=== PATIENT | female | born 1965 | race Caucasian/White ===

== ENCOUNTER 2025-05-06 11:42 | Outpatient (CLI) | payer MEDICARE, MEDICAID, SELFPAY ==
--- NOTE | ~2025-05-06 | XR_ITS ---
EXAM/PROCEDURE: XR lg joint inject/asp w image HISTORY: Unilateral primary osteoarthritis of left hip COMPARISON: None available. TECHNIQUE: Standard technique for right hip steroid injection. Informed consent obtained in the usual manner. Fluoroscopy time: 0.2 minutes DAP: 0.641 Gycm2 Number of images: 2 Contrast: 1 cc Omnipaque 240 1 mL of steroid injected. Steroid injection: Depo-Medrol 40 mg mixed with 4 cc of 1% lidocaine without epinephrine. Procedure: After informed consent was obtained the left hip was prepped and draped in sterile fashion. Lidocaine was infiltrated and 3.5 22-gauge needle was advanced to the lateral aspect of the left femoral neck. Interarticular location confirmed. Steroid injection performed. No immediate complication. IMPRESSION: Patient status post left hip steroid injection. Reviewed, dictated and finalized at location A. [facility] PSYCHOLOGIST
--- OUTSIDE RECORDS SUMMARY | 2025-05-06 12:24 | XMS_ITS | Encounter Summary ---
Author Organization [facility] Address [address] [place] [address] Phone Care Team Providers Care Newborn Hearing Screener Name Role Phone Wes Quintero MD Unavailable [phone] Tala Hill Primary Care Provider + Encounter Details Date Type Department Care Team (Late st Contact Info) Description 04/10/2025 Social Work [facility] Medicine Oncology [address], [address] [place] [address] Nesha Olmedo LCSW Social History Tobacco Use Types Packs/Day Years Used Date Smoking Tobacco: Former Cigarettes 2007 Passive Smoke Exposure: Past OASIS D0700: Social Isolation Answer Da te Recorded Frequency of experiencing loneliness or isolatio n Never 08/10/2024 OASIS A1250: Transportation Answer Date Recorded Lack of Transportation (Medical) No 08/10/2024 Lack of Transportation (Non-Medical) No 08/10/2024 Patient Unable or Declines to Respond No 08/10/2024 OASIS B1300: Health Literacy Answer Anslemo e Recorded Frequency of needing help to read materials from doctor or pharmacy Never 08/10/2024 AUDIT-C Answer Date Recorded Q1: How often do you have a drink containing alcohol? Never 09/28/2024 Q2: How many drinks containi ng alcohol do you have on a typical day when you are drinking? Patient does not drink Q3: How often do you have si x or more drinks on one occasion? Never 09/28/2024 PHQ-2 Answer Date Recorded PHQ-2 Total Score (If total score is 3 or more points, staff should administer the PHQ-9) 0 07/10/2024 Personal Safety Answer Date Recorded Have you ever been in or are you currently in a harmful physical or emotional relationship or is someone making you feel afraid or unsafe? Denies 09/28/2024 Comments No Sex and Gender Information Value Date Recorded Sex Assigned at Not on file Legal Sex Female 4:08 PM CDT Gender Identity Not on file Sexual Orientation Not on file documented as of this encounter Functional Status documented as of this encounter Progress Notes * Nesha Olmedo LCSW - 04/10/2025 12:07 PM CDT Name: Alayna Hawk Age: 59 y.o. Sex: female Race:White,Ethnicity:Non- (home) [address]: [address] [place] [id number] PCP: Tala Hill Upper Doubler Assessment Referral received from: [facility] [place] Lua Information obtained from: Alayna Hawk Patient alert & oriented x 4 Assessment date: 04/10/2025 Best Phone # to Contact: (cell) OK To Leave a Message: yes e-mail: [email or web address] Primary Language: Persian Communication Barriers: none identified Advance Directives: AD/DPOA: yes Concerns Regarding Abuse/Neglect: No.- Patient denied Concerns Regarding Domestic Violence: No.- Patient denied. Living Arrangements: Alayna lives with her family members. Patient reports, due to financial hardships she relocated to her sister's residence in March 2025, accompanied by her two dogs. Lives in: her house. Patient Identified Barriers To Treatment: Transportation concerns: Yes. Patient report that her 74-year-old sister provides transportation to medical appointments. However, due to difficulty seeing driving at night, transportation becomes a barrier when appointments run late, as her sister is unwilling to drive during those hours. Employment/Financial: Alayna is on disability: SSDI. Patient receives 1025.00 benefits monthly. Food Insecurity: Difficulty obtaining/affording food/preparing food: No. Patient linked to SNAP assistance for food access receives ( $119.00 monthly) Social Work $1025.00 Section 8 Housing Sister take care of her 4 hours per day [place] Medicaid Transportation Insurance Information: Name of primary insurance: Payor: [facility] MEDICARE / Plan: [facility] MEDICARE ADVANTAGE / Product Type: [facility] MEDICARE / Who carries insurance: Alayna Hawk Prescription coverage: : [facility] MEDICARE / Plan: [facility] MEDICARE ADVANTAGE / Product Type: [facility] MEDICARE / Any concerns related to insurance - either immediate or in the future? No. Patient denied having any outstanding balance due at [facility] or [facility]. Patient reports having a medical bills from [place], [place] for $1200.00 and seeking financial assistance. VA Benefits: No. Legal Concerns: No. Social Support System: Patient reports having a good support system consisting of three adult children, family and friendslocal and out of state. Coping: Alayna has mental health concerns: No . Patient denies any current mental health concerns. She expressed a strong determination to live for at least five more years. Patient identifies her roman catholic and volunteer activities as sources of community support she connected to. Physical Health Any concerns regarding ADLs? No Services in the home: None Social Work Plan: Social Work and Social Work Student Elisabeth Krishnan met with the patient in the treatment room to assess social drivers of health. Patient identified a potential future need for transportation assistance, as her 74-year-old sister currently provides transportation to medical appointments. Due to difficulty driving at night, transportation becomes a barrier when appointments extend into evening hours as sister will not drive. Advance Directives Patient reported having an established Durable Power of Call Taker for Health Care and verbally identified her sister as the designated agent. Patient verbally nominate as health care agent: Primary Emergency Contact: Myah Robles Address: [address] [place] [phone] [place] Relation: Sister Transportation Assistance Social Work discussed transportation support options available through the patient's insurance provider ([place] Medicaid) and offered assistance with arranging transportation as needed. Patient wasadvised to contact Social Work or the medical team for support when transportation needs arise. Financial Concerns/Distress Social Work provided information/education on: Facility Based financial assistance program through [facility] and provided application to apply. Patient denied having any questions at this time. Patient's Medical Team provided update. Follow-up: Social Work will remain available to provide support as deemed appropriate. Nesha Olmedo LCSW documented in this encounter Plan of Treatment Not on file documented as of this encounter Visit Diagnoses Not on filedocumented in this encounter Care Teams Newborn Hearing Screener Relationship Specialty Start Date End Date Tala Hill PA [address] [facility] [address] [place] [address] PCP - General Family Medicine 07/10/24 Wes Quintero MD Medical Oncologist/Still Operator [facility] Medical Oncology 04/24/24 documented as of this encounter
--- OUTSIDE RECORDS SUMMARY | 2025-05-06 12:24 | XMS_ITS | Encounter Summary ---
Author Organization [facility] Address [address] [place] [address] Phone Care Team Providers Care Workplace Rehabilitation Officer Name Role Phone No, Physician Primary Care Provider [phone] Wes Quintero MD Unavailable [phone] Wes Quintero MD Primary Care Provider [phone] Tala Hill Primary Care Provider + Encounter Details Date Type Department Care Team (Latest Contact Info) Description 05/21/2024 Orders Only [facility] Scanning, Provider Social History Tobacco Use Types Packs/Day Years Used Date Smoking Tobacco: Former Cigarettes Passive Smoke Exposure: Past OASIS D0700: Social Isolation Answer Da te Recorded Frequency of experiencing loneliness or isolatio n Never 05/08/2024 OASIS A1250: Transportation Answer Date Recorded Lack of Transportation (Medical) Yes 05/08/2024 Lack of Transportation (Non-Medical) Yes 05/08/2024 Patient Unable or Declines to Respond No 05/08/2024 OASIS B1300: Health Literacy Answer Anselmo e Recorded Frequency of needing help to read materials from doctor or pharmacy Never 05/08/2024 Personal Safety Answer Date Recorded Have you ever been in or are you currently in a harmful physical or emotional relationship or is someone making you feel afraid or unsafe? Denies 05/16/2024 Comments Unknown Sex and Gender Information Value Date Recorded Sex Assigned at Not on file Legal Sex Female 4:08 PM CDT Gender Identity Not on file Sexual Orientation Not on file documented as of this encounter Plan of Treatment Not on file documented as of this encounter Procedures Procedure Name Priority Date/Time Associated Diagnosis Comments SCAN - LABS 05/21/2024 documented in this encounter Results * SCAN - LABS (05/21/2024) us Provider Scanning Final Result documented in this encounter Visit Diagnoses Not on filedocumented in this encounter Care Teams Workplace Rehabilitation Officer Relationship Specialty Start Date End Date No, Physician PCP - General 04/24/24 06/03/24 Wes Quintero MD PCP - General Medical Oncology 06/04/24 07/09/24 Tala Hill PA [address] [address] PCP - General Family Medicine 07/10/24 Wes Quintero MD Medical Oncologist/Medical Reviewer Medical Oncology 04/24/24 documented as of this encounter
--- OUTSIDE RECORDS SUMMARY | 2025-05-06 12:24 | XMS_ITS | Clinical Summary ---
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 Role Phone Wes Quintero MD Unavailable [place] Primary Care Provider + Allergies Active Allergy Reactions Criticality Noted Date Comments Venom-Honey Bee Sweating Low 03/13/2025 Unclassified Drug Itching Low 09/03/2024 [id number] [id number] Medications prochlorperazine (COMPAZINE) 10 mg tabletIndications :Cancer Chemotherapy-Mariela bernard Nausea and Vomiting,Nausea and Vomiting Take 1 tablet (10 mg total) by mouth every 6 (six) hours as needed for nausea or vomiting Active albuterol HFA (PROVENTIL HFA,VENTOLIN HFA,PROAIR HFA) 90 mcg/actuation inhalerIndication s:Chronic Obstructive Pulmonary Disease Inhale 2 puffs every 6 (six) hours as needed for wheezing Active loperamide (IMODIUM A-D) 2 mg tabletIndications :Chemotherapy-Ind uced Diarrhea Take 2 tablets (4 mg total) by mouth as needed for diarrhea 30 tablet 11 025 Active Additional Information Patient not taking.Reported on 05/02/[address] (NexIUM) 40 mg capsuleIndication s:Primary adenocarcinoma of right lung (HCC),Primary cancer of right lower lobe of lung (HCC),Primary small cell malignant neoplasm of lung, stage 4 (HCC) Take 1 capsule (40 mg total) by mouth daily before breakfast 30 capsule 11 025 Active HYDROcodone-aceta minophen (NORCO) 5-325 mg per tablet Take 1 tablet by mouth every 6 (six) hours Active lidocaine-priloca ine creamIndications: Administration of Local Anesthesia Apply topically as needed for other (prior to each port access) 30 g 1 Active famotidine (PEPCID) 20 mg tablet Active ondansetron (ZOFRAN) 4 mg tabletIndications :Cancer Chemotherapy-Mariela bernard Nausea and Vomiting Take 1 tablet (4 mg total) by mouth every 8 (eight) hours as needed for nausea or vomiting 20 tablet Active al & mag hydroxide with simethicone-diphe nhydramine-lidoca ine (MAGIC MOUTHWASH) suspension 3-1-0Etwtkrqocsd: Adenocarcinoma of right lung (HCC),Primary adenocarcinoma of right lung (HCC),Primary cancer of right lower lobe of lung (HCC),Primary small cell malignant neoplasm of lung, stage 4 (HCC),Primary malignant neoplasm of right lower lobe of lung (HCC),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) Swish and swallow 15 mL every 4 (four) hours as needed (mouth sores) 500 mL 1 Active Antacid-Antigas 400-400-40 mg/5 mL suspension Active diazePAM (VALIUM) 5 mg tabletIndications :Primary adenocarcinoma of right lung (HCC),Primary cancer of right lower lobe of lung (HCC),Primary small cell malignant neoplasm of lung, stage 4 (HCC),Adenocarcin melecio of right lung (HCC),Primary malignant neoplasm of right lower lobe of lung (HCC) Take 1 tablet (5 mg total) by mouth once for 1 dose 1 hour prior to MRI 1 tablet Active budesonide-glycop yr-formoterol (BREZTRI) 160-9-4.8 mcg/actuation inhalerIndication s:Chronic obstructive pulmonary disease, unspecified COPD type (HCC),Shortness of breath,Primary adenocarcinoma of right lung (HCC) Inhale 2 puffs 2 (two) times a day 1 each Active albuterol HFA (ProAir HFA) 90 mcg/actuation inhalerIndication s:Chronic obstructive pulmonary disease, unspecified COPD type (HCC),Shortness of breath,Primary adenocarcinoma of right lung (HCC) Inhale 2 puffs every 4 (four) hours as needed for wheezing or shortness of breath 8.5 g 5 025 2025 Active ipratropium-albut Gertrude (DUO-NEB) 0.5-2.5 mg/3 mL nebulizer solutionIndicatio ns:Chronic obstructive pulmonary disease, unspecified COPD type (HCC),Shortness of breath,Primary adenocarcinoma of right lung (HCC) Take 3 mL by nebulization every 8 (eight) hours as needed for wheezing or shortness of breath 270 mL 3 Active Additional Information Patient not taking.Reported on 05/02/2025 inhalational spacing device ([email or web address] [facility]) spacerIndications :Chronic obstructive pulmonary disease, unspecified COPD type (HCC),Shortness of breath,Primary adenocarcinoma of right lung (HCC) Use with inhaler as directed 1 each Active oxyCODONE (ROXICODONE) 5 mg immediate release tabletIndications :Pain Take 1-2 tablets (5-10 mg total) by mouth every 4 (four) hours as needed for pain 120 tablet Active gabapentin (NEURONTIN) 100 mg capsuleIndication s:Fibromyalgia,Ne uropathy TAKE 1 CAPSULE BY MOUTH 3 TIMES A DAY 90 capsule Active folic acid (FOLVITE) 400 mcg tabletIndications :Folate Deficiency Take 1 tablet (400 mcg total) by mouth daily 2024 Discontinued(P atient Reported) gabapentin (NEURONTIN) 100 mg capsuleIndication s:Fibromyalgia,Ne uropathy Take 1 capsule (100 mg total) by mouth 3 (three) times a day 90 capsule 025 2024 Discontinued oxyCODONE (ROXICODONE) 5 mg immediate release tabletIndications :Pain Take 1-2 tablets (5-10 mg total) by mouth every 4 (four) hours as needed for pain 120 tablet 025 2024 Discontinued(R eorder) Active Problems Problem Noted Date Diagnosed Date Mixed hyperlipidemia 07/10/2024 Port-A-Cath in place 05/10/2024 Primary cancer of right lower lobe of lung 05/02 Bone pain 03/09/2024 Chronic obstructive pulmonary disease 03/09/2024 Assessment & Plan (07/10/2024 12:58 PM MATTRESS FILLER): Chronic, stable. Continue inhalers as prescribed Referral to pulmonology Diverticulosis of colon 03/09/2024 Insomnia 03/09/2024 Primary small cell malignant neoplasm of lung, s tage 4 03/09/2024 Hyperglycemia 12/27/2023 Bilateral chronic knee pain 06/22/2022 Chronic pain of multiple joints 06/22/2022 Fibromyalgia 06/22/2022 Assessment & Plan (07/10/2024 12:58 PM MATTRESS FILLER): Chronic pain, stable. Discussed adding gabapentin 100 mg, mainly for nightly use. 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 Assessment & Plan (07/10/2024 12:58 PM MATTRESS FILLER): Chronic/stable Family history of alpha 1 antitrypsin in mother COPD currently managed with Anoro inhaler Has albuterol inhaler but has not used in some time Referral to pulmonology Encounters Date Type Department Care Team Description 05/02/2025 9:00 AM MATTRESS FILLER Infusion [facility] [address] [facility] [address] 6 [place] [address] Primary small cell malignant neoplasm of lung, stage 4 (HCC) (Primary Dx); Primary adenocarcinoma of right lung (HCC); Primary cancer of right lower lobe of lung (HCC) 05/02/2025 8:00 AM MATTRESS FILLER Office Visit [facility] [address] [place] [address] Floor 6 [place] [address] Virgen Huggins DNP Primary cancer of right lower lobe of lung (HCC) (Primary Dx); Primary adenocarcinoma of right lung (HCC); Primary small cell malignant neoplasm of lung, stage 4 (HCC) 05/02/2025 7:15 AM MATTRESS FILLER Clinical Support [facility] - Lab Collection [facility] [address] 6 [place] [address] Primary adenocarcinoma of right lung (HCC); Primary cancer of right lower lobe of lung (HCC); Primary small cell malignant neoplasm of lung, stage 4 (HCC) 04/24/2025 10:30 AM CDT Infusion [facility] - Infusion [address] [place] [address] Floor 5 [place] [address] Primary small cell malignant neoplasm of lung, stage 4 (HCC) (Primary Dx); Primary adenocarcinoma of right lung (HCC); Primary cancer of right lower lobe of lung (HCC) 04/24/2025 9:20 AM CDT Office Visit [facility] On[facility] [address] [place] [address] Floor 6 [place] [address] Virgen Huggins DNP Primary cancer of right lower lobe of lung (HCC) (Primary Dx); Primary small cell malignant neoplasm of lung, stage 4 (HCC); Primary adenocarcinoma of right lung (HCC) 04/24/2025 8:15 AM CDT Clinical Support [facility] - Lab Collection [address] [place] [address] Floor 5 [place] [address] Primary adenocarcinoma of right lung (HCC); Primary cancer of right lower lobe of lung (HCC); Primary small cell malignant neoplasm of lung, stage 4 (HCC) 04/24/2025 Social Work [facility] [address] [place] [address] [address] 1, [address] [place] [address] Nesha Olmedo LCSW 04/17/2025 10:30 AM CDT Infusion [facility] - Infusion [address] [place] [address] Floor 5 [place] [address] Primary small cell malignant neoplasm of lung, stage 4 (HCC) (Primary Dx); Primary adenocarcinoma of right lung (HCC); Primary cancer of right lower lobe of lung (HCC) 04/17/2025 9:30 AM CDT Office Visit [facility] On[facility] [address] [place] [address] [address] 6 [place] [address] Linda Taylor, [employer] C[employer] DIRECTOR Primary adenocarcinoma of right lung (HCC); Primary cancer of right lower lobe of lung (HCC); Primary small cell malignant neoplasm of lung, stage 4 (HCC) 04/10/2025 10:30 AM CDT Infusion [facility] - Infusion [address] [facility] Floor 5 [place] [address] Primary small cell malignant neoplasm of lung, stage 4 (HCC) (Primary Dx); Primary adenocarcinoma of right lung (HCC); Primary cancer of right lower lobe of lung (HCC) 04/10/2025 9:30 AM CDT Office Visit [facility] Oncology [address] [place] [address] [address] 6 [place] [address] Linda Taylor, [employer] C[employer] DIRECTOR Primary cancer of right lower lobe of lung (HCC) (Primary Dx); Primary adenocarcinoma of right lung (HCC); Primary small cell malignant neoplasm of lung, stage 4 (HCC) 04/10/2025 8:30 AM CDT Clinical Support [facility] - Lab Collection [address] [place] [address] Floor 6 [place] [address] Primary adenocarcinoma of right lung (HCC); Primary cancer of right lower lobe of lung (HCC); Primary small cell malignant neoplasm of lung, stage 4 (HCC) 04/10/2025 Social Work [facility] Oncology [address] [place] [address] [address] 1, [address] [place] [address] Nesha Olmedo LCSW 04/03/2025 10:30 AM CDT Infusion [facility] - Infusion [address] [place] [address] Floor 6 [place] [address] Primary small cell malignant neoplasm of lung, stage 4 (HCC) (Primary Dx); Primary adenocarcinoma of right lung (HCC); Primary cancer of right lower lobe of lung (HCC) 04/03/2025 9:30 AM CDT Office Visit [facility] Oncology [address] [phone] Linda Taylor NP Primary cancer of right lower lobe of lung (HCC) (Primary Dx); Primary adenocarcinoma of right lung (HCC); Primary small cell malignant neoplasm of lung, stage 4 (HCC); Fibromyalgia; Neuropathy 04/03/2025 8:30 AM CDT Clinical Support [facility] - Lab Collection [address] [place] [address] Primary adenocarcinoma of right lung (HCC); Primary cancer of right lower lobe of lung (HCC); Primary small cell malignant neoplasm of lung, stage 4 (HCC) 03/29/2025 12:54 PM CDT - 03/29/2025 11:59 PM CDT Hospital Encounter [facility] [address] [place] [address] Primary adenocarcinoma of right lung (HCC); Primary cancer of right lower lobe of lung (HCC); Primary small cell malignant neoplasm of lung, stage 4 (HCC) Discharge Disposition: Discharge to home or self care 03/29/2025 12:54 PM CDT - 03/29/2025 11:59 PM CDT Hospital Encounter [facility] ([facility]) [address] [place] [phone] Primary adenocarcinoma of right lung (HCC); Primary cancer of right lower lobe of lung (HCC); Primary small cell malignant neoplasm of lung, stage 4 (HCC) Discharge Disposition: Discharge to home or self care 03/27/2025 10:30 AM CDT Infusion [facility] - Infusion [address] [place] [address] Primary small cell malignant neoplasm of lung, stage 4 (HCC) (Primary Dx); Primary adenocarcinoma of right lung (HCC); Primary cancer of right lower lobe of lung (HCC) 03/27/2025 9:30 AM CDT Office Visit [facility] [address] [place] [phone] Linda Taylor, [employer] C[employer] DIRECTOR Primary cancer of right lower lobe of lung (HCC) (Primary Dx); Primary adenocarcinoma of right lung (HCC); Primary small cell malignant neoplasm of lung, stage 4 (HCC) 03/27/2025 Orders Only [facility] [address] [place] [address] 5 [place] [address] Matty Camarillo MD PhD 03/25/2025 Orders Only [facility] [address] [place] [address] [address] 5 [place] [address] Brook Nagy [facility] 03/20/2025 10:30 AM CDT Infusion [facility] - Infusion [address] [facility] [address] 5 [place] [address] Primary small cell malignant neoplasm of lung, stage 4 (HCC) (Primary Dx); Primary adenocarcinoma of right lung (HCC); Primary cancer of right lower lobe of lung (HCC) 03/20/2025 9:45 AM CDT Clinical Support [facility] [address] [place] [address] 5 [place] [address] Primary adenocarcinoma of right lung (HCC) 03/20/2025 9:30 AM CDT Office Visit [facility] [address] [place] [address] 6 [place] [address] Linda Taylor, HOME Primary cancer of right lower lobe of lung (HCC) (Primary Dx); Primary adenocarcinoma of right lung (HCC); Primary small cell malignant neoplasm of lung, stage 4 (HCC) 03/20/2025 8:30 AM CDT Clinical Support [facility] - Lab Collection [address] [place] [address] 6 [place] [address] Primary adenocarcinoma of right lung (HCC); Primary cancer of right lower lobe of lung (HCC); Primary small cell malignant neoplasm of lung, stage 4 (HCC) 03/20/2025 Orders Only [facility] [address] [place] [address] 5 [place] [address] Brook Nagy [facility] 03/20/2025 Orders Only [facility] [address] [place] [address] 5 [place] [address] Emma Varner Primary adenocarcinoma of right lung (HCC) (Primary Dx) 03/15/2025 Telephone [facility] Pulmonary [address] [place] [phone] Blayne Shi MD Med Management 03/13/2025 11:00 AM CDT Office Visit [facility] Pulmonary [place] [address] [facility] [address] [place] [address] Blayne Shi MD Chronic obstructive pulmonary disease, unspecified COPD type (HCC) (Primary Dx); Primary adenocarcinoma of right lung (HCC); Shortness of breath 03/13/2025 Orders Only [facility] Pulmonary [place] [address] [facility] [address] [place] [address] Blayne Shi MD Chronic obstructive pulmonary disease, unspecified COPD type (HCC) (Primary Dx) 03/12/2025 11:00 AM CDT Infusion [facility] - Infusion [address] [facility] [address] 6 [place] [address] Primary small cell malignant neoplasm of lung, stage 4 (HCC) (Primary Dx); Primary adenocarcinoma of right lung (HCC); Primary cancer of right lower lobe of lung (HCC) 03/12/2025 10:00 AM CDT Office Visit [facility] [address] [place] [address] Floor 6 [place] [address] Linda Taylor NP Primary adenocarcinoma of right lung (HCC) (Primary Dx); Primary cancer of right lower lobe of lung (HCC); Primary small cell malignant neoplasm of lung, stage 4 (HCC) 03/12/2025 9:00 AM CDT Clinical Support [facility] - Lab Collection [facility] [address] 6 [place] [address] Primary adenocarcinoma of right lung (HCC); Primary cancer of right lower lobe of lung (HCC); Primary small cell malignant neoplasm of lung, stage 4 (HCC) 03/04/2025 10:30 AM CDT Infusion [facility] - Infusion [address] [facility] [address] 6 [place] [address] Primary small cell malignant neoplasm of lung, stage 4 (HCC) (Primary Dx); Primary adenocarcinoma of right lung (HCC); Primary cancer of right lower lobe of lung (HCC) 03/04/2025 9:30 AM CDT Office Visit [facility] Floor 6 [place] [address] Linda Taylor NP Primary small cell malignant neoplasm of lung, stage 4 (HCC) (Primary Dx); Primary adenocarcinoma of right lung (HCC); Primary cancer of right lower lobe of lung (HCC) 03/04/2025 6:59 AM CDT - 03/04/2025 11:59 PM CDT Hospital Encounter [facility] [address] [facility] Floor 1, [address] [place] [address] Primary adenocarcinoma of right lung (HCC) Discharge Disposition: Discharge to home or self care 02/26/2025 10:30 AM CDT Infusion [facility]fusion [address] [facility] [address] 6 [place] [address] Primary small cell malignant neoplasm of lung, stage 4 (HCC) (Primary Dx); Primary adenocarcinoma of right lung (HCC); Primary cancer of right lower lobe of lung (HCC) 02/26/2025 9:20 AM CDT Office Visit [facility] [address] [place] [address] 6 [place] [address] Virgen Huggins DNP Primary adenocarcinoma of right lung (HCC); Primary cancer of right lower lobe of lung (HCC); Primary small cell malignant neoplasm of lung, stage 4 (HCC) 02/26/2025 8:30 AM CDT Clinical Support [facility] - Lab Collection [address] [facility] [address] 6 [place] [address] Primary adenocarcinoma of right lung (HCC); Primary cancer of right lower lobe of lung (HCC); Primary small cell malignant neoplasm of lung, stage 4 (HCC) 02/21/2025 12:38 PM CDT - 02/21/2025 11:59 PM CDT Hospital Encounter [facility] ([facility] [address] [place] [address] Primary adenocarcinoma of right lung (HCC); Primary cancer of right lower lobe of lung (HCC); Primary small cell malignant neoplasm of lung, stage 4 (HCC) Discharge Disposition: Discharge to home or self care 02/21/2025 12:38 PM CDT - 02/21/2025 11:59 PM CDT Hospital Encounter [facility] ([facility]) [address] [place] [address] Primary adenocarcinoma of right lung (HCC); Primary cancer of right lower lobe of lung (HCC); Primary small cell malignant neoplasm of lung, stage 4 (HCC) Discharge Disposition: Discharge to home or self care 02/18/2025 9:30 AM CDT Infusion [facility] - Infusion [address] [facility] [address] 6 [place] [address] Primary small cell malignant neoplasm of lung, stage 4 (HCC) (Primary Dx); Primary adenocarcinoma of right lung (HCC); Primary cancer of right lower lobe of lung (HCC) 02/18/2025 8:30 AM CDT Office Visit [facility] [address] [place] [phone] Linda Taylor, [employer] Primary adenocarcinoma of right lung (HCC); Primary cancer of right lower lobe of lung (HCC); Primary small cell malignant neoplasm of lung, stage 4 (HCC) 02/18/2025 7:30 AM CDT Clinical Support [facility] [address] [place] [phone] Primary adenocarcinoma of right lung (HCC); Primary cancer of right lower lobe of lung (HCC); Primary small cell malignant neoplasm of lung, stage 4 (HCC) 02/18/2025 7:15 AM CDT Clinical Support [facility] - Lab Collection [address] [place] [address] 6 [place] [address] Primary adenocarcinoma of right lung (HCC); Primary cancer of right lower lobe of lung (HCC); Primary small cell malignant neoplasm of lung, stage 4 (HCC) 02/11/2025 9:30 AM CDT Infusion [facility] - Infusion [address] [facility] [address] [place] [address] Primary small cell malignant neoplasm of lung, stage 4 (HCC) (Primary Dx); Primary adenocarcinoma of right lung (HCC); Primary cancer of right lower lobe of lung (HCC) 02/11/2025 8:30 AM CDT Office Visit [facility] [address] [place] [phone] Linda Taylor NP Primary small cell malignant neoplasm of lung, stage 4 (HCC) (Primary Dx); Primary adenocarcinoma of right lung (HCC); Primary cancer of right lower lobe of lung (HCC) 02/11/2025 8:00 AM CDT Clinical Support [facility] [address] [place] [address] 02/04/2025 9:30 AM CDT Infusion [facility] - Infusion [address] [place] [address] 6 [place] [address] Primary small cell malignant neoplasm of lung, stage 4 (HCC) (Primary Dx); Primary adenocarcinoma of right lung (HCC); Primary cancer of right lower lobe of lung (HCC) 02/04/2025 8:30 AM CDT Office Visit [facility] [address] [place] [phone] Linda Taylor NP Primary adenocarcinoma of right lung (HCC); Primary cancer of right lower lobe of lung (HCC); Primary small cell malignant neoplasm of lung, stage 4 (HCC) 02/04/2025 7:30 AM CDT Clinical Support [facility] [address] [place] [phone] Primary adenocarcinoma of right lung (HCC); Primary cancer of right lower lobe of lung (HCC); Primary small cell malignant neoplasm of lung, stage 4 (HCC) 02/04/2025 7:15 AM CDT Clinical Support [facility] Lab [facility] [address] [place] [address] Primary adenocarcinoma of right lung (HCC); Primary cancer of right lower lobe of lung (HCC); Primary small cell malignant neoplasm of lung, stage 4 (HCC) from Last 3 Months Immunizations Immunization Administration Dates Next Due Hep A / Hep B 07/23/2014 Influenza, Quadrivalent, Spl it, Preservative Free, Intramuscular 03/24/2020,04/11/2019,06/07/2018 Influenza, Unspecified 04/13/2024(Deferr ed: Patient decision),03/27/2024,04/13/2023(Deferr ed: Patient decision) Pneumococcal Conjugate Pcv20 03/09/2022 Pneumococcal Polysaccharide PPV23 06/28/2019, Td, adsorbed 10/31/2006 Tdap 05/29/2021 Surgical History Surgery Date Site/Laterality Comments TUNNELED LINE PLACEMENT > 5 YEARS 12/28/2023 N/A PORT PLACEMENT CHEST >5 YEARS 06/22/2018 N/A GALLBLADDER SURGERY SECTION Medical History Medical History Date Comments COPD (chronic obstructive pulmonary disease) Stage 4 lung cancer, unspecified laterality (HCC ) PAD (peripheral artery disease) Family History Medical History Relation Name Comments Stomach cancer Brother 1 Liver disease Brother 2 Liver disease Brother 3 Lung cancer Brother 4 COPD Father Liver disease Mother Heart disease Paternal Grandmother Alzheimer's disease Sister 1 Kidney disease Sister 2 Liver disease Sister 3 Relation Name Status Comments Brother 1 Brother 2 Brother 3 Brother 4 Father Mother Mother's Sister Alive Paternal Grandmother Sister 1 Alive Sister 2 Alive Sister 3 Social History Tobacco Use Types Packs/Day Years Used Date Smoking Tobacco: Former Cigarettes 2007 Passive Smoke Exposure: Past Tobacco Cessation:Counseling Given: Not Answered OASIS D0700: Social Isolation Answer Da te Recorded Frequency of experiencing loneliness or isolatio n Never 08/10/2024 OASIS A1250: Transportation Answer Date Recorded Lack of Transportation (Medical) No 08/10/2024 Lack of Transportation (Non-Medical) No 08/10/2024 Patient Unable or Declines to Respond No 08/10/2024 OASIS B1300: Health Literacy Answer Anselmo e [...] on file Sexual Orientation Not on file Last Filed Vital Signs Vital Sign Reading Time Taken Comments Blood Pressure 144/77 05/02/2025 8:46 AM MATTRESS [employer]ER Pulse 78 05/02/2025 8:46 AM MATTRESS F[employer]ER Temperature 36.4 C (97.5 F) 05/02/2025 8:46 AM MATTRESS FILLER Respiratory Rate 18 05/02/2025 8:46 AM MATTRESS FILLER Oxygen Saturation 95% 05/02/2025 8:4 6 AM MATTRESS F[employer]ER Inhaled Oxygen Concentration - - Weight 72.1 kg (159 lb) 05/02/2025 7:40 AM MATTRESS FILLER pt will not take off shoes Height 167.6 cm (5' 6) 04/24/2025 8:29 AM CDT Body Mass Index 25.66 04/24/2025 8:29 AM CDT Plan of Treatment Health Maintenance Due Date Last Done Comments Breast Cancer Screening-Mammogram 1965 Cervical Cancer Screening 1965 Regular Well Visit/Exam 18-64 1981 Zoster Vaccine (1 of 2) 2013 Covid-19 Vaccine (3 - Pfizer risk series) 10/29/2020 10/01/2020, 09/10/2020 Influenza Vaccine (#1) 2025 4, 03/24/2020, 04/11/2019, Additional history exists Depression Screening 07/10/2025 07/10/2024 Colon Cancer Screening-Colonoscopy 04/25/20302019 DTaP/Tdap/Td Vaccine (2 - Td or Tdap) 05/29/2031 05/29/2021, 10/31/2006 Pneumococcal vaccine <65 Completed 022, 06/28/2019, 08/23/2014 Hepatitis C Screening Completed 08/28/2024 Medical Devices Implanted Type Area Associate Professor Of Mathematics Device Identifier Shelf Expiration Date Model / Serial / Lot Port-06/22/2018 Implanted:2017 (Quantity not on file) Chest Procedures Procedure Name Priority Date/Time Associated Diagnosis Comments URINALYSIS, MICROSCOPIC ONLY STAT 05/02/2025 7:47 AM MATTRESS FILLER Primary adenocarcinoma of right lung (HCC) Primary cancer of right lower lobe of lung (HCC) Primary small cell malignant neoplasm of lung, stage 4 (HCC) URINALYSIS AND REFLEX TO MICROSCOPIC AND CULTURE STAT 05/02/2025 7:47 AM MATTRESS F[employer]ER Primary adenocarcinoma of right lung (HCC) Primary cancer of right lower lobe of lung (HCC) Primary small cell malignant neoplasm of lung, stage 4 (HCC) EGFR STAT 05/02/2025 7:21 AM MATTRESS FILLER Primary adenocarcinoma of right lung (HCC) Primary cancer of right lower lobe of lung (HCC) Primary small cell malignant neoplasm of lung, stage 4 (HCC) DIFFERENTIAL AUTO STAT 05/02/2025 7:2 1 AM M[employer]ESS F[employer]ER Primary adenocarcinoma of right lung (HCC) Primary cancer of right lower lobe of lung (HCC) Primary small cell malignant neoplasm of lung, stage 4 (HCC) CBC WITH AUTO DIFFERENTIAL STAT 05/02/2025 7:21 AM MATTRESS F[employer]ER Primary adenocarcinoma of right lung (HCC) Primary cancer of right lower lobe of lung (HCC) Primary small cell malignant neoplasm of lung, stage 4 (HCC) COMPREHENSIVE METABOLIC PANEL STAT 05/02/2025 7:21 AM MATTRESS F[employer]ER Primary adenocarcinoma of right lung (HCC) Primary cancer of right lower lobe of lung (HCC) Primary small cell malignant neoplasm of lung, stage 4 (HCC) PHOSPHORUS STAT 05/02/2025 7:21 AM MATTRESS F[employer]ER Primary adenocarcinoma of right lung (HCC) Primary cancer of right lower lobe of lung (HCC) Primary small cell malignant neoplasm of lung, stage 4 (HCC) MAGNESIUM STAT 05/02/2025 7:21 AM MATTRESS F[employer]ER Primary adenocarcinoma of right lung (HCC) Primary cancer of right lower lobe of lung (HCC) Primary small cell malignant neoplasm of lung, stage 4 (HCC) CREATINE KINASE (CK), TOTAL STAT 05/02/2025 7:21 AM MATTRESS FILLER Primary adenocarcinoma of right lung (HCC) Primary cancer of right lower lobe of lung (HCC) Primary small cell malignant neoplasm of lung, stage 4 (HCC) BILIRUBIN, DIRECT Routine 05/02/2025 7:2 1 AM M[employer]ESS FILLER Primary adenocarcinoma of right lung (HCC) Primary cancer of right lower lobe of lung (HCC) Primary small cell malignant neoplasm of lung, stage 4 (HCC) LACTATE DEHYDROGENASE Routine 05/02/2025 7:21 AM MATTRESS FILLER Primary adenocarcinoma of right lung (HCC) Primary cancer of right lower lobe of lung (HCC) Primary small cell malignant neoplasm of lung, stage 4 (HCC) TSH Routine 05/02/2025 7:21 AM MATTRESS F[employer]ER Primary adenocarcinoma of right lung (HCC) Primary cancer of right lower lobe of lung (HCC) Primary small cell malignant neoplasm of lung, stage 4 (HCC) T3, FREE Routine 05/02/2025 7:21 AM MATTRESS FILLER Primary adenocarcinoma of right lung (HCC) Primary cancer of right lower lobe of lung (HCC) Primary small cell malignant neoplasm of lung, stage 4 (HCC) T4, FREE Routine 05/02/2025 7:21 AM MATTRESS FILLER Primary adenocarcinoma of right lung (HCC) Primary cancer of right lower lobe of lung (HCC) Primary small cell malignant neoplasm of lung, stage 4 (HCC) PTH Routine 05/02/2025 7:21 AM MATTRESS FILLER Primary adenocarcinoma of right lung (HCC) Primary cancer of right lower lobe of lung (HCC) Primary small cell malignant neoplasm of lung, stage 4 (HCC) URINALYSIS, MICROSCOPIC ONLY STAT 04/24/2025 8:41 AM CDT Primary adenocarcinoma of right lung (HCC) Primary cancer of right lower lobe of lung (HCC) Primary small cell malignant neoplasm of lung, stage 4 (HCC) URINALYSIS AND REFLEX TO MICROSCOPIC AND CULTURE STAT 04/24/2025 8:41 AM CDT Primary adenocarcinoma of right lung (HCC) Primary cancer of right lower lobe of lung (HCC) Primary small cell malignant neoplasm of lung, stage 4 (HCC) EGFR STAT 04/24/2025 8:18 AM CDT Primary adenocarcinoma of right lung (HCC) Primary cancer of right lower lobe of lung (HCC) Primary small cell malignant neoplasm of lung, stage 4 (HCC) DIFFERENTIAL AUTO STAT 04/24/2025 8:1 8 AM CDT Primary adenocarcinoma of right lung (HCC) Primary cancer of right lower lobe of lung (HCC) Primary small cell malignant neoplasm of lung, stage 4 (HCC) CBC WITH AUTO DIFFERENTIAL STAT 04/24/2025 8:18 AM CDT Primary adenocarcinoma of right lung (HCC) Primary cancer of right lower lobe of lung (HCC) Primary small cell malignant neoplasm of lung, stage 4 (HCC) COMPREHENSIVE METABOLIC PANEL STAT 04/24/2025 8:18 AM CDT Primary adenocarcinoma of right lung (HCC) Primary cancer of right lower lobe of lung (HCC) Primary small cell malignant neoplasm of lung, stage 4 (HCC) PHOSPHORUS STAT 04/24/2025 8:18 AM CDT Primary adenocarcinoma of right lung (HCC) Primary cancer of right lower lobe of lung (HCC) Primary small cell malignant neoplasm of lung, stage 4 (HCC) MAGNESIUM STAT 04/24/2025 8:18 AM CDT Primary adenocarcinoma of right lung (HCC) Primary cancer of right lower lobe of lung (HCC) Primary small cell malignant neoplasm of lung, stage 4 (HCC) CREATINE KINASE (CK), TOTAL STAT 04/24/2025 8:18 AM CDT Primary adenocarcinoma of right lung (HCC) Primary cancer of right lower lobe of lung (HCC) Primary small cell malignant neoplasm of lung, stage 4 (HCC) BILIRUBIN, DIRECT Routine 04/24/2025 8:1 8 AM CDT Primary adenocarcinoma of right lung (HCC) Primary cancer of right lower lobe of lung (HCC) Primary small cell malignant neoplasm of lung, stage 4 (HCC) LACTATE DEHYDROGENASE Routine 04/24/2025 8:18 AM CDT Primary adenocarcinoma of right lung (HCC) Primary cancer of right lower lobe of lung (HCC) Primary small cell malignant neoplasm of lung, stage 4 (HCC) TSH Routine 04/24/2025 8:18 AM CDT Primary adenocarcinoma of right lung (HCC) Primary cancer of right lower lobe of lung (HCC) Primary small cell malignant neoplasm of lung, stage 4 (HCC) T3, FREE Routine 04/24/2025 8:18 AM CDT Primary adenocarcinoma of right lung (HCC) Primary cancer of right lower lobe of lung (HCC) Primary small cell malignant neoplasm of lung, stage 4 (HCC) T4, FREE Routine 04/24/2025 8:18 AM CDT Primary adenocarcinoma of right lung (HCC) Primary cancer of right lower lobe of lung (HCC) Primary small cell malignant neoplasm of lung, stage 4 (HCC) PTH Routine 04/24/2025 8:18 AM CDT Primary adenocarcinoma of right lung (HCC) Primary cancer of right lower lobe of lung (HCC) Primary small cell malignant neoplasm of lung, stage 4 (HCC) URINALYSIS, MICROSCOPIC ONLY STAT 04/10/2025 9:40 AM CDT Primary adenocarcinoma of right lung (HCC) Primary cancer of right lower lobe of lung (HCC) Primary small cell malignant neoplasm of lung, stage 4 (HCC) URINALYSIS AND REFLEX TO MICROSCOPIC AND CULTURE STAT 04/10/2025 9:40 AM CDT Primary adenocarcinoma of right lung (HCC) Primary cancer of right lower lobe of lung (HCC) Primary small cell malignant neoplasm of lung, stage 4 (HCC) EGFR STAT 04/10/2025 8:48 AM CDT Primary adenocarcinoma of right lung (HCC) Primary cancer of right lower lobe of lung (HCC) Primary small cell malignant neoplasm of lung, stage 4 (HCC) COMPREHENSIVE METABOLIC PANEL STAT 04/10/2025 8:48 AM CDT Primary adenocarcinoma of right lung (HCC) Primary cancer of right lower lobe of lung (HCC) Primary small cell malignant neoplasm of lung, stage 4 (HCC) PHOSPHORUS STAT 04/10/2025 8:48 AM CDT Primary adenocarcinoma of right lung (HCC) Primary cancer of right lower lobe of lung (HCC) Primary small cell malignant neoplasm of lung, stage 4 (HCC) MAGNESIUM STAT 04/10/2025 8:48 AM CDT Primary adenocarcinoma of right lung (HCC) Primary cancer of right lower lobe of lung (HCC) Primary small cell malignant neoplasm of lung, stage 4 (HCC) CREATINE KINASE (CK), TOTAL STAT 04/10/2025 8:48 AM CDT Primary adenocarcinoma of right lung (HCC) Primary cancer of right lower lobe of lung (HCC) Primary small cell malignant neoplasm of lung, stage 4 (HCC) BILIRUBIN, DIRECT Routine 04/10/2025 8:4 8 AM CDT Primary adenocarcinoma of right lung (HCC) Primary cancer of right lower lobe of lung (HCC) Primary small cell malignant neoplasm of lung, stage 4 (HCC) LACTATE DEHYDROGENASE Routine 04/10/2025 8:48 AM CDT Primary adenocarcinoma of right lung (HCC) Primary cancer of right lower lobe of lung (HCC) Primary small cell malignant neoplasm of lung, stage 4 (HCC) TSH Routine 04/10/2025 8:48 AM CDT Primary adenocarcinoma of right lung (HCC) Primary cancer of right lower lobe of lung (HCC) Primary small cell malignant neoplasm of lung, stage 4 (HCC) T3, FREE Routine 04/10/2025 8:48 AM CDT Primary adenocarcinoma of right lung (HCC) Primary cancer of right lower lobe of lung (HCC) Primary small cell malignant neoplasm of lung, stage 4 (HCC) T4, FREE Routine 04/10/2025 8:48 AM CDT Primary adenocarcinoma of right lung (HCC) Primary cancer of right lower lobe of lung (HCC) Primary small cell malignant neoplasm of lung, stage 4 (HCC) PTH Routine 04/10/2025 8:48 AM CDT Primary adenocarcinoma of right lung (HCC) Primary cancer of right lower lobe of lung (HCC) Primary small cell malignant neoplasm of lung, stage 4 (HCC) DIFFERENTIAL AUTO STAT 04/10/2025 8:4 5 AM CDT Primary adenocarcinoma of right lung (HCC) Primary cancer of right lower lobe of lung (HCC) Primary small cell malignant neoplasm of lung, stage 4 (HCC) CBC WITH AUTO DIFFERENTIAL STAT 04/10/2025 8:45 AM CDT Primary adenocarcinoma of right lung (HCC) Primary cancer of right lower lobe of lung (HCC) Primary small cell malignant neoplasm of lung, stage 4 (HCC) URINALYSIS, MICROSCOPIC ONLY STAT 04/03/2025 10:15 AM CDT Primary adenocarcinoma of right lung (HCC) Primary cancer of right lower lobe of lung (HCC) Primary small cell malignant neoplasm of lung, stage 4 (HCC) URINALYSIS AND REFLEX TO MICROSCOPIC AND CULTURE STAT 04/03/2025 10:15 AM CDT Primary adenocarcinoma of right lung (HCC) Primary cancer of right lower lobe of lung (HCC) Primary small cell malignant neoplasm of lung, stage 4 (HCC) EGFR STAT 04/03/2025 8:42 AM CDT Primary adenocarcinoma of right lung (HCC) Primary cancer of right lower lobe of lung (HCC) Primary small cell malignant neoplasm of lung, stage 4 (HCC) DIFFERENTIAL AUTO STAT 04/03/2025 8:4 2 AM CDT Primary adenocarcinoma of right lung (HCC) Primary cancer of right lower lobe of lung (HCC) Primary small cell malignant neoplasm of lung, stage 4 (HCC) CBC WITH AUTO DIFFERENTIAL STAT 04/03/2025 8:42 AM CDT Primary adenocarcinoma of right lung (HCC) Primary cancer of right lower lobe of lung (HCC) Primary small cell malignant neoplasm of lung, stage 4 (HCC) COMPREHENSIVE METABOLIC PANEL STAT 04/03/2025 8:42 AM CDT Primary adenocarcinoma of right lung (HCC) Primary cancer of right lower lobe of lung (HCC) Primary small cell malignant neoplasm of lung, stage 4 (HCC) PHOSPHORUS STAT 04/03/2025 8:42 AM CDT Primary adenocarcinoma of right lung (HCC) Primary cancer of right lower lobe of lung (HCC) Primary small cell malignant neoplasm of lung, stage 4 (HCC) MAGNESIUM STAT 04/03/2025 8:42 AM CDT Primary adenocarcinoma of right lung (HCC) Primary cancer of right lower lobe of lung (HCC) Primary small cell malignant neoplasm of lung, stage 4 (HCC) CREATINE KINASE (CK), TOTAL STAT 04/03/2025 8:42 AM CDT Primary adenocarcinoma of right lung (HCC) Primary cancer of right lower lobe of lung (HCC) Primary small cell malignant neoplasm of lung, stage 4 (HCC) BILIRUBIN, DIRECT Routine 04/03/2025 8:4 2 AM CDT Primary adenocarcinoma of right lung (HCC) Primary cancer of right lower lobe of lung (HCC) Primary small cell malignant neoplasm of lung, stage 4 (HCC) LACTATE DEHYDROGENASE Routine 04/03/2025 8:42 AM CDT Primary adenocarcinoma of right lung (HCC) Primary cancer of right lower lobe of lung (HCC) Primary small cell malignant neoplasm of lung, stage 4 (HCC) TSH Routine 04/03/2025 8:42 AM CDT Primary adenocarcinoma of right lung (HCC) Primary cancer of right lower lobe of lung (HCC) Primary small cell malignant neoplasm of lung, stage 4 (HCC) T3, FREE Routine 04/03/2025 8:42 AM CDT Primary adenocarcinoma of right lung (HCC) Primary cancer of right lower lobe of lung (HCC) Primary small cell malignant neoplasm of lung, stage 4 (HCC) T4, FREE Routine 04/03/2025 8:42 AM CDT Primary adenocarcinoma of right lung (HCC) Primary cancer of right lower lobe of lung (HCC) Primary small cell malignant neoplasm of lung, stage 4 (HCC) PTH Routine 04/03/2025 8:42 AM CDT Primary adenocarcinoma of right lung (HCC) Primary cancer of right lower lobe of lung (HCC) Primary small cell malignant neoplasm of lung, stage 4 (HCC) MRI BRAIN W WO CONTRAST Schedule Routine, Read Routine (OP Routine) 03/29/2025 2:38 PM CDT Primary adenocarcinoma of right lung (HCC) Primary cancer of right lower lobe of lung (HCC) Primary small cell malignant neoplasm of lung, stage 4 (HCC) CT CHEST ABDOMEN PELVIS W CONTRAST Schedule Routine, Read Routine (OP Routine) 03/29/2025 1:45 PM CDT Primary adenocarcinoma of right lung (HCC) Primary cancer of right lower lobe of lung (HCC) Primary small cell malignant neoplasm of lung, stage 4 (HCC) URINALYSIS, MICROSCOPIC ONLY STAT 03/20/2025 8:56 AM CDT Primary adenocarcinoma of right lung (HCC) Primary cancer of right lower lobe of lung (HCC) Primary small cell malignant neoplasm of lung, stage 4 (HCC) URINALYSIS AND REFLEX TO MICROSCOPIC AND CULTURE STAT 03/20/2025 8:56 AM CDT Primary adenocarcinoma of right lung (HCC) Primary cancer of right lower lobe of lung (HCC) Primary small cell malignant neoplasm of lung, stage 4 (HCC) EGFR STAT 03/20/2025 8:37 AM CDT Primary adenocarcinoma of right lung (HCC) Primary cancer of right lower lobe of lung (HCC) Primary small cell malignant neoplasm of lung, stage 4 (HCC) DIFFERENTIAL AUTO STAT 03/20/2025 8:3 7 AM CDT Primary adenocarcinoma of right lung (HCC) Primary cancer of right lower lobe of lung (HCC) Primary small cell malignant neoplasm of lung, stage 4 (HCC) CBC WITH AUTO DIFFERENTIAL STAT 03/20/2025 8:37 AM CDT Primary adenocarcinoma of right lung (HCC) Primary cancer of right lower lobe of lung (HCC) Primary small cell malignant neoplasm of lung, stage 4 (HCC) COMPREHENSIVE METABOLIC PANEL STAT 03/20/2025 8:37 AM CDT Primary adenocarcinoma of right lung (HCC) Primary cancer of right lower lobe of lung (HCC) Primary small cell malignant neoplasm of lung, stage 4 (HCC) PHOSPHORUS STAT 03/20/2025 8:37 AM CDT Primary adenocarcinoma of right lung (HCC) Primary cancer of right lower lobe of lung (HCC) Primary small cell malignant neoplasm of lung, stage 4 (HCC) MAGNESIUM STAT 03/20/2025 8:37 AM CDT Primary adenocarcinoma of right lung (HCC) Primary cancer of right lower lobe of lung (HCC) Primary small cell malignant neoplasm of lung, stage 4 (HCC) CREATINE KINASE (CK), TOTAL STAT 03/20/2025 8:37 AM CDT Primary adenocarcinoma of right lung (HCC) Primary cancer of right lower lobe of lung (HCC) Primary small cell malignant neoplasm of lung, stage 4 (HCC) BILIRUBIN, DIRECT Routine 03/20/2025 8:3 7 AM CDT Primary adenocarcinoma of right lung (HCC) Primary cancer of right lower lobe of lung (HCC) Primary small cell malignant neoplasm of lung, stage 4 (HCC) LACTATE DEHYDROGENASE Routine 03/20/2025 8:37 AM CDT Primary adenocarcinoma of right lung (HCC) Primary cancer of right lower lobe of lung (HCC) Primary small cell malignant neoplasm of lung, stage 4 (HCC) TSH Routine 03/20/2025 8:37 AM CDT Primary adenocarcinoma of right lung (HCC) Primary cancer of right lower lobe of lung (HCC) Primary small cell malignant neoplasm of lung, stage 4 (HCC) T3, FREE Routine 03/20/2025 8:37 AM CDT Primary adenocarcinoma of right lung (HCC) Primary cancer of right lower lobe of lung (HCC) Primary small cell malignant neoplasm of lung, stage 4 (HCC) T4, FREE Routine 03/20/2025 8:37 AM CDT Primary adenocarcinoma of right lung (HCC) Primary cancer of right lower lobe of lung (HCC) Primary small cell malignant neoplasm of lung, stage 4 (HCC) PTH Routine 03/20/2025 8:37 AM CDT Primary adenocarcinoma of right lung (HCC) Primary cancer of right lower lobe of lung (HCC) Primary small cell malignant neoplasm of lung, stage 4 (HCC) URINALYSIS, MICROSCOPIC ONLY STAT 03/12/2025 9:13 AM CDT Primary adenocarcinoma of right lung (HCC) Primary cancer of right lower lobe of lung (HCC) Primary small cell malignant neoplasm of lung, stage 4 (HCC) URINALYSIS AND REFLEX TO MICROSCOPIC AND CULTURE STAT 03/12/2025 9:13 AM CDT Primary adenocarcinoma of right lung (HCC) Primary cancer of right lower lobe of lung (HCC) Primary small cell malignant neoplasm of lung, stage 4 (HCC) EGFR STAT 03/12/2025 9:02 AM CDT Primary adenocarcinoma of right lung (HCC) Primary cancer of right lower lobe of lung (HCC) Primary small cell malignant neoplasm of lung, stage 4 (HCC) DIFFERENTIAL AUTO STAT 03/12/2025 9:0 2 AM CDT Primary adenocarcinoma of right lung (HCC) Primary cancer of right lower lobe of lung (HCC) Primary small cell malignant neoplasm of lung, stage 4 (HCC) CBC WITH AUTO DIFFERENTIAL STAT 03/12/2025 9:02 AM CDT Primary adenocarcinoma of right lung (HCC) Primary cancer of right lower lobe of lung (HCC) Primary small cell malignant neoplasm of lung, stage 4 (HCC) COMPREHENSIVE METABOLIC PANEL STAT 03/12/2025 9:02 AM CDT Primary adenocarcinoma of right lung (HCC) Primary cancer of right lower lobe of lung (HCC) Primary small cell malignant neoplasm of lung, stage 4 (HCC) PHOSPHORUS STAT 03/12/2025 9:02 AM CDT Primary adenocarcinoma of right lung (HCC) Primary cancer of right lower lobe of lung (HCC) Primary small cell malignant neoplasm of lung, stage 4 (HCC) MAGNESIUM STAT 03/12/2025 9:02 AM CDT Primary adenocarcinoma of right lung (HCC) Primary cancer of right lower lobe of lung (HCC) Primary small cell malignant neoplasm of lung, stage 4 (HCC) CREATINE KINASE (CK), TOTAL STAT 03/12/2025 9:02 AM CDT Primary adenocarcinoma of right lung (HCC) Primary cancer of right lower lobe of lung (HCC) Primary small cell malignant neoplasm of lung, stage 4 (HCC) BILIRUBIN, DIRECT Routine 03/12/2025 9:0 2 AM CDT Primary adenocarcinoma of right lung (HCC) Primary cancer of right lower lobe of lung (HCC) Primary small cell malignant neoplasm of lung, stage 4 (HCC) LACTATE DEHYDROGENASE Routine 03/12/2025 9:02 AM CDT Primary adenocarcinoma of right lung (HCC) Primary cancer of right lower lobe of lung (HCC) Primary small cell malignant neoplasm of lung, stage 4 (HCC) TSH Routine 03/12/2025 9:02 AM CDT Primary adenocarcinoma of right lung (HCC) Primary cancer of right lower lobe of lung (HCC) Primary small cell malignant neoplasm of lung, stage 4 (HCC) T3, FREE Routine 03/12/2025 9:02 AM CDT Primary adenocarcinoma of right lung (HCC) Primary cancer of right lower lobe of lung (HCC) Primary small cell malignant neoplasm of lung, stage 4 (HCC) T4, FREE Routine 03/12/2025 9:02 AM CDT Primary adenocarcinoma of right lung (HCC) Primary cancer of right lower lobe of lung (HCC) Primary small cell malignant neoplasm of lung, stage 4 (HCC) PTH Routine 03/12/2025 9:02 AM CDT Primary adenocarcinoma of right lung (HCC) Primary cancer of right lower lobe of lung (HCC) Primary small cell malignant neoplasm of lung, stage 4 (HCC) PULMONARY FUNCTION TEST (PFT) Routine 03/04/2025 8:00 AM CDT Primary adenocarcinoma of right lung (HCC) URINALYSIS AND REFLEX TO MICROSCOPIC AND CULTURE STAT 02/26/2025 8:57 AM CDT Primary adenocarcinoma of right lung (HCC) Primary cancer of right lower lobe of lung (HCC) Primary small cell malignant neoplasm of lung, stage 4 (HCC) DIFFERENTIAL AUTO STAT 02/26/2025 8:1 0 AM CDT Primary adenocarcinoma of right lung (HCC) Primary cancer of right lower lobe of lung (HCC) Primary small cell malignant neoplasm of lung, stage 4 (HCC) CBC WITH AUTO DIFFERENTIAL STAT 02/26/2025 8:10 AM CDT Primary adenocarcinoma of right lung (HCC) Primary cancer of right lower lobe of lung (HCC) Primary small cell malignant neoplasm of lung, stage 4 (HCC) EGFR STAT 02/26/2025 8:10 AM CDT Primary adenocarcinoma of right lung (HCC) Primary cancer of right lower lobe of lung (HCC) Primary small cell malignant neoplasm of lung, stage 4 (HCC) COMPREHENSIVE METABOLIC PANEL STAT 02/26/2025 8:10 AM CDT Primary adenocarcinoma of right lung (HCC) Primary cancer of right lower lobe of lung (HCC) Primary small cell malignant neoplasm of lung, stage 4 (HCC) PHOSPHORUS STAT 02/26/2025 8:10 AM CDT Primary adenocarcinoma of right lung (HCC) Primary cancer of right lower lobe of lung (HCC) Primary small cell malignant neoplasm of lung, stage 4 (HCC) MAGNESIUM STAT 02/26/2025 8:10 AM CDT Primary adenocarcinoma of right lung (HCC) Primary cancer of right lower lobe of lung (HCC) Primary small cell malignant neoplasm of lung, stage 4 (HCC) CREATINE KINASE (CK), TOTAL STAT 02/26/2025 8:10 AM CDT Primary adenocarcinoma of right lung (HCC) Primary cancer of right lower lobe of lung (HCC) Primary small cell malignant neoplasm of lung, stage 4 (HCC) BILIRUBIN, DIRECT Routine 02/26/2025 8:1 0 AM CDT Primary adenocarcinoma of right lung (HCC) Primary cancer of right lower lobe of lung (HCC) Primary small cell malignant neoplasm of lung, stage 4 (HCC) LACTATE DEHYDROGENASE Routine 02/26/2025 8:10 AM CDT Primary adenocarcinoma of right lung (HCC) Primary cancer of right lower lobe of lung (HCC) Primary small cell malignant neoplasm of lung, stage 4 (HCC) TSH Routine 02/26/2025 8:10 AM CDT Primary adenocarcinoma of right lung (HCC) Primary cancer of right lower lobe of lung (HCC) Primary small cell malignant neoplasm of lung, stage 4 (HCC) T3, FREE Routine 02/26/2025 8:10 AM CDT Primary adenocarcinoma of right lung (HCC) Primary cancer of right lower lobe of lung (HCC) Primary small cell malignant neoplasm of lung, stage 4 (HCC) T4, FREE Routine 02/26/2025 8:10 AM CDT Primary adenocarcinoma of right lung (HCC) Primary cancer of right lower lobe of lung (HCC) Primary small cell malignant neoplasm of lung, stage 4 (HCC) PTH Routine 02/26/2025 8:10 AM CDT Primary adenocarcinoma of right lung (HCC) Primary cancer of right lower lobe of lung (HCC) Primary small cell malignant neoplasm of lung, stage 4 (HCC) MRI BRAIN W WO CONTRAST Schedule Routine, Read Routine (OP Routine) 02/21/2025 2:30 PM CDT Primary adenocarcinoma of right lung (HCC) Primary cancer of right lower lobe of lung (HCC) Primary small cell malignant neoplasm of lung, stage 4 (HCC) CT CHEST ABDOMEN PELVIS W CONTRAST Schedule Routine, Read Routine (OP Routine) 02/21/2025 1:32 PM CDT Primary adenocarcinoma of right lung (HCC) Primary cancer of right lower lobe of lung (HCC) Primary small cell malignant neoplasm of lung, stage 4 (HCC) EGFR STAT 02/18/2025 7:24 AM CDT Primary adenocarcinoma of right lung (HCC) Primary cancer of right lower lobe of lung (HCC) Primary small cell malignant neoplasm of lung, stage 4 (HCC) DIFFERENTIAL AUTO STAT 02/18/2025 7:2 4 AM CDT Primary adenocarcinoma of right lung (HCC) Primary cancer of right lower lobe of lung (HCC) Primary small cell malignant neoplasm of lung, stage 4 (HCC) CBC WITH AUTO DIFFERENTIAL STAT 02/18/2025 7:24 AM CDT Primary adenocarcinoma of right lung (HCC) Primary cancer of right lower lobe of lung (HCC) Primary small cell malignant neoplasm of lung, stage 4 (HCC) COMPREHENSIVE METABOLIC PANEL STAT 02/18/2025 7:24 AM CDT Primary adenocarcinoma of right lung (HCC) Primary cancer of right lower lobe of lung (HCC) Primary small cell malignant neoplasm of lung, stage 4 (HCC) PHOSPHORUS STAT 02/18/2025 7:24 AM CDT Primary adenocarcinoma of right lung (HCC) Primary cancer of right lower lobe of lung (HCC) Primary small cell malignant neoplasm of lung, stage 4 (HCC) MAGNESIUM STAT 02/18/2025 7:24 AM CDT Primary adenocarcinoma of right lung (HCC) Primary cancer of right lower lobe of lung (HCC) Primary small cell malignant neoplasm of lung, stage 4 (HCC) CREATINE KINASE (CK), TOTAL STAT 02/18/2025 7:24 AM CDT Primary adenocarcinoma of right lung (HCC) Primary cancer of right lower lobe of lung (HCC) Primary small cell malignant neoplasm of lung, stage 4 (HCC) BILIRUBIN, DIRECT Routine 02/18/2025 7:2 4 AM CDT Primary adenocarcinoma of right lung (HCC) Primary cancer of right lower lobe of lung (HCC) Primary small cell malignant neoplasm of lung, stage 4 (HCC) LACTATE DEHYDROGENASE Routine 02/18/2025 7:24 AM CDT Primary adenocarcinoma of right lung (HCC) Primary cancer of right lower lobe of lung (HCC) Primary small cell malignant neoplasm of lung, stage 4 (HCC) TSH Routine 02/18/2025 7:24 AM CDT Primary adenocarcinoma of right lung (HCC) Primary cancer of right lower lobe of lung (HCC) Primary small cell malignant neoplasm of lung, stage 4 (HCC) T3, FREE Routine 02/18/2025 7:24 AM CDT Primary adenocarcinoma of right lung (HCC) Primary cancer of right lower lobe of lung (HCC) Primary small cell malignant neoplasm of lung, stage 4 (HCC) T4, FREE Routine 02/18/2025 7:24 AM CDT Primary adenocarcinoma of right lung (HCC) Primary cancer of right lower lobe of lung (HCC) Primary small cell malignant neoplasm of lung, stage 4 (HCC) PTH Routine 02/18/2025 7:24 AM CDT Primary adenocarcinoma of right lung (HCC) Primary cancer of right lower lobe of lung (HCC) Primary small cell malignant neoplasm of lung, stage 4 (HCC) URINALYSIS, MICROSCOPIC ONLY STAT 02/18/2025 7:21 AM CDT Primary adenocarcinoma of right lung (HCC) Primary cancer of right lower lobe of lung (HCC) Primary small cell malignant neoplasm of lung, stage 4 (HCC) URINALYSIS AND REFLEX TO MICROSCOPIC AND CULTURE STAT 02/18/2025 7:21 AM CDT Primary adenocarcinoma of right lung (HCC) Primary cancer of right lower lobe of lung (HCC) Primary small cell malignant neoplasm of lung, stage 4 (HCC) EGFR STAT 02/04/2025 7:13 AM CDT Primary adenocarcinoma of right lung (HCC) Primary cancer of right lower lobe of lung (HCC) Primary small cell malignant neoplasm of lung, stage 4 (HCC) DIFFERENTIAL AUTO STAT 02/04/2025 7:1 3 AM CDT Primary adenocarcinoma of right lung (HCC) Primary cancer of right lower lobe of lung (HCC) Primary small cell malignant neoplasm of lung, stage 4 (HCC) CBC WITH AUTO DIFFERENTIAL STAT 02/04/2025 7:13 AM CDT Primary adenocarcinoma of right lung (HCC) Primary cancer of right lower lobe of lung (HCC) Primary small cell malignant neoplasm of lung, stage 4 (HCC) COMPREHENSIVE METABOLIC PANEL STAT 02/04/2025 7:13 AM CDT Primary adenocarcinoma of right lung (HCC) Primary cancer of right lower lobe of lung (HCC) Primary small cell malignant neoplasm of lung, stage 4 (HCC) PHOSPHORUS STAT 02/04/2025 7:13 AM CDT Primary adenocarcinoma of right lung (HCC) Primary cancer of right lower lobe of lung (HCC) Primary small cell malignant neoplasm of lung, stage 4 (HCC) MAGNESIUM STAT 02/04/2025 7:13 AM CDT Primary adenocarcinoma of right lung (HCC) Primary cancer of right lower lobe of lung (HCC) Primary small cell malignant neoplasm of lung, stage 4 (HCC) CREATINE KINASE (CK), TOTAL STAT 02/04/2025 7:13 AM CDT Primary adenocarcinoma of right lung (HCC) Primary cancer of right lower lobe of lung (HCC) Primary small cell malignant neoplasm of lung, stage 4 (HCC) BILIRUBIN, DIRECT Routine 02/04/2025 7:1 3 AM CDT Primary adenocarcinoma of right lung (HCC) Primary cancer of right lower lobe of lung (HCC) Primary small cell malignant neoplasm of lung, stage 4 (HCC) LACTATE DEHYDROGENASE Routine 02/04/2025 7:13 AM CDT Primary adenocarcinoma of right lung (HCC) Primary cancer of right lower lobe of lung (HCC) Primary small cell malignant neoplasm of lung, stage 4 (HCC) TSH Routine 02/04/2025 7:13 AM CDT Primary adenocarcinoma of right lung (HCC) Primary cancer of right lower lobe of lung (HCC) Primary small cell malignant neoplasm of lung, stage 4 (HCC) T3, FREE Routine 02/04/2025 7:13 AM CDT Primary adenocarcinoma of right lung (HCC) Primary cancer of right lower lobe of lung (HCC) Primary small cell malignant neoplasm of lung, stage 4 (HCC) T4, FREE Routine 02/04/2025 7:13 AM CDT Primary adenocarcinoma of right lung (HCC) Primary cancer of right lower lobe of lung (HCC) Primary small cell malignant neoplasm of lung, stage 4 (HCC) PTH Routine 02/04/2025 7:13 AM CDT Primary adenocarcinoma of right lung (HCC) Primary cancer of right lower lobe of lung (HCC) Primary small cell malignant neoplasm of lung, stage 4 (HCC) URINALYSIS, MICROSCOPIC ONLY STAT 02/04/2025 7:04 AM CDT Primary adenocarcinoma of right lung (HCC) Primary cancer of right lower lobe of lung (HCC) Primary small cell malignant neoplasm of lung, stage 4 (HCC) URINALYSIS AND REFLEX TO MICROSCOPIC AND CULTURE STAT 02/04/2025 7:04 AM CDT Primary adenocarcinoma of right lung (HCC) Primary cancer of right lower lobe of lung (HCC) Primary small cell malignant neoplasm of lung, stage 4 (HCC) HEPATITIS C ANTIBODY Routine 08/28/2024 11:20 AM MATTRESS FILLER Primary malignant neoplasm of right lower lobe of lung (HCC) HM COLONOSCOPY Routine 04/25/2020 from Last 3 Months or Most Recently Relevant to Health Maintenance Results * (ABNORMAL) Urinalysis reflex to microscopic and culture Urine (05/02/2025 7:47 AM MATTRESS FILLER) Color, ur Straw Yellow Clarity, ur Clear Clear [facility]ERNER [facility] Specific gravity, ur 1.011 1.003 - 1.030 [facility] pH, urine 6.5 [facility] Comment: Interpretive Data U rine pH is affected by diet, medications, systemic acid-base disturbances, and renal tubular function. pH may affect urinary stone formation. For example, urine pH below 6.0 may help reduce the tendency for calcium phosphate stones and pH greater than 6.0 may reduce the tendency for uric acid stone formation. Source: [facility] Current Interpretive Data was last revised on 2017 Protein, ur ql Negative Negative [facility] Glucose, ur ql Negative Negative [facility] Ketones, ur Negative Negative [facility] Bilirubin, ur Negative Negative [facility] Blood, ur 1+(A) Negative [facility] Urobilinogen, ur <2.0 <2.0 mg/dL [facility] Nitrite, ur Negative Negative [facility] Leukocyte esterase, ur Negative [facility] UA reflex comment Reflex to microscopic UA will be performed. [facility] Urine 05/02/2025 7:47 AM MATTRESS FILLER 05/02/2025 7:47 AM MATTRESS FILLER Virgen Huggins [facility] LAB MICROBIOLOGY - GENERAL ORDERABLES Final Result [facility] Department [place] [address] * Urinalysis, microscopic only (05/02/2025 7:47 AM MATTRESS FILLER) WBC, ur 0-5 0 - 5 /HPF RBC, ur 0-2 0 - 2 /HPF [facility] Epithelial cells, squamous, ur 1-5 0 - 5 /HPF [facility] Culture Reflex Comment Reflex conditions for urine culture (WBC >10) not met. [facility] Urine 05/02/2025 7:47 AM MATTRESS FILLER 05/02/2025 7:47 AM MATTRESS FILLER Virgen Huggins [facility] LAB URINE ORDERABLE S [facility] [place] [address] * eGFR (05/02/2025 7:21 AM MATTRESS FILLER) eGFR 89 >=60 mL/min/1. 73 m2 Comment: Interpretive Data Reference Interval Normal >/= 90 mL/min/1.73m2 Mildly decreased* 60 - 89 mL/min/1.73m2 Mildly to moderately decreased 45 - 59 mL/min/1.73m2 Moderately to severely decreased 30 - 44 mL/min/1.73m2 Severely decreased 15 - 29 mL/min/1.73m2 Kidney Failure < 15 mL/min/1.73m2 *Relative to young adult level Estimated glomerular filtration rate is determined by the 2020 CKD-EPI equation recommended by the National Kidney Foundation (A Unifying Approach to GFR Estimation: Recommendations of the NKF-ASK Task Force on Reassessing the Inclusion of Race in Diagnosing Kidney Disease, JASN 2020). The CKD-EPI equation should not be used for patients with unstable renal function and has not been validated in children and those over 70. Current interpretive data was last reviewed 2021. Blood 05/02/2025 7:21 AM MATTRESS FILLER 05/02/2025 7:24 AM MATTRESS FILLER us Virgen Huggins [facility] LAB BLOOD ORDERABLE S Final [facility] [place] [address] * Differential, auto (05/02/2025 7:21 AM MATTRESS FILLER) Pathologist [facility] Neutrophil abs 1.84 1.50 - 6.50 K/cumm Comment:Testing performed by : [facility], [address] [place] [phone] Lymphocyte abs 1.16 0.80 - 3.30 K/cumm CLAIR [facility] Comment:Testing performed by : [facility], [address] [place] [phone] Monocyte abs 0.40 0.20 - 0.80 K/cumm [facility] Comment:Testing performed by : [facility], [address] [place] [phone] Eosinophil abs 0.17 0.00 - 0.50 K/cumm [facility] Comment:Testing performed by : [facility], [address] [place] [phone] Basophil abs 0.02 0.00 - 0.10 K/cumm [facility] Comment:Testing performed by : [facility], [address] [place] [phone] Neutrophil pct 51.2 % [facility] Comment: Interpretive Data Percent cell count reference ranges are not reported, since discordance with absolute values may lead to misinterpretation of CBC data. Current Interpretive Data was last revised on 2017. Testing performed by: [facility], [address] [place] [phone] Lymphocyte pct 32.2 % [facility] Comment: Interpretive Data Percent cell count reference ranges are not reported, since discordance with absolute values may lead to misinterpretation of CBC data. Current Interpretive Data was last revised on 2017. Testing performed by: [facility], [address] [place] [phone] Monocyte pct 11.2 % [facility] Comment: Interpretive Data Percent cell count reference ranges are not reported, since discordance with absolute values may lead to misinterpretation of CBC data. Current Interpretive Data was last revised on 2017. Testing performed by: [facility], [address] [place] [phone] Eosinophil pct 4.8 % [facility] Comment: Interpretive Data Percent cell count reference ranges are not reported, since discordance with absolute values may lead to misinterpretation of CBC data. Current Interpretive Data was last revised on 2017. Testing performed by: [facility], [address] [place] [phone] Basophil pct 0.6 % [facility] Comment: Interpretive Data Percent cell count reference ranges are not reported, since discordance with absolute values may lead to misinterpretation of CBC data. Current Interpretive Data was last revised on 2017. Testing performed by: [facility], [address] [place] [address] Blood 05/02/2025 7:21 AM MATTRESS FILLER 05/02/2025 7:23 AM MATTRESS FILLER us Virgen Gunter Joseluis DNP LAB BLOOD ORDERABLE S Final Result [facility] Department [place] [address] * (ABNORMAL) CBC with auto differential (05/02/2025 7:21 AM MATTRESS FILLER) WBC 3.59(L) 3.80 - 9.90 K/cumm Comment:Testing performed by : [facility], [address] [place] [address] Hgb 12.5 11.9 - 15.5 g/dL [facility] Comment:Testing performed by : [facility], [address] [place] [address] Hct 38.1 35.6 - 45.5 % [facility] Comment:Testing performed by : [facility], [address] [place] [address] Plt 223 150 - 400 K/cumm C[facility]ASH [facility] Comment:Testing performed by : [facility], [address] [place] [address] MPV 6.7(L) 6.8 - 10.4 fL [facility] Comment:Testing performed by : [facility], [address] [place] [address] RBC 4.43 3.90 - 5.20 M/cumm [facility] Comment:Testing performed by : [facility], [address] [place] [address] MCV 86.0 81.3 - 96.4 fL [facility] Comment:Testing performed by : [facility], [address] [place] [address] MCH 28.2 27.1 - 33.[address] [facility] Comment:Testing performed by : [facility], [address] [place] [phone] MCHC 32.8 32.3 - 35.7 g/dL [facility] Comment:Testing performed by : [facility], [address] [place] [phone] RDW CV 14.9 11.1 - 14.9 % CLAIR [facility] Comment:Testing performed by : [facility], [address] [place] [phone] NRBC abs 0.00 0.00 - 0.01 K/cumm [facility] Comment:Testing performed by : [facility], [address] [place] [phone] Blood 05/02/2025 7:21 AM MATTRESS FILLER 05/02/2025 7:23 AM MATTRESS FILLER Virgen Huggins [facility] LAB BLOOD ORDERABLE S Final Result [facility] [place] [address] * T3, free (05/02/2025 7:21 AM MATTRESS FILLER) Free T3 2.3 2.0 - 4.4 pg/mL Blood 05/02/2025 7:21 AM MATTRESS FILLER 05/02/2025 7:24 AM MATTRESS FILLER Virgen Huggins [facility] LAB BLOOD ORDERABLE S Final Result [facility] [place] [address] * TSH (05/02/2025 7:21 AM MATTRESS FILLER) Thyroid Stimulating Hormone 1.91 0.30 - 4.20 mcIUnit/mL Blood 05/02/2025 7:21 AM MATTRESS FILLER 05/02/2025 7:24 AM MATTRESS FILLER Virgen Huggins DNP LAB BLOOD ORDERABLE S Final Result Performing Organization Address City/[facility] Co de Phone Number [facility] [place] [address] * T4, free (05/02/2025 7:21 AM MATTRESS FILLER) Free T4 1.14 0.90 - 1.70 ng/dL Blood 05/02/2025 7:21 AM MATTRESS FILLER 05/02/2025 7:24 AM MATTRESS FILLER us Virgen Huggins DNP LAB BLOOD ORDERABLE S Final Result Performing Organization Address [facility] Co de Phone Number [facility] [place] [address] * Phosphorus (05/02/2025 7:21 AM MATTRESS FILLER) Phosphorus, pl 3.4 2.3 - 4.5 mg/dL Blood 05/02/2025 7:21 AM MATTRESS FILLER 05/02/2025 7:24 AM MATTRESS FILLER Virgen Huggins DNP LAB BLOOD ORDERABLE S Final Result Performing Organization Address [facility] Co de Phone Number [facility] Department [place] [address] * (ABNORMAL) PTH (05/02/2025 7:21 AM MATTRESS FILLER) PTH 75(H) 18 - 59 pg/mL Blood 05/02/2025 7:21 AM MATTRESS FILLER 05/02/2025 8:24 AM MATTRESS FILLER Virgen Huggins DNP LAB BLOOD ORDERABLE S Final Result Performing Organization Address City/[facility] Co de Phone Number [facility] [place] [address] * Magnesium (05/02/2025 7:21 AM MATTRESS FILLER) Pathologist [facility] Magnesium 1.8 1.4 - 2.5 mg/dL Blood 05/02/2025 7:21 AM MATTRESS FILLER 05/02/2025 7:24 AM MATTRESS FILLER Virgen Huggins [facility] LAB BLOOD ORDERABLE S Final Result Performing Organization Address City/[facility] [place] [address] * Lactate dehydrogenase (LD) (05/02/2025 7:21 AM MATTRESS FILLER) Pathologist [facility] Lactate dehydrogenase (LDH) 206 100 - 250 Units/L Blood 05/02/2025 7:21 AM MATTRESS FILLER 05/02/2025 7:24 AM MATTRESS FILLER Virgen Huggins [facility] LAB BLOOD ORDERABLE S Final Result Performing Organization Address City/[facility] [place] [address] * Creatine kinase (CK), total (05/02/2025 7:21 AM MATTRESS FILLER) Pathologist [facility] CK 87 30 - 200 Units/L Blood 05/02/2025 7:21 AM MATTRESS FILLER 05/02/2025 7:24 AM MATTRESS FILLER Virgen Huggins [facility] LAB BLOOD ORDERABLE S Final Result Performing Organization Address City/[facility] [place] [address] * Bilirubin, direct (05/02/2025 7:21 AM MATTRESS FILLER) Pathologist [facility] Bilirubin, direct 0.2 0.1 - 0.3 mg/dL Blood 05/02/2025 7:21 AM MATTRESS FILLER 05/02/2025 7:24 AM MATTRESS FILLER us Virgen Gunter Francisvikram [facility] LAB BLOOD ORDERABLE S Final Result [facility] Department [place] [address] * (ABNORMAL) Comprehensive metabolic panel (05/02/2025 7:21 AM MATTRESS FILLER) Sodium 140 135 - 145 mmol/L Potassium, pl 3.8 3.3 - 4.9 mmol/L [facility] Chloride 108 97 - 110 mmol/L [facility] CO2 24 22 - 32 mmol/L [facility] Anion gap 8 2 - 15 mmol/L [facility] BUN 10 6 - 25 mg/dL [facility] Creatinine 0.76 0.60 - 1.10 mg/dL [facility] Glucose 94 70 - 199 mg/dL [facility] Comment: Interpretive Data Fasting glucose >/= 126 mg/dl is diagnostic for diabetes. Fasting is defined as no caloric intake for at least 8 hours. Fasting glucose between 100 mg/dl to 125 mg/dl is diagnostic of prediabetes. In a patient with classic symptoms of hyperglycemia or hyperglycemic crisis, a random glucose >/= 200 mg/dl is diagnostic for diabetes. In the absence of unequivocal hyperglycemia, results should be confirmed by repeat testing. The classification and Diagnosis of Diabetes Diabetes Care 202; 46: S19-S40. Current interpretive data was last revised 2022. Calcium 8.5 8.5 - 10.3 mg/dL [facility] Bilirubin, total 0.5 0.1 - 1.2 mg/dL [facility] Protein, pl 6.5 6.5 - 8.5 g/dL [facility] Albumin 3.6 3.5 - 5.0 g/dL [facility] Alk phos 152(H) 40 - 130 Units/L [facility] ALT 18 7 - 45 Units/L [facility] AST 25 10 - 45 Units/L [facility] Blood 05/02/2025 7:21 AM MATTRESS FILLER 05/02/2025 7:24 AM MATTRESS FILLER us Virgen Huggins DNP LAB BLOOD ORDERABLE S Final Result Performing Organization Address City/[facility]/ZIP Co de Phone Number [facility] Department [place] [address] * (ABNORMAL) Urinalysis reflex to microscopic and culture Urine (04/24/2025 8:41 AM CDT) Color, ur Straw Yellow Clarity, ur Clear Clear [facility] Specific gravity, ur 1.012 1.003 - 1.030 [facility] pH, urine 6.5 [facility] Comment: Interpretive Data U rine pH is affected by diet, medications, systemic acid-base disturbances, and renal tubular function. pH may affect urinary stone formation. For example, urine pH below 6.0 may help reduce the tendency for calcium phosphate stones and pH greater than 6.0 may reduce the tendency for uric acid stone formation. Source: [facility] Current Interpretive Data was last revised on 2017 Protein, ur ql Trace Negative [facility] Glucose, ur ql Negative Negative [facility] Ketones, ur Negative Negative [facility] Bilirubin, ur Negative Negative [facility] Blood, ur 1+(A) Negative [facility] Urobilinogen, ur <2.0 <2.0 mg/dL [facility] Nitrite, ur Negative Negative [facility] Leukocyte esterase, ur Negative [facility] UA reflex comment Reflex to microscopic UA will be performed. [facility] Urine 04/24/2025 8:41 AM CDT 04/24/2025 8:41 AM CDT us Linda Taylor [facility]EARCH CENTER DIRECTOR LAB MICROBIOLOGY - GENERA L ORDERABLES Final Result [facility] [place] [address] * (ABNORMAL) Urinalysis, microscopic only (04/24/2025 8:41 AM CDT) WBC, ur 0-5 0 - 5 /HPF RBC, ur 3-5(A) 0 - 2 /HPF [facility] Epithelial cells, squamous, ur 1-5 0 - 5 /HPF [facility] Calcium oxalate crystals, ur Trace(A) [facility] Culture Reflex Comment Reflex conditions for urine culture (WBC >10) not met. [facility] Urine 04/24/2025 8:41 AM CDT 04/24/2025 8:41 AM CDT Linda Taylor RESE[facility] CENTER DIRECTOR LAB URINE ORDERABLES Rosa Maria l Result [facility] Department [place] [address] * eGFR (04/24/2025 8:18 AM CDT) eGFR 86 >=60 mL/min/1. 73 m2 Comment: Interpretive Data Reference Interval Normal >/= 90 mL/min/1.73m2 Mildly decreased* 60 - 89 mL/min/1.73m2 Mildly to moderately decreased 45 - 59 mL/min/1.73m2 Moderately to severely decreased 30 - 44 mL/min/1.73m2 Severely decreased 15 - 29 mL/min/1.73m2 Kidney Failure < 15 mL/min/1.73m2 *Relative to young adult level Estimated glomerular filtration rate is determined by the 2020 CKD-EPI equation recommended by the National Kidney Foundation (A Unifying Approach to GFR Estimation: Recommendations of the NKF-ASK Task Force on Reassessing the Inclusion of Race in Diagnosing Kidney Disease, JASN 2020). The CKD-EPI equation should not be used for patients with unstable renal function and has not been validated in children and those over 70. Current interpretive data was last reviewed 2021. Blood 04/24/2025 8:18 AM CDT 04/24/2025 8:25 AM CDT Linda Taylor RESE[facility] CENTER DIRECTOR LAB BLOOD ORDERABLES Rosa Maria l Result [facility] [place] [address] * Differential, auto (04/24/2025 8:18 AM CDT) Neutrophil abs 2.95 1.50 - 6.50 K/cumm Comment:Testing performed by : [facility], [address] [place] [phone] Lymphocyte abs 1.48 0.80 - 3.30 K/cumm [facility] Comment:Testing performed by : [facility], [address] [place] [phone] Monocyte abs 0.43 0.20 - 0.80 K/cumm [facility]ERNER [facility] Comment:Testing performed by : [facility], [address] [place], [place] [phone] Eosinophil abs 0.17 0.00 - 0.50 K/cumm [facility]ER [facility] Comment:Testing performed by : [facility], [address] [place] [phone] Basophil abs 0.03 0.00 - 0.10 K/cumm [facility] Comment:Testing performed by : [facility], [address] [place] [phone] Neutrophil pct 58.4 % CERNER [facility] Comment: Interpretive Data Percent cell count reference ranges are not reported, since discordance with absolute values may lead to misinterpretation of CBC data. Current Interpretive Data was last revised on 2017. Testing performed by: [facility], [address] [place] [phone] Lymphocyte pct 29.2 % CERNER BJ Comment: Interpretive Data Percent cell count reference ranges are not reported, since discordance with absolute values may lead to misinterpretation of CBC data. Current Interpretive Data was last revised on 2017. Testing performed by: [facility], [address] [place] [phone] Monocyte pct 8.5 % CERNER BJ Comment: Interpretive Data Percent cell count reference ranges are not reported, since discordance with absolute values may lead to misinterpretation of CBC data. Current Interpretive Data was last revised on 2017. Testing performed by: [facility], [address] [place] [phone] Eosinophil pct 3.4 % CLAIR LAYNE Comment: Interpretive Data Percent cell count reference ranges are not reported, since discordance with absolute values may lead to misinterpretation of CBC data. Current Interpretive Data was last revised on 2017. Testing performed by: [facility], [address] [place] [address] Basophil pct 0.6 % CLAIR LAYNE Comment: Interpretive Data Percent cell count reference ranges are not reported, since discordance with absolute values may lead to misinterpretation of CBC data. Current Interpretive Data was last revised on 2017. Testing performed by: [facility], [address] [place] [address] Blood 04/24/2025 8:18 AM CDT 04/24/2025 8:26 AM CDT us Linda Taylor RESEARCH CENTER DIRECTOR LAB BLOOD ORDERABLES Rosa Maria dwyer Result CLAIR LAYNE [facility] Department [place] [address] * (ABNORMAL) CBC with auto differential (04/24/2025 8:18 AM CDT) WBC 5.06 3.80 - 9.90 K/cumm Comment:Testing performed by : [facility], [address] [place] [address] Hgb 12.7 11.9 - 15.5 g/dL CLAIR LAYNE Comment:Testing performed by : [facility], [address] [place] [address] Hct 38.7 35.6 - 45.5 % CLAIR LAYNE Comment:Testing performed by : [facility], [address] [place] [address] Plt 254 150 - 400 K/cumm CLAIR LAYNE Comment:Testing performed by : [facility], [address] [place], [place] [phone] MPV 6.9 6.8 - 10.4 fL CERKAILASH LAYNE Comment:Testing performed by : [facility], [address] [place], [place] [phone] RBC 4.50 3.90 - 5.20 M/cumm CERKAILASH BJ Comment:Testing performed by : [facility], [address] [place], [place] [phone] MCV 85.9 81.3 - 96.4 fL CLAIR BJ Comment:Testing performed by : [facility], [address] [place], [place] [phone] MCH 28.2 27.1 - 33.[address] [facility] Comment:Testing performed by : [facility], [address] [place], [place] [phone] MCHC 32.8 32.3 - 35.7 g/dL CLAIR [facility] Comment:Testing performed by : [facility], [address] [place], [place] [phone] RDW CV 15.0(H) 11.1 - 14.9 % CLAIR [facility] Comment:Testing performed by : [facility], [address] [place], [place] [phone] NRBC abs 0.00 0.00 - 0.01 K/cumm CLAIR [facility] Comment:Testing performed by : [facility], [address] [place], [place] [phone] Blood 04/24/2025 8:18 AM CDT 04/24/2025 8:26 AM CDT us Linda Taylor RESEARCH CENTER DIRECTOR LAB BLOOD ORDERABLES Rosa Maria dwyer Result CLAIR [facility] Department [place] [address] * T3, free (04/24/2025 8:18 AM CDT) Free T3 2.6 2.0 - 4.4 pg/mL Blood 04/24/2025 8:18 AM CDT 04/24/2025 8:25 AM CDT Linda Taylor RESEARCH CENTER DIRECTOR LAB BLOOD ORDERABLES Rosa Maria l Result Performing Organization Address [facility] Co de Phone Number [facility] [place] [employer] [place] [address] * TSH (04/24/2025 8:18 AM CDT) Thyroid Stimulating Hormone 2.51 0.30 - 4.20 mcIUnit/mL Blood 04/24/2025 8:18 AM CDT 04/24/2025 8:25 AM CDT Linda Taylor RESEARCH CENTER DIRECTOR LAB BLOOD ORDERABLES Rosa Maria l Result Performing Organization Address [facility] de Phone Number [facility] [place] [address] * T4, free (04/24/2025 8:18 AM CDT) Pathologist [facility] Free T4 1.12 0.90 - 1.70 ng/dL Blood 04/24/2025 8:18 AM CDT 04/24/2025 8:25 AM CDT Linda Taylor RESEARCH CENTER DIRECTOR LAB BLOOD ORDERABLES Rosa Maria l Result Performing Organization Address City/[facility] de Phone Number [facility] [place] [address] * Phosphorus (04/24/2025 8:18 AM CDT) Phosphorus, pl 3.4 2.3 - 4.5 mg/dL Blood 04/24/2025 8:18 AM CDT 04/24/2025 8:25 AM CDT Linda Taylor RESEARCH CENTER DIRECTOR LAB BLOOD ORDERABLES Rosa Maria l Result Performing Organization Address City/[facility] Co de Phone Number [facility] Department [place] [address] * (ABNORMAL) PTH (04/24/2025 8:18 AM CDT) PTH 102(H) 18 - 59 pg/mL Blood 04/24/2025 8:1 8 AM CDT 04/24/2025 9:43 AM CDT Linda Taylor RESEARCH CENTER DIRECTOR LAB BLOOD ORDERABLES Rosa Maria l Result Performing Organization Address [facility] de Phone Number [facility] [place] [address] * Magnesium (04/24/2025 8:18 AM CDT) Magnesium 1.8 1.4 - 2.5 mg/dL Blood 04/24/2025 8:18 AM CDT 04/24/2025 8:25 AM CDT Linda Taylor RESEARCH CENTER DIRECTOR LAB BLOOD ORDERABLES Rosa Maria l Result Performing Organization Address [facility] Co de Phone Number [facility] Department [place] [address] * Lactate dehydrogenase (LD) (04/24/2025 8:18 AM CDT) Lactate dehydrogenase (LDH) 206 100 - 250 Units/L Blood 04/24/2025 8:18 AM CDT 04/24/2025 8:25 AM CDT Linda Taylor RESEARCH CENTER DIRECTOR LAB BLOOD ORDERABLES Rosa Maria l Result Performing Organization Address City/[facility] Co de Phone Number [facility] [place] [address] * Creatine kinase (CK), total (04/24/2025 8:18 AM CDT) [facility] CK 92 30 - 200 Units/L Blood 04/24/2025 8:18 AM CDT 04/24/2025 8:25 AM CDT Linda Taylor RESEARCH CENTER DIRECTOR LAB BLOOD ORDERABLES Rosa Maria l Result [facility] [place] [address] * Bilirubin, direct (04/24/2025 8:18 AM CDT) [facility] Bilirubin, direct 0.2 0.1 - 0.3 mg/dL Blood 04/24/2025 8:18 AM CDT 04/24/2025 8:25 AM CDT Linda Taylor RESEARCH CENTER DIRECTOR LAB BLOOD ORDERABLES Rosa Maria l Result Performing Organization Address City/[facility] de Phone Number [facility] Department [place] [address] * (ABNORMAL) Comprehensive metabolic panel (04/24/2025 8:18 AM CDT) [facility] Sodium 139 135 - 145 mmol/L Potassium, pl 3.8 3.3 - 4.9 mmol/L [facility] Chloride 104 97 - 110 mmol/L [facility] CO2 25 22 - 32 mmol/L [facility] Anion gap 10 2 - 15 mmol/L [facility] BUN 12 6 - 25 mg/dL [facility] Creatinine 0.78 0.60 - 1.10 mg/dL [facility] Glucose 114 70 - 199 mg/dL [facility] Comment: Interpretive Data Fasting glucose >/= 126 mg/dl is diagnostic for diabetes. Fasting is defined as no caloric intake for at least 8 hours. Fasting glucose between 100 mg/dl to 125 mg/dl is diagnostic of prediabetes. In a patient with classic symptoms of hyperglycemia or hyperglycemic crisis, a random glucose >/= 200 mg/dl is diagnostic for diabetes. In the absence of unequivocal hyperglycemia, results should be confirmed by repeat testing. The classification and Diagnosis of Diabetes Diabetes Care 2021; 46: S19-S40. Current interpretive data was last revised 2022. Calcium 8.5 8.5 - 10.3 mg/dL CERNER [facility] Bilirubin, total 0.7 0.1 - 1.2 mg/dL CERNER [facility] Protein, pl 6.6 6.5 - 8.5 g/dL CERNER BJ Albumin 3.7 3.5 - 5.0 g/dL CERNER [facility] Alk phos 164(H) 40 - 130 Units/L CERNER BJ ALT 19 7 - 45 Units/L CERNER BJ AST 24 10 - 45 Units/L [facility] Blood 04/24/2025 8:18 AM CDT 04/24/2025 8:25 AM CDT us Linda Taylor RESEARCH CENTER DIRECTOR LAB BLOOD ORDERABLES Rosa Maria dwyer Result [facility] Department [place] [address] * (ABNORMAL) Urinalysis reflex to microscopic and culture Urine (04/10/2025 9:40 AM CDT) Color, ur Straw Yellow Clarity, ur Clear Clear CERNER [facility] Specific gravity, ur 1.006 1.003 - 1.030 [facility] pH, urine 6.5 [facility] Comment: Interpretive Data U rine pH is affected by diet, medications, systemic acid-base disturbances, and renal tubular function. pH may affect urinary stone formation. For example, urine pH below 6.0 may help reduce the tendency for calcium phosphate stones and pH greater than 6.0 may reduce the tendency for uric acid stone formation. Source: [facility] [place] [employer] Current Interpretive Data was last revised on 2017 Protein, ur ql Negative Negative CERNER [facility] Glucose, ur ql Negative Negative CERNER BJ Ketones, ur Negative Negative [facility]ER [facility] Bilirubin, ur Negative Negative [facility] Blood, ur Trace(A) Negative [facility] Urobilinogen, ur <2.0 <2.0 mg/dL [facility] Nitrite, ur Negative Negative [facility] Leukocyte esterase, ur Negative [facility] UA reflex comment Reflex to microscopic UA will be performed. [facility] Urine 04/10/2025 9:40 AM CDT 04/10/2025 9:46 AM CDT us Linda Taylor RESEARCH CENTER DIRECTOR LAB MICROBIOLOGY - GENERA L ORDERABLES Final Result Performing Organization Address City/[facility]/ZIP Co de Phone Number [facility] Department [place] [address] * Urinalysis, microscopic only (04/10/2025 9:40 AM CDT) WBC, ur 0-5 0 - 5 /HPF RBC, ur 0-2 0 - 2 /HPF [facility] Culture Reflex Comment Reflex conditions for urine culture (WBC >10) not met. [facility] Urine 04/10/2025 9:40 AM CDT 04/10/2025 9:46 AM CDT us Linda Taylor RESEARCH CENTER DIRECTOR LAB URINE ORDERABLES Rosa Maria l Result [facility] Department [place] [address] * eGFR (04/10/2025 8:48 AM CDT) eGFR 75 >=60 mL/min/1. 73 m2 Comment: Interpretive Data Reference Interval Normal >/= 90 mL/min/1.73m2 Mildly decreased* 60 - 89 mL/min/1.73m2 Mildly to moderately decreased 45 - 59 mL/min/1.73m2 Moderately to severely decreased 30 - 44 mL/min/1.73m2 Severely decreased 15 - 29 mL/min/1.73m2 Kidney Failure < 15 mL/min/1.73m2 *Relative to young adult level Estimated glomerular filtration rate is determined by the 2020 CKD-EPI equation recommended by the National [employer] (A Unifying Approach to GFR Estimation: Recommendations of the NKF-ASK Task Force on Reassessing the Inclusion of Race in Diagnosing Kidney Disease, JASN 2020). The CKD-EPI equation should not be used for patients with unstable renal function and has not been validated in children and those over 70. Current interpretive data was last reviewed 2021. Blood 04/10/2025 8:48 AM CDT 04/10/2025 8:57 AM CDT Linda Taylor RESEARCH CENTER DIRECTOR LAB BLOOD ORDERABLES Rosa Maria l Result Performing Organization Address City/[facility] Co de Phone Number [facility] Department [place] [address] * T3, free (04/10/2025 8:48 AM CDT) Free T3 2.6 2.0 - 4.4 pg/mL Blood 04/10/2025 8:48 AM CDT 04/10/2025 8:57 AM CDT Linda Taylor RESEARCH CENTER DIRECTOR LAB BLOOD ORDERABLES Rosa Maria l Result Performing Organization Address [facility] Co de Phone Number [facility] Department [place] [address] * TSH (04/10/2025 8:48 AM CDT) Thyroid Stimulating Hormone 3.10 0.30 - 4.20 mcIUnit/mL Blood 04/10/2025 8:48 AM CDT 04/10/2025 8:57 AM CDT Linda Taylor RESEARCH CENTER DIRECTOR LAB BLOOD ORDERABLES Rosa Maria l Result Performing Organization Address City/[facility] Co de Phone Number CERNER [facility] [place] [address] * T4, free (04/10/2025 8:48 AM CDT) [facility] Free T4 1.07 0.90 - 1.70 ng/dL Blood 04/10/2025 8:48 AM CDT 04/10/2025 8:57 AM CDT Linda Taylor RESEARCH CENTER DIRECTOR LAB BLOOD ORDERABLES [place] [address] * Phosphorus (04/10/2025 8:48 AM CDT) [facility] Phosphorus, pl 3.8 2.3 - 4.5 mg/dL Blood 04/10/2025 8:48 AM CDT 04/10/2025 8:57 AM CDT Linda Taylor RESEARCH CENTER DIRECTOR LAB BLOOD ORDERABLES Rosa Maria l Result Performing Organization Address City/[facility] [place] [address] * (ABNORMAL) PTH (04/10/2025 8:48 AM CDT) [facility] PTH 98(H) 18 - 59 pg/mL Blood 04/10/2025 8:48 AM CDT 04/10/2025 9:23 AM CDT Linda Taylor RESEARCH CENTER DIRECTOR LAB BLOOD ORDERABLES Rosa Maria l Result [facility] [place] [address] * Magnesium (04/10/2025 8:48 AM CDT) Magnesium 1.9 1.4 - 2.5 mg/dL Blood 04/10/2025 8:48 AM CDT 04/10/2025 8:57 AM CDT Linda Taylor RESEARCH CENTER DIRECTOR LAB BLOOD ORDERABLES Rosa Maria l Result Performing Organization Address [facility] Co de Phone Number [facility] [place] [address] * Lactate dehydrogenase (LD) (04/10/2025 8:48 AM CDT) Pathologist [facility] Lactate dehydrogenase (LDH) 187 100 - 250 Units/L Blood 04/10/2025 8:48 AM CDT 04/10/2025 8:57 AM CDT Linda Taylor RESEARCH CENTER DIRECTOR LAB BLOOD ORDERABLES Rosa Maria l Result Performing Organization Address [facility] Co de Phone Number [facility] Department of [place] [address] * Creatine kinase (CK), total (04/10/2025 8:48 AM CDT) Pathologist [facility] CK 95 30 - 200 Units/L Blood 04/10/2025 8:48 AM CDT 04/10/2025 8:57 AM CDT Linda Taylor RESEARCH CENTER DIRECTOR LAB BLOOD ORDERABLES Rosa Maria l Result Performing Organization Address City/[facility] Co de Phone Number [facility] [place] [address] * Bilirubin, direct (04/10/2025 8:48 AM CDT) Pathologist [facility] Bilirubin, direct 0.2 0.1 - 0.3 mg/dL Blood 04/10/2025 8:48 AM CDT 04/10/2025 8:57 AM CDT Linda Taylor RESEARCH CENTER DIRECTOR LAB BLOOD ORDERABLES Rosa Maria dwyer Result [facility] Department [place] [address] * (ABNORMAL) Comprehensive metabolic panel (04/10/2025 8:48 AM CDT) Sodium 139 135 - 145 mmol/L Potassium, pl 3.7 3.3 - 4.9 mmol/L [facility] Chloride 106 97 - 110 mmol/L CERNER [facility] CO2 26 22 - 32 mmol/L CERNER [facility] Anion gap 7 2 - 15 mmol/L [facility] BUN 18 6 - 25 mg/dL [facility] Creatinine 0.88 0.60 - 1.10 mg/dL [facility] Glucose 90 70 - 199 mg/dL [facility] Comment: Interpretive Data Fasting glucose >/= 126 mg/dl is diagnostic for diabetes. Fasting is defined as no caloric intake for at least 8 hours. Fasting glucose between 100 mg/dl to 125 mg/dl is diagnostic of prediabetes. In a patient with classic symptoms of hyperglycemia or hyperglycemic crisis, a random glucose >/= 200 mg/dl is diagnostic for diabetes. In the absence of unequivocal hyperglycemia, results should be confirmed by repeat testing. The classification and Diagnosis of Diabetes Diabetes Care 202; 46: S19-S40. Current interpretive data was last revised 2022. Calcium 8.6 8.5 - 10.3 mg/dL CERNER [facility] Bilirubin, total 0.6 0.1 - 1.2 mg/dL [facility] Protein, pl 6.5 6.5 - 8.5 g/dL [facility] Albumin 3.6 3.5 - 5.0 g/dL [facility] Alk phos 156(H) 40 - 130 Units/L CERNER BJ ALT 21 7 - 45 Units/L CERNER [facility]J AST 23 10 - 45 Units/L [facility] Blood 04/10/2025 8:48 AM CDT 04/10/2025 8:57 AM CDT Linda Taylor RESEARCH CENTER DIRECTOR LAB BLOOD ORDERABLES Rosa Maria dwyer Result CLAIR [facility] Department [place] [address] * Differential, auto (04/10/2025 8:45 AM CDT) Neutrophil abs 3.22 1.50 - 6.50 K/cumm Comment:Testing performed by : [facility], [address] [place] [phone] Lymphocyte abs 1.36 0.80 - 3.30 K/cumm CERKAILASH LAYNE Comment:Testing performed by : [facility], [address] [place], [place] [phone] Monocyte abs 0.41 0.20 - 0.80 K/cumm CERKAILASH LAYNE Comment:Testing performed by : [facility], [address] [place] [phone] Eosinophil abs 0.16 0.00 - 0.50 K/cumm CERKAILASH LAYNE Comment:Testing performed by : [facility], [address] [place] [phone] Basophil abs 0.02 0.00 - 0.10 K/cumm CERNER BJ Comment:Testing performed by : [facility], [address] [place] [phone] Neutrophil pct 62.4 % CERNER BJ Comment: Interpretive Data Percent cell count reference ranges are not reported, since discordance with absolute values may lead to misinterpretation of CBC data. Current Interpretive Data was last revised on 2017. Testing performed by: [facility], [address] [place] [phone] Lymphocyte pct 26.3 % CERNER BJ Comment: Interpretive Data Percent cell count reference ranges are not reported, since discordance with absolute values may lead to misinterpretation of CBC data. Current Interpretive Data was last revised on 2017. Testing performed by: [facility], [address] [place] [phone] Monocyte pct 7.9 % CERNER BJ Comment: Interpretive Data Percent cell count reference ranges are not reported, since discordance with absolute values may lead to misinterpretation of CBC data. Current Interpretive Data was last revised on 2017. Testing performed by: [facility], [address] [place] [phone] Eosinophil pct 3.0 % CLAIR BUSTOS Comment: Interpretive Data Percent cell count reference ranges are not reported, since discordance with absolute values may lead to misinterpretation of CBC data. Current Interpretive Data was last revised on 2017. Testing performed by: [facility], [address] [place] [address] Basophil pct 0.4 % CLAIR LAYNE Comment: Interpretive Data Percent cell count reference ranges are not reported, since discordance with absolute values may lead to misinterpretation of CBC data. Current Interpretive Data was last revised on 2017. Testing performed by: [facility], [address] [place] [address] Blood 04/10/2025 8:45 AM CDT 04/10/2025 8:56 AM CDT us Linda Taylor RESEARCH CENTER DIRECTOR LAB BLOOD ORDERABLES Rosa Maria dwyer Result CLAIR BUSTOS [facility] Department [place] [address] * (ABNORMAL) CBC with auto differential (04/10/2025 8:45 AM CDT) WBC 5.17 3.80 - 9.90 K/cumm Comment:Testing performed by : [facility], [address] [place] [address] Hgb 12.5 11.9 - 15.5 g/dL CLAIR BUSTOS Comment:Testing performed by : [facility], [address] [place] [address] Hct 37.0 35.6 - 45.5 % CLAIR BUSTOS Comment:Testing performed by : [facility], [address] [place] [address] Plt 229 150 - 400 K/cumm CERNER BJ Comment:Testing performed by : [facility], [address] [place] [address] MPV 6.9 6.8 - 10.4 fL CERNER BJ Comment:Testing performed by : [facility], [address] [place] [address] RBC 4.40 3.90 - 5.20 M/cumm CERKAILASH BJ Comment:Testing performed by : [facility], [address] [place] [address] MCV 84.1 81.3 - 96.4 fL CERKAILASH BJ Comment:Testing performed by : [facility], [address] [place] [address] MCH 28.5 27.1 - 33.3 pg [address] [facility] Comment:Testing performed by : [facility], [address] [place] [address] MCHC 33.9 32.3 - 35.7 g/dL CERKAILASH [facility] Comment:Testing performed by : [facility], [address] [place] [address] RDW CV 15.1(H) 11.1 - 14.9 % [facility] Comment:Testing performed by : [facility] [facility], [address] [place] [address] NRBC abs 0.00 0.00 - 0.01 K/cumm CERKAILASH [facility] Comment:Testing performed by : [facility], [address] [place] [address] Blood 04/10/2025 8:45 AM CDT 04/10/2025 8:56 AM CDT us Linda Taylor RESEARCH CENTER DIRECTOR LAB BLOOD ORDERABLES Rosa Maria dwyer Result [facility] Department [place] [address] * (ABNORMAL) Urinalysis reflex to microscopic and culture Urine (04/03/2025 10:15 AM CDT) Color, ur Straw Yellow Clarity, ur Clear Clear [facility] Specific gravity, ur 1.006 1.003 - 1.030 [facility] pH, urine 6.5 [facility] Comment: Interpretive Data U rine pH is affected by diet, medications, systemic acid-base disturbances, and renal tubular function. pH may affect urinary stone formation. For example, urine pH below 6.0 may help reduce the tendency for calcium phosphate stones and pH greater than 6.0 may reduce the tendency for uric acid stone formation. Source: [facility] Current Interpretive Data was last revised on 2017 Protein, ur ql Negative Negative [facility] Glucose, ur ql Negative Negative [facility] Ketones, ur Negative Negative [facility] Bilirubin, ur Negative Negative [facility] Blood, ur Trace(A) Negative [facility] Urobilinogen, ur <2.0 <2.0 mg/dL [facility] Nitrite, ur Negative Negative [facility] Leukocyte esterase, ur Negative [facility] UA reflex comment Reflex to microscopic UA will be performed. [facility] Urine 04/03/2025 10:1 5 AM CDT 04/03/2025 10:25 AM CDT us Linda Taylor NP LAB MICROBIOLOGY - GENERA L ORDERABLES Final Result [facility] Department [place] [address] * Urinalysis, microscopic only (04/03/2025 10:15 AM CDT) WBC, ur 0-5 0 - 5 /HPF RBC, ur 0-2 0 - 2 /HPF [facility] Culture Reflex Comment Reflex conditions for urine culture (WBC >10) not met. [facility] Urine 04/03/2025 10:1 5 AM CDT 04/03/2025 10:25 AM CDT us Linda Taylor RESEARCH CENTER DIRECTOR LAB URINE ORDERABLES Rosa Maria l Result Performing Organization Address City/[facility] Co de Phone Number [facility] Department [place] [address] * eGFR (04/03/2025 8:42 AM CDT) eGFR 88 >=60 mL/min/1. 73 m2 Comment: Interpretive Data Reference Interval Normal >/= 90 mL/min/1.73m2 Mildly decreased* 60 - 89 mL/min/1.73m2 Mildly to moderately decreased 45 - 59 mL/min/1.73m2 Moderately to severely decreased 30 - 44 mL/min/1.73m2 Severely decreased 15 - 29 mL/min/1.73m2 Kidney Failure < 15 mL/min/1.73m2 *Relative to young adult level Estimated glomerular filtration rate is determined by the 2020 CKD-EPI equation recommended by the National Kidney [employer] (A Unifying Approach to GFR Estimation: Recommendations of the NKF-ASK Task Force on Reassessing the Inclusion of Race in Diagnosing Kidney Disease, JASN 2020). The CKD-EPI equation should not be used for patients with unstable renal function and has not been validated in children and those over 70. Current interpretive data was last reviewed 2021. Blood 04/03/2025 8:42 AM CDT 04/03/2025 8:46 AM CDT Linda Taylor RESEARCH CENTER DIRECTOR LAB BLOOD ORDERABLES Rosa Maria l Result Performing Organization Address City/[facility] Co de Phone Number [facility] Department [place] [address] * Differential, auto (04/03/2025 8:42 AM CDT) Neutrophil abs 2.96 1.50 - 6.50 K/cumm Comment:Testing performed by : [facility]e [facility], [address] [place] [phone] Lymphocyte abs 1.54 0.80 - 3.30 K/cumm [facility] Comment:Testing performed by : [facility]e [facility], [address] [place] [phone] Monocyte abs 0.43 0.20 - 0.80 K/cumm [facility] Comment:Testing performed by : [facility], [address] [place] [phone] Eosinophil abs 0.15 0.00 - 0.50 K/cumm [facility] Comment:Testing performed by : [facility], [address] [place] [phone] Basophil abs 0.02 0.00 - 0.10 K/cumm [facility] Comment:Testing performed by : [facility], [address] [place] [phone] Neutrophil pct 58.1 % [facility] Comment: Interpretive Data Percent cell count reference ranges are not reported, since discordance with absolute values may lead to misinterpretation of CBC data. Current Interpretive Data was last revised on 2017. Testing performed by: [facility], [address] [place] [phone] Lymphocyte pct 30.2 % [facility] Comment: Interpretive Data Percent cell count reference ranges are not reported, since discordance with absolute values may lead to misinterpretation of CBC data. Current Interpretive Data was last revised on 2017. Testing performed by: [facility], [address] [place] [phone] Monocyte pct 8.4 % [facility] Comment: Interpretive Data Percent cell count reference ranges are not reported, since discordance with absolute values may lead to misinterpretation of CBC data. Current Interpretive Data was last revised on 2017. Testing performed by: [facility], [address] [place] [phone] Eosinophil pct 2.9 % [facility] Comment: Interpretive Data Percent cell count reference ranges are not reported, since discordance with absolute values may lead to misinterpretation of CBC data. Current Interpretive Data was last revised on 2017. Testing performed by: [facility], [address] [place] [phone] Basophil pct 0.4 % [facility] Comment: Interpretive Data Percent cell count reference ranges are not reported, since discordance with absolute values may lead to misinterpretation of CBC data. Current Interpretive Data was last revised on 2017. Testing performed by: [facility], [address] [place] [address] Blood 04/03/2025 8:42 AM CDT 04/03/2025 8:45 AM CDT Linda Taylor RESEARCH CENTER DIRECTOR LAB BLOOD ORDERABLES Rosa Maria dwyer Result [facility] Department [place] [address] * CBC with auto differential (04/03/2025 8:42 AM CDT) WBC 5.09 3.80 - 9.90 K/cumm Comment:Testing performed by : [facility], [address] [place] [address] Hgb 12.8 11.9 - 15.5 g/dL [facility] Comment:Testing performed by : [facility], [address] [place] [address] Hct 38.5 35.6 - 45.5 % C[facility]ASH [facility] Comment:Testing performed by : [facility], [address] [place] [address] Plt 240 150 - 400 K/cumm [facility]ASH [facility] Comment:Testing performed by : [facility], [address] [place] [address] MPV 6.8 6.8 - 10.4 fL C[facility]AILASH [facility] Comment:Testing performed by : [facility], [address] [place] [address] RBC 4.55 3.90 - 5.20 M/cumm [facility]ASH [facility] Comment:Testing performed by : [facility], [address] [place] [address] MCV 84.6 81.3 - 96.4 fL CERKAILASH [facility] Comment:Testing performed by : [facility], [address] [place], [place] [phone] MCH 28.2 27.1 - 33.[address] [facility] Comment:Testing performed by : [facility], [address] [place], [place] [phone] MCHC 33.3 32.3 - 35.7 g/dL [facility] Comment:Testing performed by : [facility], [address] [place], [place] [phone] RDW CV 14.7 11.1 - 14.9 % [facility] Comment:Testing performed by : [facility], [address] [place], [place] [phone] NRBC abs 0.00 0.00 - 0.01 K/cumm [facility] Comment:Testing performed by : [facility], [address] [place], [place] [phone] Blood 04/03/2025 8:42 AM CDT 04/03/2025 8:45 AM CDT Linda Taylor RESEARCH CENTER DIRECTOR LAB BLOOD ORDERABLES Rosa Maria l Result Performing Organization Address City/[facility] Co de Phone Number [facility] Department of [place] [employer] [place] [address] * T3, free (04/03/2025 8:42 AM CDT) Free T3 2.5 2.0 - 4.4 pg/mL Blood 04/03/2025 8:42 AM CDT 04/03/2025 8:46 AM CDT Linda Taylor RESEARCH CENTER DIRECTOR LAB BLOOD ORDERABLES Rosa Maria l Result [facility] [place] [address] * TSH (04/03/2025 8:42 AM CDT) Thyroid Stimulating Hormone 2.79 0.30 - 4.20 mcIUnit/mL Blood 04/03/2025 8:42 AM CDT 04/03/2025 8:46 AM CDT Linda Taylor RESEARCH CENTER DIRECTOR LAB BLOOD ORDERABLES Rosa Maria l Result Performing Organization Address [facility] Co de Phone Number [facility] [place] [address] * T4, free (04/03/2025 8:42 AM CDT) Free T4 1.05 0.90 - 1.70 ng/dL Blood 04/03/2025 8:42 AM CDT 04/03/2025 8:46 AM CDT Linda Taylor RESEARCH CENTER DIRECTOR LAB BLOOD ORDERABLES Rosa Maria l Result Performing Organization Address [facility] de Phone Number [facility] [place] [address] * Phosphorus (04/03/2025 8:42 AM CDT) Phosphorus, pl 3.6 2.3 - 4.5 mg/dL Blood 04/03/2025 8:42 AM CDT 04/03/2025 8:46 AM CDT Linda Taylor RESEARCH CENTER DIRECTOR LAB BLOOD ORDERABLES Rosa Maria l Result Performing Organization Address City/[facility] Co de Phone Number [facility] [place] [address] * (ABNORMAL) PTH (04/03/2025 8:42 AM CDT) PTH 119(H) 18 - 59 pg/mL Blood 04/03/2025 8:42 AM CDT 04/03/2025 9:22 AM CDT Linda Taylor RESEARCH CENTER DIRECTOR LAB BLOOD ORDERABLES Rosa Maria l Result Performing Organization Address City/[facility] Co de Phone Number [facility] [place] [address] * Magnesium (04/03/2025 8:42 AM CDT) Magnesium 1.7 1.4 - 2.5 mg/dL Blood 04/03/2025 8:42 AM CDT 04/03/2025 8:46 AM CDT Linda Taylor RESEARCH CENTER DIRECTOR LAB BLOOD ORDERABLES Rosa Maria l Result Performing Organization Address [facility] de Phone Number [facility] [place] [address] * Lactate dehydrogenase (LD) (04/03/2025 8:42 AM CDT) Lactate dehydrogenase (LDH) 199 100 - 250 Units/L Blood 04/03/2025 8:42 AM CDT 04/03/2025 8:46 AM CDT Linda Taylor RESEARCH CENTER DIRECTOR LAB BLOOD ORDERABLES Rosa Maria l Result Performing Organization Address [facility] de Phone Number [facility] [place] [address] * Creatine kinase (CK), total (04/03/2025 8:42 AM CDT) CK 87 30 - 200 Units/L Blood 04/03/2025 8:42 AM CDT 04/03/2025 8:46 AM CDT Linda Taylor RESEARCH CENTER DIRECTOR LAB BLOOD ORDERABLES Rosa Maria l Result Performing Organization Address City/[facility] Co de Phone Number [facility] Department [place] [address] * Bilirubin, direct (04/03/2025 8:42 AM CDT) Bilirubin, direct 0.2 0.1 - 0.3 mg/dL Blood 04/03/2025 8:42 AM CDT 04/03/2025 8:46 AM CDT us Linda Taylor RESEARCH CENTER DIRECTOR LAB BLOOD ORDERABLES Rosa Maria reymundo Result [facility] Department [place] [address] * (ABNORMAL) Comprehensive metabolic panel (04/03/2025 8:42 AM CDT) Sodium 139 135 - 145 mmol/L Potassium, pl 3.8 3.3 - 4.9 mmol/L [facility] Chloride 107 97 - 110 mmol/L [facility] CO2 24 22 - 32 mmol/L [facility] Anion gap 8 2 - 15 mmol/L [facility] BUN 12 6 - 25 mg/dL [facility] Creatinine 0.77 0.60 - 1.10 mg/dL [facility] Glucose 87 70 - 199 mg/dL [facility] Comment: Interpretive Data Fasting glucose >/= 126 mg/dl is diagnostic for diabetes. Fasting is defined as no caloric intake for at least 8 hours. Fasting glucose between 100 mg/dl to 125 mg/dl is diagnostic of prediabetes. In a patient with classic symptoms of hyperglycemia or hyperglycemic crisis, a random glucose >/= 200 mg/dl is diagnostic for diabetes. In the absence of unequivocal hyperglycemia, results should be confirmed by repeat testing. The classification and Diagnosis of Diabetes Diabetes Care 202; 46: S19-S40. Current interpretive data was last revised 2022. Calcium 8.5 8.5 - 10.3 mg/dL [facility] Bilirubin, total 0.6 0.1 - 1.2 mg/dL [facility] Protein, pl 6.7 6.5 - 8.5 g/dL [facility] Albumin 3.7 3.5 - 5.0 g/dL [facility] Alk phos 159(H) 40 - 130 Units/L [facility] ALT 14 7 - 45 Units/L [facility] AST 24 10 - 45 Units/L [facility] Blood 04/03/2025 8:42 AM CDT 04/03/2025 8:46 AM CDT us Linda Taylor RESEARCH CENTER DIRECTOR LAB BLOOD ORDERABLES Rosa Maria reymundo Result [facility] Department [place] [address] * MRI Brain W WO Contrast (03/29/2025 2:38 PM CDT) Anatomical Region Laterality Modality Head and Neck N/A Magnetic Resonan ce 03/29/2025 2:57 PM CDT Impressions 03/29/2025 3:35 PM CDT No evidence of intracranial metastatic disease. Dictated by: Guillaume Starr MD The radiology attending physician has personally reviewed this study, and had reviewed and/or edited this written report and agrees with it. Electronically signed by: Erica Covington M.D. Narrative 03/29/2025 3:35 PM CDT EXAMINATION: Magnetic resonance imaging (MRI) of the brain and brainstem without and with contrast HISTORY: Metastatic lung adenocarcinoma, on clinical trial TECHNIQUE: Multiplanar multi-weighted MRI of the brain and brainstem was performed without and with intravenous contrast using the general brain protocol. Contrast information: 14 mL Gadoterate Meglumine IV COMPARISON: Brain MRI 02/21/2025 FINDINGS: The scalp and calvarium are normal. The superior sagittal sinus demonstrates normal venous flow. The corpus callosum is normal in shape and signal intensity. The posterior fossa is unremarkable. The pituitary and sella are normal. The brainstem and craniocervical junction are unremarkable. Diffusion weighted images reveal no hyperintensities to suggest acute cerebral infarction. The susceptibility weighted sequences reveal no evidence of acute or chronic hemorrhage. The ventricles are normal in size and position without evidence of hydrocephalus. Mild foci of T2/FLAIR hyperintensity in the periventricular and deep white matter are nonspecific but may be seen in the setting of chronic microvascular ischemia. The paranasal sinuses are normal. The visualized portions of the mastoids are unremarkable. The orbits appear normal. Normal flow voids are demonstrated in the carotid arteries and basilar artery. There is no abnormal contrast enhancement. Procedure Note Erica Covington MD - 03/29/2025 EXAMINATION: Magnetic resonance imaging (MRI) of the brain and brainstem without and with contrast HISTORY: Metastatic lung adenocarcinoma, on clinical trial TECHNIQUE: Multiplanar multi-weighted MRI of the brain and brainstem was performed without and with intravenous contrast using the general brain protocol. Contrast information: 14 mL Gadoterate Meglumine IV COMPARISON: Brain MRI 02/21/2025 FINDINGS: The scalp and calvarium are normal. The superior sagittal sinus demonstrates normal venous flow. The corpus callosum is normal in shape and signal intensity. The posterior fossa is unremarkable. The pituitary and sella are normal. The brainstem and craniocervical junction are unremarkable. Diffusion weighted images reveal no hyperintensities to suggest acute cerebral infarction. The susceptibility weighted sequences reveal no evidence of acute or chronic hemorrhage. The ventricles are normal in size and position without evidence of hydrocephalus. Mild foci of T2/FLAIR hyperintensity in the periventricular and deep white matter are nonspecific but may be seen in the setting of chronic microvascular ischemia. The paranasal sinuses are normal. The visualized portions of the mastoids are unremarkable. The orbits appear normal. Normal flow voids are demonstrated in the carotid arteries and basilar artery. There is no abnormal contrast enhancement. IMPRESSION: No evidence of intracranial metastatic disease. Dictated by: Guillaume Starr MD The radiology attending physician has personally reviewed this study, and had reviewed and/or edited this written report and agrees with it. Electronically signed by: Erica Covington M.D. Linda Taylor NP IMG MRI PROCEDURES Final Result * CT chest abdomen pelvis with contrast (03/29/2025 1:45 PM CDT) Anatomical Region Laterality Modality Body N/A Computed Tomogra phy 03/29/2025 4:04 PM CDT Impressions 03/29/2025 5:39 PM CDT 1. Evolving posttreatment changes in the right lung, with unchanged bilateral tiny indeterminate pulmonary nodules. No evidence of progressive disease. 2. No metastatic disease in the abdomen or pelvis. Dictated by: Preston Galicia M.D. The radiology attending physician has personally reviewed this study, and had reviewed and/or edited this written report and agrees with it. 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 Patient status post thoracotomy, chemotherapy, and radiation. Now enrolled in research study. TECHNIQUE: Transaxial computed tomographic images of the chest, abdomen and pelvis were obtained with intravenous contrast according to the standard protocol after the administration of 69 mL Opti-Ray 350 intravenous contrast. COMPARISON: CT chest abdomen pelvis 02/21/2025 FINDINGS: Chest: Right chest port central venous catheter terminating in the superior cavoatrial junction. There is no supraclavicular, axillary, or hilar lymphadenopathy. Mildly enlarged right paratracheal lymph node, unchanged. Small mediastinal nodes subcentimeter are unchanged. Heart size is normal. No pericardial effusion. Posttreatment change in the superior segment of the right lower lobe extending along the minor fissure extending into right middle lobe and inferior right upper lobe that is stable. Background of emphysema with scattered tiny pulmonary nodules that are indeterminate and unchanged. Small right pleural fluid with round atelectasis at the right lung base unchanged. No new or enlarging suspicious pulmonary nodules or masses. Abdomen/Pelvis: No focal hepatic lesion. No intra or extrahepatic ductal dilation. Cholecystectomy. Normal spleen, normal adrenal glands, and normal pancreas. Kidneys enhance symmetrically without hydronephrosis or nephrolithiasis. Normal stomach and duodenal sweep. Normal caliber colon. Diverticulosis without evidence of diverticulitis. There is no free air or free fluid. Normal bladder. No suspicious adnexal masses. Mildly calcified nonaneurysmal abdominal aorta with patent celiac branch, superior mesenteric artery, and inferior mesenteric artery. Patent main portal vein, splenic vein, and superior mesenteric vein. There is no mesenteric, retroperitoneal, or pelvic lymphadenopathy. Left femoral fixation hardware. Unchanged chronic fragmentation/remodeling of right 5th 6th ribs which may be sequelae of radiation. Procedure Note Sulma Bledsoe MD - 03/29/2025 EXAMINATION: Computed tomography of the chest, abdomen and pelvis with intravenous contrast HISTORY: 59-year-old female with stage IV adenocarcinoma of the right lung diagnosed in 2018. Patient status post thoracotomy, chemotherapy, and radiation. Now enrolled in research study. TECHNIQUE: Transaxial computed tomographic images of the chest, abdomen and pelvis were obtained with intravenous contrast according to the standard protocol after the administration of 69 mL Opti-Ray 350 intravenous contrast. COMPARISON: CT chest abdomen pelvis 02/21/2025 FINDINGS: Chest: Right chest port central venous catheter terminating in the superior cavoatrial junction. There is no supraclavicular, axillary, or hilar lymphadenopathy. Mildly enlarged right paratracheal lymph node, unchanged. Small mediastinal nodes subcentimeter are unchanged. Heart size is normal. No pericardial effusion. Posttreatment change in the superior segment of the right lower lobe extending along the minor fissure extending into right middle lobe and inferior right upper lobe that is stable. Background of emphysema with scattered tiny pulmonary nodules that are indeterminate and unchanged. Small right pleural fluid with round atelectasis at the right lung base unchanged. No new or enlarging suspicious pulmonary nodules or masses. Abdomen/Pelvis: No focal hepatic lesion. No intra or extrahepatic ductal dilation. Cholecystectomy. Normal spleen, normal adrenal glands, and normal pancreas. Kidneys enhance symmetrically without hydronephrosis or nephrolithiasis. Normal stomach and duodenal sweep. Normal caliber colon. Diverticulosis without evidence of diverticulitis. There is no free air or free fluid. Normal bladder. No suspicious adnexal masses. Mildly calcified nonaneurysmal abdominal aorta with patent celiac branch, superior mesenteric artery, and inferior mesenteric artery. Patent main portal vein, splenic vein, and superior mesenteric vein. There is no mesenteric, retroperitoneal, or pelvic lymphadenopathy. Left femoral fixation hardware. Unchanged chronic fragmentation/remodeling of right 5th 6th ribs which may be sequelae of radiation. IMPRESSION: 1. Evolving posttreatment changes in the right lung, with unchanged bilateral tiny indeterminate pulmonary nodules. No evidence of progressive disease. 2. No metastatic disease in the abdomen or pelvis. Dictated by: Preston Galicia M.D. The radiology attending physician has personally reviewed this study, and had reviewed and/or edited this written report and agrees with it. Electronically signed by: Sulma Bledsoe MD Linda Taylor RESEARCH CENTER DIRECTOR IMG CT PROCEDURES Final R esult * (ABNORMAL) Urinalysis reflex to microscopic and culture Urine (03/20/2025 8:56 AM CDT) Color, ur Straw Yellow Clarity, ur Clear Clear [facility] Specific gravity, ur 1.007 1.003 - 1.030 [facility] pH, urine 6.5 [facility] Comment: Interpretive Data U rine pH is affected by diet, medications, systemic acid-base disturbances, and renal tubular function. pH may affect urinary stone formation. For example, urine pH below 6.0 may help reduce the tendency for calcium phosphate stones and pH greater than 6.0 may reduce the tendency for uric acid stone formation. Source: [facility] [employer] Current Interpretive Data was last revised on 2017 Protein, ur ql Negative Negative [facility] Glucose, ur ql Negative Negative [facility] Ketones, ur Negative Negative [facility] Bilirubin, ur Negative Negative [facility] Blood, ur Trace(A) Negative [facility] Urobilinogen, ur <2.0 <2.0 mg/dL [facility] Nitrite, ur Negative Negative [facility] Leukocyte esterase, ur Negative [facility] UA reflex comment Reflex to microscopic UA will be performed. [facility] Urine 03/20/2025 8:56 AM CDT 03/20/2025 8:56 AM CDT Linda Taylor NP LAB MICROBIOLOGY - GENERA L ORDERABLES Final Result [facility] Department of Laboratories [place], [place] [id number] * Urinalysis, microscopic only (03/20/2025 8:56 AM CDT) WBC, ur 0-5 0 - 5 /HPF RBC, ur 0-2 0 - 2 /HPF [facility] Culture Reflex Comment Reflex conditions for urine culture (WBC >10) not met. [facility] Urine 03/20/2025 8:56 AM CDT 03/20/2025 8:56 AM CDT Linda Taylor RESEARCH CENTER DIRECTOR LAB URINE ORDERABLES Rosa Maria l Result [facility] Department [place] [address] * eGFR (03/20/2025 8:37 AM CDT) eGFR >90 >=60 mL/min/1. 73 m2 Comment: Interpretive Data Reference Interval Normal >/= 90 mL/min/1.73m2 Mildly decreased* 60 - 89 mL/min/1.73m2 Mildly to moderately decreased 45 - 59 mL/min/1.73m2 Moderately to severely decreased 30 - 44 mL/min/1.73m2 Severely decreased 15 - 29 mL/min/1.73m2 Kidney Failure < 15 mL/min/1.73m2 *Relative to young adult level Estimated glomerular filtration rate is determined by the 2020 CKD-EPI equation recommended by the National Kidney Foundation (A Unifying Approach to GFR Estimation: Recommendations of the NKF-ASK Task Force on Reassessing the Inclusion of Race in Diagnosing Kidney Disease, JASN 2020). The CKD-EPI equation should not be used for patients with unstable renal function and has not been validated in children and those over 70. Current interpretive data was last reviewed 2021. Blood 03/20/2025 8:37 AM CDT 03/20/2025 8:42 AM CDT Linda Taylor RESEARCH CENTER DIRECTOR LAB BLOOD ORDERABLES Rosa Maria l Result [facility] Department [place] [address] * Differential, auto (03/20/2025 8:37 AM CDT) Neutrophil abs 2.36 1.50 - 6.50 K/cumm Comment:Testing performed by : [facility], [address] [place] [phone] Lymphocyte abs 1.36 0.80 - 3.30 K/cumm [facility] Comment:Testing performed by : [facility], [address] [place] [phone] Monocyte abs 0.48 0.20 - 0.80 K/cumm [facility] Comment:Testing performed by : [facility], [address] [place] [address] Eosinophil abs 0.16 0.00 - 0.50 K/cumm [facility] Comment:Testing performed by : [facility], [address] [place], [place] [phone] Basophil abs 0.02 0.00 - 0.10 K/cumm [facility] Comment:Testing performed by : [facility], [address] [place], [place] [phone] Neutrophil pct 53.9 % [facility] Comment: Interpretive Data Percent cell count reference ranges are not reported, since discordance with absolute values may lead to misinterpretation of CBC data. Current Interpretive Data was last revised on 2017. Testing performed by: [facility], [address] [place] [phone] Lymphocyte pct 31.1 % [facility] Comment: Interpretive Data Percent cell count reference ranges are not reported, since discordance with absolute values may lead to misinterpretation of CBC data. Current Interpretive Data was last revised on 2017. Testing performed by: [facility], [address] [place] [phone] Monocyte pct 10.9 % [facility] Comment: Interpretive Data Percent cell count reference ranges are not reported, since discordance with absolute values may lead to misinterpretation of CBC data. Current Interpretive Data was last revised on 2017. Testing performed by: [facility], [address] [place] [phone] Eosinophil pct 3.6 % [facility] Comment: Interpretive Data Percent cell count reference ranges are not reported, since discordance with absolute values may lead to misinterpretation of CBC data. Current Interpretive Data was last revised on 2017. Testing performed by: [facility], [address] [place] [phone] Basophil pct 0.5 % CERKAILASH LAYNE Comment: Interpretive Data Percent cell count reference ranges are not reported, since discordance with absolute values may lead to misinterpretation of CBC data. Current Interpretive Data was last revised on 2017. Testing performed by: [facility], [address] [place] [phone] Blood 03/20/2025 8:37 AM CDT 03/20/2025 8:40 AM CDT us Linda Taylor RESEARCH CENTER DIRECTOR LAB BLOOD ORDERABLES Rosa Maria dwyer Result [facility] L[facility] Department [place] [address] * CBC with auto differential (03/20/2025 8:37 AM CDT) WBC 4.38 3.80 - 9.90 K/cumm Comment:Testing performed by : [facility], [address] [place] [address] Hgb 12.6 11.9 - 15.5 g/dL [facility] L[facility]NE Comment:Testing performed by : [facility], [address] [place] [address] Hct 37.8 35.6 - 45.5 % CLAIR LAYNE Comment:Testing performed by : [facility], [address] [place] [address] Plt 243 150 - 400 K/cumm CLAIR LAYNE Comment:Testing performed by : [facility], [address] [place] [address] MPV 6.8 6.8 - 10.4 fL CLAIR LAYNE Comment:Testing performed by : [facility], [address] [place] [address] RBC 4.43 3.90 - 5.20 M/cumm CLAIR LAYNE Comment:Testing performed by : [facility], [address] [place], [place] [phone] MCV 85.4 81.3 - 96.[address] [facility] Comment:Testing performed by : [facility], [address] [place], [place] [phone] MCH 28.5 27.1 - 33.[address] [facility] Comment:Testing performed by : [facility], [address] [place], [place] [phone] MCHC 33.4 32.3 - 35.7 g/dL [facility] Comment:Testing performed by : [facility], [address] [place], [place] [phone] RDW CV 14.7 11.1 - 14.9 % [facility]IR [facility] Comment:Testing performed by : [facility], [address] [place], [place] [phone] NRBC abs 0.00 0.00 - 0.01 K/cumm CLAIR [facility] Comment:Testing performed by : [facility], [address] [place], [place] [phone] Blood 03/20/2025 8:37 AM CDT 03/20/2025 8:40 AM CDT Linda Taylor RESEARCH CENTER DIRECTOR LAB BLOOD ORDERABLES Rosa Amria l Result Performing Organization Address [facility] Co de Phone Number [facility] Department of [place] [address] * T3, free (03/20/2025 8:37 AM CDT) Free T3 2.6 2.0 - 4.4 pg/mL Blood 03/20/2025 8:37 AM CDT 03/20/2025 8:42 AM CDT Linda Taylor RESEARCH CENTER DIRECTOR LAB BLOOD ORDERABLES Rosa Maria l Result Performing Organization Address City/[facility] Co de Phone Number [place] [address] * TSH (03/20/2025 8:37 AM CDT) Pathologist [facility] Thyroid Stimulating Hormone 2.64 0.30 - 4.20 mcIUnit/mL Blood 03/20/2025 8:37 AM CDT 03/20/2025 8:42 AM CDT Linda Taylor RESEARCH CENTER DIRECTOR LAB BLOOD ORDERABLES [place] [address] * T4, free (03/20/2025 8:37 AM CDT) [facility] Free T4 1.14 0.90 - 1.70 ng/dL Blood 03/20/2025 8:37 AM CDT 03/20/2025 8:42 AM CDT Linda Taylor RESEARCH CENTER DIRECTOR LAB BLOOD ORDERABLES Rosa Maria l Result Performing Organization Address City/[facility]/[place] [address] * Phosphorus (03/20/2025 8:37 AM CDT) Pathologist [facility] Phosphorus, pl 3.1 2.3 - 4.5 mg/dL Blood 03/20/2025 8:37 AM CDT 03/20/2025 8:42 AM CDT Linda Taylor RESEARCH CENTER DIRECTOR LAB BLOOD ORDERABLES [place] [address] * (ABNORMAL) PTH (03/20/2025 8:37 AM CDT) [facility] PTH 113(H) 18 - 59 pg/mL Blood 03/20/2025 8:37 AM CDT 03/20/2025 9:25 AM CDT us Linda Taylor RESEARCH CENTER DIRECTOR LAB BLOOD ORDERABLES Rosa Maria l Result Performing Organization Address [facility] Co de Phone Number [facility] [place] [address] * Magnesium (03/20/2025 8:37 AM CDT) Magnesium 1.8 1.4 - 2.5 mg/dL Blood 03/20/2025 8:37 AM CDT 03/20/2025 8:42 AM CDT Linda Taylor RESEARCH CENTER DIRECTOR LAB BLOOD ORDERABLES Rosa Maria l Result Performing Organization Address [facility] de Phone Number [facility] Department of [place] [address] * Lactate dehydrogenase (LD) (03/20/2025 8:37 AM CDT) Lactate dehydrogenase (LDH) 196 100 - 250 Units/L Blood 03/20/2025 8:37 AM CDT 03/20/2025 8:42 AM CDT us Linda Taylor RESEARCH CENTER DIRECTOR LAB BLOOD ORDERABLES Rosa Maria l Result Performing Organization Address [facility] Co de Phone Number [facility] [place] [address] * Creatine kinase (CK), total (03/20/2025 8:37 AM CDT) CK 100 30 - 200 Units/L Blood 03/20/2025 8:37 AM CDT 03/20/2025 8:42 AM CDT Linda GouldBrandon Taylor RESEARCH CENTER DIRECTOR LAB BLOOD ORDERABLES Rosa Maria l Result [facility] Department [place] [address] * Bilirubin, direct (03/20/2025 8:37 AM CDT) [facility] Bilirubin, direct 0.2 0.1 - 0.3 mg/dL Blood 03/20/2025 8:37 AM CDT 03/20/2025 8:42 AM CDT Linda Lorenzo Brandon LAB BLOOD ORDERABLES Rosa Maria l Result Performing Organization Address [facility] Co de Phone Number [facility] Department [place] [address] * (ABNORMAL) Comprehensive metabolic panel (03/20/2025 8:37 AM CDT) [facility] Sodium 139 135 - 145 mmol/L Potassium, pl 3.8 3.3 - 4.9 mmol/L [facility] Chloride 106 97 - 110 mmol/L [facility] CO2 24 22 - 32 mmol/L [facility] Anion gap 9 2 - 15 mmol/L [facility] BUN 12 6 - 25 mg/dL [facility] Creatinine 0.73 0.60 - 1.10 mg/dL [facility] Glucose 91 70 - 199 mg/dL [facility] Comment: Interpretive Data Fasting glucose >/= 126 mg/dl is diagnostic for diabetes. Fasting is defined as no caloric intake for at least 8 hours. Fasting glucose between 100 mg/dl to 125 mg/dl is diagnostic of prediabetes. In a patient with classic symptoms of hyperglycemia or hyperglycemic crisis, a random glucose >/= 200 mg/dl is diagnostic for diabetes. In the absence of unequivocal hyperglycemia, results should be confirmed by repeat testing. The classification and Diagnosis of Diabetes Diabetes Care 2021; 46: S19-S40. Current interpretive data was last revised 2022. Calcium 8.8 8.5 - 10.3 mg/dL [facility] Bilirubin, total 0.5 0.1 - 1.2 mg/dL [facility] Protein, pl 6.6 6.5 - 8.5 g/dL [facility] Albumin 3.7 3.5 - 5.0 g/dL [facility] Alk phos 175(H) 40 - 130 Units/L [facility] ALT 18 7 - 45 Units/L [facility] AST 24 10 - 45 Units/L [facility] Blood 03/20/2025 8:37 AM CDT 03/20/2025 8:42 AM CDT us Linda Taylor RESEARCH CENTER DIRECTOR LAB BLOOD ORDERABLES Rosa Maria dwyer Result [facility] Department [place] [address] * (ABNORMAL) Urinalysis reflex to microscopic and culture Urine (03/12/2025 9:13 AM CDT) Color, ur Straw Yellow Clarity, ur Clear Clear [facility] Specific gravity, ur 1.007 1.003 - 1.030 [facility] pH, urine 6.5 [facility] Comment: Interpretive Data U rine pH is affected by diet, medications, systemic acid-base disturbances, and renal tubular function. pH may affect urinary stone formation. For example, urine pH below 6.0 may help reduce the tendency for calcium phosphate stones and pH greater than 6.0 may reduce the tendency for uric acid stone formation. Source: [facility] [employer] Current Interpretive Data was last revised on 2017 Protein, ur ql Negative Negative [facility] Glucose, ur ql Negative Negative [facility] Ketones, ur Negative Negative [facility] Bilirubin, ur Negative Negative [facility] Blood, ur 1+(A) Negative [facility] Urobilinogen, ur <2.0 <2.0 mg/dL [facility] Nitrite, ur Negative Negative [facility] Leukocyte esterase, ur Negative [facility] UA reflex comment Reflex to microscopic UA will be performed. [facility] Urine 03/12/2025 9:13 AM CDT 03/12/2025 9:13 AM CDT Linda Taylor RESEARCH CENTER DIRECTOR LAB MICROBIOLOGY - GENERA L ORDERABLES Final Result Performing Organization Address City/[facility] Co de Phone Number [facility] Department [place] [address] * Urinalysis, microscopic only (03/12/2025 9:13 AM CDT) WBC, ur 0-5 0 - 5 /HPF RBC, ur 0-2 0 - 2 /HPF [facility] Epithelial cells, squamous, ur 1-5 0 - 5 /HPF [facility] Culture Reflex Comment Reflex conditions for urine culture (WBC >10) not met. [facility] Urine 03/12/2025 9:13 AM CDT 03/12/2025 9:13 AM CDT Linda Taylor RESEARCH CENTER DIRECTOR LAB URINE ORDERABLES Rosa Maria l Result Performing Organization Address [facility] Co de Phone Number [facility] Department [place] [address] * eGFR (03/12/2025 9:02 AM CDT) eGFR 89 >=60 mL/min/1. 73 m2 Comment: Interpretive Data Reference Interval Normal >/= 90 mL/min/1.73m2 Mildly decreased* 60 - 89 mL/min/1.73m2 Mildly to moderately decreased 45 - 59 mL/min/1.73m2 Moderately to severely decreased 30 - 44 mL/min/1.73m2 Severely decreased 15 - 29 mL/min/1.73m2 Kidney Failure < 15 mL/min/1.73m2 *Relative to young adult level Estimated glomerular filtration rate is determined by the 2020 CKD-EPI equation recommended by the National Kidney Foundation (A Unifying Approach to GFR Estimation: Recommendations of the NKF-ASK Task Force on Reassessing the Inclusion of Race in Diagnosing Kidney Disease, JASN 2020). The CKD-EPI equation should not be used for patients with unstable renal function and has not been validated in children and those over 70. Current interpretive data was last reviewed 2021. Blood 03/12/2025 9:02 AM CDT 03/12/2025 9:14 AM CDT us Maura Taylor RESEARCH CENTER DIRECTOR LAB BLOOD ORDERABLES Rosa Maria dwyer Result [facility] [place] [address] * Differential, auto (03/12/2025 9:02 AM CDT) Neutrophil abs 3.52 1.50 - 6.50 K/cumm Comment:Testing performed by : [facility], [address] [place] [phone] Lymphocyte abs 1.55 0.80 - 3.30 K/cumm [facility]IR [facility] Comment:Testing performed by : [facility], [address] [place] [phone] Monocyte abs 0.53 0.20 - 0.80 K/cumm CLAIR [facility] Comment:Testing performed by : [facility], [address] [place] [phone] Eosinophil abs 0.19 0.00 - 0.50 K/cumm CLAIR [facility] Comment:Testing performed by : [facility], [address] [place] [phone] Basophil abs 0.03 0.00 - 0.10 K/cumm CLAIR [facility] Comment:Testing performed by : [facility], [address] [place] [phone] Neutrophil pct 60.6 % CERNER [facility] Comment: Interpretive Data Percent cell count reference ranges are not reported, since discordance with absolute values may lead to misinterpretation of CBC data. Current Interpretive Data was last revised on 2017. Testing performed by: [facility], [address] [place] [phone] Lymphocyte pct 26.8 % CERKAILASH [facility] Comment: Interpretive Data Percent cell count reference ranges are not reported, since discordance with absolute values may lead to misinterpretation of CBC data. Current Interpretive Data was last revised on 2017. Testing performed by: [facility], [address] [place] [phone] Monocyte pct 9.1 % CLAIR LAYNE Comment: Interpretive Data Percent cell count reference ranges are not reported, since discordance with absolute values may lead to misinterpretation of CBC data. Current Interpretive Data was last revised on 2017. Testing performed by: [facility], [address] [place] [phone] Eosinophil pct 3.2 % CLAIR LAYNE Comment: Interpretive Data Percent cell count reference ranges are not reported, since discordance with absolute values may lead to misinterpretation of CBC data. Current Interpretive Data was last revised on 2017. Testing performed by: [facility], [address] [place] [phone] Basophil pct 0.5 % CLAIR LAYNE Comment: Interpretive Data Percent cell count reference ranges are not reported, since discordance with absolute values may lead to misinterpretation of CBC data. Current Interpretive Data was last revised on 2017. Testing performed by: [facility], [address] [place] [phone] Blood 03/12/2025 9:02 AM CDT 03/12/2025 9:08 AM CDT us Linda Taylor RESEARCH CENTER DIRECTOR LAB BLOOD ORDERABLES Rosa Maria l Result [facility] LAYNE [facility] [place] [address] * (ABNORMAL) CBC with auto differential (03/12/2025 9:02 AM CDT) WBC 5.81 3.80 - 9.90 K/cumm Comment:Testing performed by : [facility], [address] [place] [phone] Hgb 12.6 11.9 - 15.5 g/dL CLAIR LAYNE Comment:Testing performed by : [facility], [address] [place], [place] [phone] Hct 36.5 35.6 - 45.5 % [facility] Comment:Testing performed by : [facility], [address] [place], [place] [phone] Plt 211 150 - 400 K/cumm [facility] Comment:Testing performed by : [facility], [address] [place], [place] [phone] MPV 6.9 6.8 - 10.4 fL [facility] Comment:Testing performed by : [facility], [address] [place], [place] [phone] RBC 4.35 3.90 - 5.20 M/cumm C[facility]ASH [facility] Comment:Testing performed by : [facility], [address] [place], [place] [phone] MCV 83.9 81.3 - 96.4 fL CERKAILASH [facility]J Comment:Testing performed by : [facility], [address] [place], [place] [phone] MCH 28.9 27.1 - 33.3 pg [facility] Comment:Testing performed by : [facility], [address] [place], [place] [phone] MCHC 34.5 32.3 - 35.7 g/dL [facility] Comment:Testing performed by : [facility], [address] [place], [place] [phone] RDW CV 15.0(H) 11.1 - 14.9 % [facility] Comment:Testing performed by : [facility], [address] [place], [place] [phone] NRBC abs 0.00 0.00 - 0.01 K/cumm CERKAILASH [facility]J Comment:Testing performed by : [facility], [address] [place], [place] [phone] Blood 03/12/2025 9:02 AM CDT 03/12/2025 9:08 AM CDT W. Brandon RESEARCH CENTER DIRECTOR LAB BLOOD ORDERABLES Rosa Maria l Result [facility] [place] [address] * T3, free (03/12/2025 9:02 AM CDT) Free T3 2.9 2.0 - 4.4 pg/mL Blood 03/12/2025 9:02 AM CDT 03/12/2025 9:14 AM CDT Linda Taylor RESEARCH CENTER DIRECTOR LAB BLOOD ORDERABLES Rosa Maria l Result Performing Organization Address [facility] Co de Phone Number [facility] [place] [address] * TSH (03/12/2025 9:02 AM CDT) Thyroid Stimulating Hormone 3.40 0.30 - 4.20 mcIUnit/mL Blood 03/12/2025 9:02 AM CDT 03/12/2025 9:14 AM CDT Linda Taylor RESEARCH CENTER DIRECTOR LAB BLOOD ORDERABLES Rosa Maria l Result Performing Organization Address City/[facility] Co de Phone Number [facility] [place] [address] * T4, free (03/12/2025 9:02 AM CDT) Free T4 1.08 0.90 - 1.70 ng/dL Blood 03/12/2025 9:02 AM CDT 03/12/2025 9:14 AM CDT Linda Taylor RESEARCH CENTER DIRECTOR LAB BLOOD ORDERABLES Rosa Maria l Result [facility] [place] [address] * Phosphorus (03/12/2025 9:02 AM CDT) Pathologist [facility] Phosphorus, pl 4.0 2.3 - 4.5 mg/dL Blood 03/12/2025 9:02 AM CDT 03/12/2025 9:14 AM CDT Linda Taylor RESEARCH CENTER DIRECTOR LAB BLOOD ORDERABLES Rosa Maria l Result Performing Organization Address City/[facility]/ZIP Co de Phone Number [facility] [place] [address] * (ABNORMAL) PTH (03/12/2025 9:02 AM CDT) [facility] PTH 98(H) 15 - 65 pg/mL Blood 03/12/2025 9:02 AM CDT 03/12/2025 10:56 AM CDT Linda Taylor RESEARCH CENTER DIRECTOR LAB BLOOD ORDERABLES Rosa Maria l Result Performing Organization Address City/[facility] Co de Phone Number [facility] [place] [address] * Magnesium (03/12/2025 9:02 AM CDT) [facility] Magnesium 1.9 1.4 - 2.5 mg/dL Blood 03/12/2025 9:02 AM CDT 03/12/2025 9:14 AM CDT Linda Taylor RESEARCH CENTER DIRECTOR LAB BLOOD ORDERABLES Rosa Maria l Result Performing Organization Address City/[facility] Co de Phone Number [facility] [place] [address] * Lactate dehydrogenase (LD) (03/12/2025 9:02 AM CDT) [facility] Lactate dehydrogenase (LDH) 207 100 - 250 Units/L Blood 03/12/2025 9:02 AM CDT 03/12/2025 9:14 AM CDT Linda Taylor RESEARCH CENTER DIRECTOR LAB BLOOD ORDERABLES Rosa Maria l Result Performing Organization Address [facility] Co de Phone Number [facility] Department [place] [address] * Creatine kinase (CK), total (03/12/2025 9:02 AM CDT) [facility] CK 108 30 - 200 Units/L Blood 03/12/2025 9:02 AM CDT 03/12/2025 9:14 AM CDT Linda Taylor RESEARCH CENTER DIRECTOR LAB BLOOD ORDERABLES Rosa Maria l Result Performing Organization Address [facility] Co de Phone Number [facility] [place] [address] * Bilirubin, direct (03/12/2025 9:02 AM CDT) [facility] Bilirubin, direct 0.2 0.1 - 0.3 mg/dL Blood 03/12/2025 9:02 AM CDT 03/12/2025 9:14 AM CDT Linda Taylor RESEARCH CENTER DIRECTOR LAB BLOOD ORDERABLES Rosa Maria l Result Performing Organization Address [facility] Co de Phone Number [facility] [place] [address] * (ABNORMAL) Comprehensive metabolic panel (03/12/2025 9:02 AM CDT) [facility] Sodium 139 135 - 145 mmol/L Potassium, pl 3.7 3.3 - 4.9 mmol/L [facility] Chloride 106 97 - 110 mmol/L [facility] CO2 25 22 - 32 mmol/L [facility] Anion gap 8 2 - 15 mmol/L [facility] BUN 14 6 - 25 mg/dL [facility] Creatinine 0.76 0.60 - 1.10 mg/dL [facility] Glucose 89 70 - 199 mg/dL [facility] Comment: Interpretive Data Fasting glucose >/= 126 mg/dl is diagnostic for diabetes. Fasting is defined as no caloric intake for at least 8 hours. Fasting glucose between 100 mg/dl to 125 mg/dl is diagnostic of prediabetes. In a patient with classic symptoms of hyperglycemia or hyperglycemic crisis, a random glucose >/= 200 mg/dl is diagnostic for diabetes. In the absence of unequivocal hyperglycemia, results should be confirmed by repeat testing. The classification and Diagnosis of Diabetes Diabetes Care 2021; 46: S19-S40. Current interpretive data was last revised 2022. Calcium 8.8 8.5 - 10.3 mg/dL [facility] Bilirubin, total 0.6 0.1 - 1.2 mg/dL [facility] Protein, pl 6.7 6.5 - 8.5 g/dL [facility] Albumin 3.7 3.5 - 5.0 g/dL [facility] Alk phos 169(H) 40 - 130 Units/L [facility] ALT 19 7 - 45 Units/L [facility] AST 26 10 - 45 Units/L [facility] Blood 03/12/2025 9:02 AM CDT 03/12/2025 9:14 AM CDT us Linda Taylor RESEARCH CENTER DIRECTOR LAB BLOOD ORDERABLES Rosa Maria dwyer Result [facility] Department [place] [address] * Pulmonary Function Test - (03/04/2025 8:00 AM CDT) FVC PRE 1.67 L [facility] FVC %PRE PRED 50 % [facility] FVC POST 1.79 L [facility] FVC %POST PRED 54 % [facility] FEV1 PRE 1.21 L [facility] FEV1 %PRE PRED 46 % [facility] FEV1 POST 1.32 L [facility] FEV1 %POST PRED 50 % [facility] FEV1/FVC PRE 72.1 % [facility] FEV1/FVC POST 73.8 % [facility] FRC PL PRE 2.64 L [facility] FRC PL %PRE PRED 84 % [facility] RV PRE 1.68 L [facility] RV %PRE PRED 77 % [facility] TLC PRE 3.39 L [facility] TLC %PRE PRED 61 % [facility] DLCO PRE 10.3 ml/min/mmH g [facility] DLCO %PRE PRED 48 % [facility] Anatomical Region Laterality Modality PFT 03/04/2025 7:22 AM CDT Narrative 03/04/2025 9:39 AM CDT PFT performed at:->[facility] PUL PFT [facility] Procedure:->Complete/Full PFT Standard:->Spirometry, Spirometry w/bronchodilator, DLCO and Lung Volumes Pulmonary Function Test Interpretation SPIROMETRY: Spirometry did not meet standards of acceptability and reproducibility. This diminishes the reliability of the results. There is a decrease in expiratory airflow at all lung volumes. The FEV1 to FVC ratio is normal. The decreased expiratory flow and FEV1 and FVC are consistent with a combined restrictive and obstructive abnormality. There is no significant improvement after inhaling a single dose of albuterol. The inspiratory loop is suggestive of submaximal effort. LUNG VOLUMES: TLC measured by plethysmography is decreased. DLCO: The diffusing capacity is decreased. A decreased diffusing capacity may be due to loss of pulmonary capillary surface area. Causes include pulmonary fibrosis (altered V/Q relationship), pulmonary vascular disease, emphysema, or interstitial pneumonitis. Note that the value for diffusing capacity is not corrected for hemoglobin and that anemia may decrease the reported value. Impression: There is a moderate restrictive ventilatory defect. There is a moderate impairment of alveolar gas exchange by DLCO. Brady Mitchell MD The attending pulmonary physician certifies a physician presence in the [facility] Suite during the administration of aerosolized bronchodilator. The attending pulmonary physician certifies that he/she has reviewed and interpreted the graphic and numerical data of this pulmonary function study and agrees with the written final report. The lower limit of normal for PaO2 and %HbO2 is age dependent. However, the [facility] Pulmonary Function Laboratory defines hypoxemia as a PaO2 <56 mm Hg or a %HbO2 <89%. Starting on June of [address] [facility] Pulmonary Function Laboratory utilizes race neutral GLI Global normative equations. Linda Taylor RESEARCH CENTER DIRECTOR PFT ORDERABLES Final Res ult * Urinalysis reflex to microscopic and culture Urine (02/26/2025 8:57 AM CDT) Color, ur Straw Yellow Clarity, ur Clear Clear [facility] Specific gravity, ur 1.010 1.003 - 1.[address] [facility] pH, urine 6.5 [facility] Comment: Interpretive Data U rine pH is affected by diet, medications, systemic acid-base disturbances, and renal tubular function. pH may affect urinary stone formation. For example, urine pH below 6.0 may help reduce the tendency for calcium phosphate stones and pH greater than 6.0 may reduce the tendency for uric acid stone formation. Source: [facility] [employer] Current Interpretive Data was last revised on 2017 Protein, ur ql Negative Negative [facility] Glucose, ur ql Negative Negative [facility] Ketones, ur Negative Negative [facility] Bilirubin, ur Negative Negative [facility] Blood, ur Negative Negative [facility] Urobilinogen, ur <2.0 <2.0 mg/dL [facility] Nitrite, ur Negative Negative [facility] Leukocyte esterase, ur Negative [facility] UA reflex comment Reflex conditions for microscopic UA and culture not met. [facility] Urine 02/26/2025 8:57 AM CDT 02/26/2025 8:58 AM CDT Linda Taylor RESEARCH CENTER DIRECTOR LAB MICROBIOLOGY - GENERA L ORDERABLES Final Result [facility] Department of Laboratories [place], [place] [id number] * Differential, auto (02/26/2025 8:10 AM CDT) Neutrophil abs 2.43 1.50 - 6.50 K/cumm Comment:Testing performed by : [facility], [address] [place] [phone] Lymphocyte abs 1.57 0.80 - 3.30 K/cumm [facility] Comment:Testing performed by : [facility], [address] [place] [phone] Monocyte abs 0.47 0.20 - 0.80 K/cumm [facility] Comment:Testing performed by : [facility], [address] [place], [place] [phone] Eosinophil abs 0.22 0.00 - 0.50 K/cumm [facility] Comment:Testing performed by : [facility], [address] [place] [phone] Basophil abs 0.02 0.00 - 0.10 K/cumm [facility] Comment:Testing performed by : [facility], [address] [place] [phone] Neutrophil pct 51.6 % [facility] Comment: Interpretive Data Percent cell count reference ranges are not reported, since discordance with absolute values may lead to misinterpretation of CBC data. Current Interpretive Data was last revised on 2017. Testing performed by: [facility], [address] [place] [phone] Lymphocyte pct 33.3 % [facility] Comment: Interpretive Data Percent cell count reference ranges are not reported, since discordance with absolute values may lead to misinterpretation of CBC data. Current Interpretive Data was last revised on 2017. Testing performed by: [facility], [address] [place] [phone] Monocyte pct 10.0 % [facility] Comment: Interpretive Data Percent cell count reference ranges are not reported, since discordance with absolute values may lead to misinterpretation of CBC data. Current Interpretive Data was last revised on 2017. Testing performed by: [facility], [address] [place] [phone] Eosinophil pct 4.8 % [facility] Comment: Interpretive Data Percent cell count reference ranges are not reported, since discordance with absolute values may lead to misinterpretation of CBC data. Current Interpretive Data was last revised on 2017. Testing performed by: [facility], [address] [place] [phone] Basophil pct 0.3 % [facility] Comment: Interpretive Data Percent cell count reference ranges are not reported, since discordance with absolute values may lead to misinterpretation of CBC data. Current Interpretive Data was last revised on 2017. Testing performed by: [facility], [address] [place] [phone] Blood 02/26/2025 8:10 AM CDT 02/26/2025 8:13 AM CDT us Linda Taylor RESEARCH CENTER DIRECTOR LAB BLOOD ORDERABLES Rosa Maria dwyer Result [facility] Department [place] [address] * (ABNORMAL) CBC with auto differential (02/26/2025 8:10 AM CDT) WBC 4.70 3.80 - 9.90 K/cumm Comment:Testing performed by : [facility], [address] [place] [address] Hgb 12.6 11.9 - 15.5 g/dL [facility] Comment:Testing performed by : [facility], [address] [place] [address] Hct 36.9 35.6 - 45.5 % [facility] Comment:Testing performed by : [facility], [address] [place] [address] Plt 219 150 - 400 K/cumm [facility] Comment:Testing performed by : [facility], [address] [place] [address] MPV 6.8 6.8 - 10.4 fL [facility] Comment:Testing performed by : [facility], [address] [place] [address] RBC 4.39 3.90 - 5.20 M/cumm [facility] Comment:Testing performed by : [facility], [address] [place] [address] MCV 84.0 81.3 - 96.4 fL [facility] Comment:Testing performed by : [facility], [address] [place], [place] [phone] MCH 28.6 27.1 - 33.3 pg [facility] [place] [facility] Comment:Testing performed by : [facility], [address] [place] [address] MCHC 34.1 32.3 - 35.7 g/dL [facility]IR [facility] Comment:Testing performed by : [facility], [address] [place], [place] [phone] RDW CV 15.1(H) 11.1 - 14.9 % [facility] [place] [facility] Comment:Testing performed by : [facility], [address] [place], [place] [phone] NRBC abs 0.00 0.00 - 0.01 K/cumm [facility] [place] [facility] Comment:Testing performed by : [facility], [address] [place] [address] Blood 02/26/2025 8:10 AM CDT 02/26/2025 8:13 AM CDT Linda Taylor RESEARCH CENTER DIRECTOR LAB BLOOD ORDERABLES Rosa Maria dwyer Result [facility] Department [place] [address] * eGFR (02/26/2025 8:10 AM CDT) eGFR 77 >=60 mL/min/1. 73 m2 Comment: Interpretive Data Reference Interval Normal >/= 90 mL/min/1.73m2 Mildly decreased* 60 - 89 mL/min/1.73m2 Mildly to moderately decreased 45 - 59 mL/min/1.73m2 Moderately to severely decreased 30 - 44 mL/min/1.73m2 Severely decreased 15 - 29 mL/min/1.73m2 Kidney Failure < 15 mL/min/1.73m2 *Relative to young adult level Estimated glomerular filtration rate is determined by the 2020 CKD-EPI equation recommended by the National Kidney [employer] (A Unifying Approach to GFR Estimation: Recommendations of the NKF-ASK Task Force on Reassessing the Inclusion of Race in Diagnosing Kidney Disease, JASN 2020). The CKD-EPI equation should not be used for patients with unstable renal function and has not been validated in children and those over 70. Current interpretive data was last reviewed 2021. Blood 02/26/2025 8:10 AM CDT 02/26/2025 8:14 AM CDT Linda Taylor RESEARCH CENTER DIRECTOR LAB BLOOD ORDERABLES Rosa Maria l Result Performing Organization Address City/[facility] Co de Phone Number [facility] [place] [address] * T3, free (02/26/2025 8:10 AM CDT) Free T3 2.8 2.0 - 4.4 pg/mL Blood 02/26/2025 8:10 AM CDT 02/26/2025 8:14 AM CDT Linda Taylor RESEARCH CENTER DIRECTOR LAB BLOOD ORDERABLES Rosa Maria l Result Performing Organization Address [facility] Co de Phone Number [facility] [place] [address] * (ABNORMAL) TSH (02/26/2025 8:10 AM CDT) Thyroid Stimulating Hormone 4.79(H) 0.30 - 4.20 mcIUnit/mL Blood 02/26/2025 8:10 AM CDT 02/26/2025 8:14 AM CDT Linda Taylor RESEARCH CENTER DIRECTOR LAB BLOOD ORDERABLES Rosa Maria l Result Performing Organization Address City/[facility] Co de Phone Number [facility] [place] [address] * T4, free (02/26/2025 8:10 AM CDT) Free T4 0.90 0.90 - 1.70 ng/dL Blood 02/26/2025 8:10 AM CDT 02/26/2025 8:14 AM CDT Linda Taylor RESEARCH CENTER DIRECTOR LAB BLOOD ORDERABLES Rosa Maria l Result Performing Organization Address City/[facility] Co de Phone Number [facility] Department [place] [address] * Phosphorus (02/26/2025 8:10 AM CDT) Phosphorus, pl 3.7 2.3 - 4.5 mg/dL Blood 02/26/2025 8:10 AM CDT 02/26/2025 8:14 AM CDT Linda Taylor RESEARCH CENTER DIRECTOR LAB BLOOD ORDERABLES Rosa Maria l Result Performing Organization Address [facility] Co de Phone Number [facility] [place] [address] * (ABNORMAL) PTH (02/26/2025 8:10 AM CDT) PTH 92(H) 15 - 65 pg/mL Blood 02/26/2025 8:10 AM CDT 02/26/2025 9:31 AM CDT Linda Taylor RESEARCH CENTER DIRECTOR LAB BLOOD ORDERABLES Rosa Maria l Result Performing Organization Address City/[facility] Co de Phone Number [facility] [place] [address] * Magnesium (02/26/2025 8:10 AM CDT) Magnesium 1.8 1.4 - 2.5 mg/dL Blood 02/26/2025 8:10 AM CDT 02/26/2025 8:14 AM CDT Linda Taylor RESEARCH CENTER DIRECTOR LAB BLOOD ORDERABLES Rosa Maria l Result Performing Organization Address [facility] Co de Phone Number [facility] [place] [address] * Lactate dehydrogenase (LD) (02/26/2025 8:10 AM CDT) Lactate dehydrogenase (LDH) 199 100 - 250 Units/L Blood 02/26/2025 8:10 AM CDT 02/26/2025 8:14 AM CDT Linda Taylor RESEARCH CENTER DIRECTOR LAB BLOOD ORDERABLES Rosa Maria l Result Performing Organization Address [facility] de Phone Number [facility] Department [place] [address] * Creatine kinase (CK), total (02/26/2025 8:10 AM CDT) CK 92 30 - 200 Units/L Blood 02/26/2025 8:10 AM CDT 02/26/2025 8:14 AM CDT Linad Taylor RESEARCH CENTER DIRECTOR LAB BLOOD ORDERABLES Rosa Maria l Result Performing Organization Address [facility] de Phone Number [facility] [place] [address] * Bilirubin, direct (02/26/2025 8:10 AM CDT) Bilirubin, direct 0.2 0.1 - 0.3 mg/dL Blood 02/26/2025 8:10 AM CDT 02/26/2025 8:14 AM CDT Linda Taylor RESEARCH CENTER DIRECTOR LAB BLOOD ORDERABLES Rosa Maria l Result [facility] [place] [address] * (ABNORMAL) Comprehensive metabolic panel (02/26/2025 8:10 AM CDT) Sodium 140 135 - 145 mmol/L Potassium, pl 3.7 3.3 - 4.9 mmol/L [facility] Chloride 107 97 - 110 mmol/L [facility] CO2 25 22 - 32 mmol/L [facility] Anion gap 8 2 - 15 mmol/L [facility] BUN 13 6 - 25 mg/dL [facility] Creatinine 0.86 0.60 - 1.10 mg/dL [facility] Glucose 84 70 - 199 mg/dL [facility] Comment: Interpretive Data Fasting glucose >/= 126 mg/dl is diagnostic for diabetes. Fasting is defined as no caloric intake for at least 8 hours. Fasting glucose between 100 mg/dl to 125 mg/dl is diagnostic of prediabetes. In a patient with classic symptoms of hyperglycemia or hyperglycemic crisis, a random glucose >/= 200 mg/dl is diagnostic for diabetes. In the absence of unequivocal hyperglycemia, results should be confirmed by repeat testing. The classification and Diagnosis of Diabetes Diabetes Care 2021; 46: S19-S40. Current interpretive data was last revised 2022. Calcium 8.7 8.5 - 10.3 mg/dL [facility] Bilirubin, total 0.6 0.1 - 1.2 mg/dL [facility] Protein, pl 6.6 6.5 - 8.5 g/dL [facility] Albumin 3.8 3.5 - 5.0 g/dL [facility] Alk phos 171(H) 40 - 130 Units/L [facility] ALT 19 7 - 45 Units/L [facility] AST 24 10 - 45 Units/L [facility] Blood 02/26/2025 8:10 AM CDT 02/26/2025 8:14 AM CDT us Linda Taylor RESEARCH CENTER DIRECTOR LAB BLOOD ORDERABLES Rosa Maria l Result Performing Organization Address [facility]/ZIP Co de Phone Number [facility] [place] [address] * MRI Brain W WO Contrast (02/21/2025 2:30 PM CDT) Anatomical Region Laterality Modality Head and Neck N/A Magnetic Resonan ce 02/21/2025 3:01 PM CDT Impressions 02/21/2025 6:14 PM CDT No intracranial metastatic disease. Dictated by: Slava James MD The radiology attending physician has personally reviewed this study, and had reviewed and/or edited this written report and agrees with it. Electronically signed by: Lenny Patterson M.D. Narrative 02/21/2025 6:14 PM CDT EXAMINATION: Magnetic resonance imaging (MRI) of the brain and brainstem without and with contrast HISTORY: Metastatic pulmonary adenocarcinoma, on clinical trial TECHNIQUE: Multiplanar multi-weighted MRI of the brain and brainstem was performed without and with intravenous contrast using the general brain protocol. Contrast information: 14 mL Gadoterate Meglumine IV COMPARISON: 01/03/2025, 11/21/2024 FINDINGS: Nonspecific scattered T2 FLAIR hyperintensities likely represents sequela of chronic microvascular ischemic disease. The scalp and calvarium are normal. The superior sagittal sinus demonstrates normal venous flow. The corpus callosum is normal in shape and signal intensity. The posterior fossa is unremarkable. The pituitary and sella are normal. The brainstem and craniocervical junction are unremarkable. Diffusion weighted images reveal no hyperintensities to suggest acute cerebral infarction. The susceptibility weighted sequences reveal no evidence of acute or chronic hemorrhage. The ventricles are normal in size and position without evidence of hydrocephalus. The paranasal sinuses are normal. The visualized portions of the mastoids are unremarkable. The orbits appear normal. Normal flow voids are demonstrated in the carotid arteries and basilar artery. Within the visualized upper cervical spine, there is a disc bulge resulting in mild to moderate cervical stenosis at C3-C4. Procedure Note Lenny Patterson MD - 02/21/2025 EXAMINATION: Magnetic resonance imaging (MRI) of the brain and brainstem without and with contrast HISTORY: Metastatic pulmonary adenocarcinoma, on clinical trial TECHNIQUE: Multiplanar multi-weighted MRI of the brain and brainstem was performed without and with intravenous contrast using the general brain protocol. Contrast information: 14 mL Gadoterate Meglumine IV COMPARISON: 01/03/2025, 11/21/2024 FINDINGS: Nonspecific scattered T2 FLAIR hyperintensities likely represents sequela of chronic microvascular ischemic disease. The scalp and calvarium are normal. The superior sagittal sinus demonstrates normal venous flow. The corpus callosum is normal in shape and signal intensity. The posterior fossa is unremarkable. The pituitary and sella are normal. The brainstem and craniocervical junction are unremarkable. Diffusion weighted images reveal no hyperintensities to suggest acute cerebral infarction. The susceptibility weighted sequences reveal no evidence of acute or chronic hemorrhage. The ventricles are normal in size and position without evidence of hydrocephalus. The paranasal sinuses are normal. The visualized portions of the mastoids are unremarkable. The orbits appear normal. Normal flow voids are demonstrated in the carotid arteries and basilar artery. Within the visualized upper cervical spine, there is a disc bulge resulting in mild to moderate cervical stenosis at C3-C4. IMPRESSION: No intracranial metastatic disease. Dictated by: Slava James MD The radiology attending physician has personally reviewed this study, and had reviewed and/or edited this written report and agrees with it. Electronically signed by: Lenny Patterson M.D. Linda Taylor NP IM MRI PROCEDURES Final Result * CT chest abdomen pelvis with contrast (02/21/2025 1:32 PM CDT) Anatomical Region Laterality Modality Body N/A Computed Tomogra phy 02/21/2025 2:13 PM CDT Impressions 02/21/2025 2:13 PM CDT Stable posttreatment changes in the right lower lobe with tiny indeterminate pulmonary nodules. No evidence of progressive. Electronically signed by: Rolando Daniels M.D. Narrative 02/21/2025 2:13 PM CDT EXAMINATION: Computed tomography of the chest, abdomen and pelvis with intravenous contrast HISTORY: Lung cancer TECHNIQUE: Transaxial computed tomographic images of the chest, abdomen and pelvis were obtained with intravenous contrast according to the standard protocol after the uneventful administration of 67 mL Opti-Ray 350 intravenous contrast. COMPARISON: 01/03/2025 FINDINGS: Left internal jugular Port-A-Cath has tip in the superior cavoatrial junction. No supraclavicular or axillary lymphadenopathy. Small mediastinal nodes which are subcentimeter are unchanged. Heart size is normal, no pericardial effusion. There is some posttreatment change in the superior segment right lower lobe, stable. There is a background of emphysema with scattered tiny pulmonary nodules are indeterminate, but unchanged. There is small right-sided pleural fluid with rounded atelectasis at the right base, also unchanged. No new or suspicious pulmonary nodules or masses. No intrahepatic lesions or biliary ductal dilatation. There are cholecystectomy clips. Portal and superior mesenteric veins are normal. Spleen is normal. Pancreas is normal. Adrenals are normal. No renal lesions or hydronephrosis. Stomach and duodenal sweep is normal. No abdominal or pelvic lymphadenopathy. Uterus is normal. No adnexal lesions. No free intraperitoneal gas. There is tiny pelvic free intraperitoneal fluid. There is colonic diverticulosis without diverticulitis. No focal bowel wall thickening or obstruction. Bone windows demonstrate no lytic or blastic lesions. Procedure Note Rolando Daniels MD - 02/21/2025 EXAMINATION: Computed tomography of the chest, abdomen and pelvis with intravenous contrast HISTORY: Lung cancer TECHNIQUE: Transaxial computed tomographic images of the chest, abdomen and pelvis were obtained with intravenous contrast according to the standard protocol after the uneventful administration of 67 mL Opti-Ray 350 intravenous contrast. COMPARISON: 01/03/2025 FINDINGS: Left internal jugular Port-A-Cath has tip in the superior cavoatrial junction. No supraclavicular or axillary lymphadenopathy. Small mediastinal nodes which are subcentimeter are unchanged. Heart size is normal, no pericardial effusion. There is some posttreatment change in the superior segment right lower lobe, stable. There is a background of emphysema with scattered tiny pulmonary nodules are indeterminate, but unchanged. There is small right-sided pleural fluid with rounded atelectasis at the right base, also unchanged. No new or suspicious pulmonary nodules or masses. No intrahepatic lesions or biliary ductal dilatation. There are cholecystectomy clips. Portal and superior mesenteric veins are normal. Spleen is normal. Pancreas is normal. Adrenals are normal. No renal lesions or hydronephrosis. Stomach and duodenal sweep is normal. No abdominal or pelvic lymphadenopathy. Uterus is normal. No adnexal lesions. No free intraperitoneal gas. There is tiny pelvic free intraperitoneal fluid. There is colonic diverticulosis without diverticulitis. No focal bowel wall thickening or obstruction. Bone windows demonstrate no lytic or blastic lesions. IMPRESSION: Stable posttreatment changes in the right lower lobe with tiny indeterminate pulmonary nodules. No evidence of progressive. Electronically signed by: Rolando Daniels M.D. Linda Taylor RESEARCH CENTER DIRECTOR IMG CT PROCEDURES Final R esult * eGFR (02/18/2025 7:24 AM CDT) eGFR 85 >=60 mL/min/1. 73 m2 Comment: Interpretive Data Reference Interval Normal >/= 90 mL/min/1.73m2 Mildly decreased* 60 - 89 mL/min/1.73m2 Mildly to moderately decreased 45 - 59 mL/min/1.73m2 Moderately to severely decreased 30 - 44 mL/min/1.73m2 Severely decreased 15 - 29 mL/min/1.73m2 Kidney Failure < 15 mL/min/1.73m2 *Relative to young adult level Estimated glomerular filtration rate is determined by the 2020 CKD-EPI equation recommended by the National Kidney Foundation (A Unifying Approach to GFR Estimation: Recommendations of the NKF-ASK Task Force on Reassessing the Inclusion of Race in Diagnosing Kidney Disease, JASN 2020). The CKD-EPI equation should not be used for patients with unstable renal function and has not been validated in children and those over 70. Current interpretive data was last reviewed 2021. Blood 02/18/2025 7:24 AM CDT 02/18/2025 7:29 AM CDT Linda Taylor RESEARCH CENTER DIRECTOR LAB BLOOD ORDERABLES Rosa Maria l Result CLAIR LAYNE [facility] Department [place] [address] * Differential, auto (02/18/2025 7:24 AM CDT) Neutrophil abs 2.50 1.50 - 6.50 K/cumm Comment:Testing performed by : [facility], [address] [place] [phone] Lymphocyte abs 1.36 0.80 - 3.30 K/cumm [facility] Comment:Testing performed by : [facility], [address] [place] [phone] Monocyte abs 0.39 0.20 - 0.80 K/cumm [facility] Comment:Testing performed by : [facility], [address] [place] [address] Eosinophil abs 0.22 0.00 - 0.50 K/cumm [facility] Comment:Testing performed by : [facility], [address] [place] [address] Basophil abs 0.02 0.00 - 0.10 K/cumm [facility] Comment:Testing performed by : [facility], [address] [place] [address] Neutrophil pct 55.8 % [facility] Comment: Interpretive Data Percent cell count reference ranges are not reported, since discordance with absolute values may lead to misinterpretation of CBC data. Current Interpretive Data was last revised on 2017. Testing performed by: [facility], [address] [place] [phone] Lymphocyte pct 30.4 % [facility] Comment: Interpretive Data Percent cell count reference ranges are not reported, since discordance with absolute values may lead to misinterpretation of CBC data. Current Interpretive Data was last revised on 2017. Testing performed by: [facility], [address] [place] [phone] Monocyte pct 8.6 % [facility] Comment: Interpretive Data Percent cell count reference ranges are not reported, since discordance with absolute values may lead to misinterpretation of CBC data. Current Interpretive Data was last revised on 2017. Testing performed by: [facility], [address] [place] [phone] Eosinophil pct 4.9 % [facility] Comment: Interpretive Data Percent cell count reference ranges are not reported, since discordance with absolute values may lead to misinterpretation of CBC data. Current Interpretive Data was last revised on 2017. Testing performed by: [facility], [address] [place] [address] Basophil pct 0.4 % C[facility] Comment: Interpretive Data Percent cell count reference ranges are not reported, since discordance with absolute values may lead to misinterpretation of CBC data. Current Interpretive Data was last revised on 2017. Testing performed by: [facility], [address] [place] [address] Blood 02/18/2025 7:24 AM CDT 02/18/2025 7:28 AM CDT us Linda Taylor RESEARCH CENTER DIRECTOR LAB BLOOD ORDERABLES Rosa Maria dwyer Result CLAIR LAYNE [facility] Department [place] [address] * (ABNORMAL) CBC with auto differential (02/18/2025 7:24 AM CDT) WBC 4.49 3.80 - 9.90 K/cumm Comment:Testing performed by : [facility], [address] [place] [address] Hgb 12.5 11.9 - 15.5 g/dL CLAIR LAYNE Comment:Testing performed by : [facility], [address] [place] [address] Hct 37.5 35.6 - 45.5 % CLAIR [facility] Comment:Testing performed by : [facility], [address] [place] [address] Plt 221 150 - 400 K/cumm CERKAILASH [facility] Comment:Testing performed by : [facility], [address] [place] [address] MPV 6.7(L) 6.8 - 10.4 fL CLAIR LAYNE Comment:Testing performed by : [facility], [address] [place] [address] RBC 4.41 3.90 - 5.20 M/cumm CLAIR LAYNE Comment:Testing performed by : [facility], [address] [place], [place] [phone] MCV 85.0 81.3 - 96.4 fL CLAIR LAYNE Comment:Testing performed by : [facility], [address] [place], [place] [phone] MCH 28.3 27.1 - 33.[address] [facility] Comment:Testing performed by : [facility], [address] [place] [address] MCHC 33.3 32.3 - 35.7 g/dL CLAIR [facility] Comment:Testing performed by : [facility], [address] [place] [address] RDW CV 14.7 11.1 - 14.9 % CLAIR [facility] Comment:Testing performed by : [facility], [address] [place], [place] [phone] NRBC abs 0.00 0.00 - 0.01 K/cumm CLAIR [facility] Comment:Testing performed by : [facility], [address] [place], [place] [phone] Blood 02/18/2025 7:24 AM CDT 02/18/2025 7:28 AM CDT Linda Taylor RESEARCH CENTER DIRECTOR LAB BLOOD ORDERABLES Rosa Maria l Result Performing Organization Address City/[facility]/ZIP Co de Phone Number [facility] Department [place] [address] * T3, free (02/18/2025 7:24 AM CDT) Free T3 3.0 2.0 - 4.4 pg/mL Blood 02/18/2025 7:24 AM CDT 02/18/2025 7:29 AM CDT Linda Taylor RESEARCH CENTER DIRECTOR LAB BLOOD ORDERABLES Rosa Maria l Result [facility] [place] [address] * TSH (02/18/2025 7:24 AM CDT) Pathologist [facility] Thyroid Stimulating Hormone 2.97 0.30 - 4.20 mcIUnit/mL Blood 02/18/2025 7:24 AM CDT 02/18/2025 7:29 AM CDT Linda Taylor RESEARCH CENTER DIRECTOR LAB BLOOD ORDERABLES [place] [address] * T4, free (02/18/2025 7:24 AM CDT) [facility] Free T4 1.11 0.90 - 1.70 ng/dL Blood 02/18/2025 7:24 AM CDT 02/18/2025 7:29 AM CDT Linda Taylor RESEARCH CENTER DIRECTOR LAB BLOOD ORDERABLES Rosa Maria l Result Performing Organization Address City/[facility]/[place] [address] * Phosphorus (02/18/2025 7:24 AM CDT) Pathologist [facility] Phosphorus, pl 3.3 2.3 - 4.5 mg/dL Blood 02/18/2025 7:24 AM CDT 02/18/2025 7:29 AM CDT Linda Taylor RESEARCH CENTER DIRECTOR LAB BLOOD ORDERABLES Rosa Maria l Result [facility] [place] [address] * (ABNORMAL) PTH (02/18/2025 7:24 AM CDT) PTH 101(H) 15 - 65 pg/mL Blood 02/18/2025 7:24 AM CDT 02/18/2025 8:17 AM CDT Linda Taylor RESEARCH CENTER DIRECTOR LAB BLOOD ORDERABLES Rosa Maria l Result Performing Organization Address City/[facility] Co de Phone Number [facility] [place] [address] * Magnesium (02/18/2025 7:24 AM CDT) Pathologist [facility] Magnesium 2.0 1.4 - 2.5 mg/dL Blood 02/18/2025 7:24 AM CDT 02/18/2025 7:29 AM CDT Linda Taylor RESEARCH CENTER DIRECTOR LAB BLOOD ORDERABLES Rosa Maria l Result Performing Organization Address City/[facility] Co de Phone Number [facility] [place] [address] * Lactate dehydrogenase (LD) (02/18/2025 7:24 AM CDT) [facility] Lactate dehydrogenase (LDH) 206 100 - 250 Units/L Blood 02/18/2025 7:24 AM CDT 02/18/2025 7:29 AM CDT Linda Taylor RESEARCH CENTER DIRECTOR LAB BLOOD ORDERABLES Rosa Maria l Result Performing Organization Address City/[facility] Co de Phone Number [facility] [place] [address] * Creatine kinase (CK), total (02/18/2025 7:24 AM CDT) [facility] CK 102 30 - 200 Units/L Blood 02/18/2025 7:24 AM CDT 02/18/2025 7:29 AM CDT Linda Taylor RESEARCH CENTER DIRECTOR LAB BLOOD ORDERABLES Rosa Maria l Result [facility] Department [place] [address] * Bilirubin, direct (02/18/2025 7:24 AM CDT) Pathologist [facility] Bilirubin, direct 0.3 0.1 - 0.3 mg/dL Blood 02/18/2025 7:24 AM CDT 02/18/2025 7:29 AM CDT Linda Lorenzo Brandon LAB BLOOD ORDERABLES Rosa Maria l Result Performing Organization Address [facility] Co de Phone Number [facility] Department [place] [address] * (ABNORMAL) Comprehensive metabolic panel (02/18/2025 7:24 AM CDT) [facility] Sodium 141 135 - 145 mmol/L Potassium, pl 4.1 3.3 - 4.9 mmol/L [facility] Chloride 109 97 - 110 mmol/L [facility] CO2 25 22 - 32 mmol/L [facility] Anion gap 7 2 - 15 mmol/L [facility] BUN 12 6 - 25 mg/dL [facility] Creatinine 0.79 0.60 - 1.10 mg/dL [facility] Glucose 80 70 - 199 mg/dL [facility] Comment: Interpretive Data Fasting glucose >/= 126 mg/dl is diagnostic for diabetes. Fasting is defined as no caloric intake for at least 8 hours. Fasting glucose between 100 mg/dl to 125 mg/dl is diagnostic of prediabetes. In a patient with classic symptoms of hyperglycemia or hyperglycemic crisis, a random glucose >/= 200 mg/dl is diagnostic for diabetes. In the absence of unequivocal hyperglycemia, results should be confirmed by repeat testing. The classification and Diagnosis of Diabetes Diabetes Care 2021; 46: S19-S40. Current interpretive data was last revised 2022. Calcium 8.8 8.5 - 10.3 mg/dL [facility] Bilirubin, total 0.7 0.1 - 1.2 mg/dL [facility] Protein, pl 6.7 6.5 - 8.5 g/dL [facility] Albumin 3.9 3.5 - 5.0 g/dL [facility] Alk phos 179(H) 40 - 130 Units/L [facility] ALT 23 7 - 45 Units/L [facility] AST 26 10 - 45 Units/L [facility] Blood 02/18/2025 7:24 AM CDT 02/18/2025 7:29 AM CDT us Linda Taylor RESEARCH CENTER DIRECTOR LAB BLOOD ORDERABLES Rosa Maria dwyer Result [facility] Department [place] [address] * (ABNORMAL) Urinalysis reflex to microscopic and culture Urine (02/18/2025 7:21 AM CDT) Color, ur Straw Yellow Clarity, ur Clear Clear [facility] Specific gravity, ur 1.010 1.003 - 1.030 [facility] pH, urine 7.0 [facility] Comment: Interpretive Data U rine pH is affected by diet, medications, systemic acid-base disturbances, and renal tubular function. pH may affect urinary stone formation. For example, urine pH below 6.0 may help reduce the tendency for calcium phosphate stones and pH greater than 6.0 may reduce the tendency for uric acid stone formation. Source: [facility] [employer] Current Interpretive Data was last revised on 2017 Protein, ur ql Negative Negative [facility] Glucose, ur ql Negative Negative [facility] Ketones, ur Negative Negative [facility] Bilirubin, ur Negative Negative [facility] Blood, ur Trace(A) Negative [facility] Urobilinogen, ur <2.0 <2.0 mg/dL [facility] Nitrite, ur Negative Negative [facility] Leukocyte esterase, ur Negative [facility] UA reflex comment Reflex to microscopic UA will be performed. [facility] Urine 02/18/2025 7:21 AM CDT 02/18/2025 7:21 AM CDT Linda Taylor RESEARCH CENTER DIRECTOR LAB MICROBIOLOGY - GENERA L ORDERABLES Final Result Performing Organization Address [facility] Co de Phone Number [facility] Department [place] [address] * (ABNORMAL) Urinalysis, microscopic only (02/18/2025 7:21 AM CDT) WBC, ur 0-5 0 - 5 /HPF RBC, ur 0-2 0 - 2 /HPF [facility] Epithelial cells, squamous, ur 1-5 0 - 5 /HPF [facility] Bacteria, ur Trace(A) [facility] Culture Reflex Comment Reflex conditions for urine culture (WBC >10) not met. [facility] Urine 02/18/2025 7:21 AM CDT 02/18/2025 7:21 AM CDT Linda Taylor RESEARCH CENTER DIRECTOR LAB URINE ORDERABLES Rosa Maria l Result Performing Organization Address [facility] Co de Phone Number [facility] [place] [address] * eGFR (02/04/2025 7:13 AM CDT) eGFR >90 >=60 mL/min/1. 73 m2 Comment: Interpretive Data Reference Interval Normal >/= 90 mL/min/1.73m2 Mildly decreased* 60 - 89 mL/min/1.73m2 Mildly to moderately decreased 45 - 59 mL/min/1.73m2 Moderately to severely decreased 30 - 44 mL/min/1.73m2 Severely decreased 15 - 29 mL/min/1.73m2 Kidney Failure < 15 mL/min/1.73m2 *Relative to young adult level Estimated glomerular filtration rate is determined by the 2020 CKD-EPI equation recommended by the National Kidney Foundation (A Unifying Approach to GFR Estimation: Recommendations of the NKF-ASK Task Force on Reassessing the Inclusion of Race in Diagnosing Kidney Disease, JASN 2021). The CKD-EPI equation should not be used for patients with unstable renal function and has not been validated in children and those over 70. Current interpretive data was last reviewed 2021. Blood 02/04/2025 7:13 AM CDT 02/04/2025 7:23 AM CDT us Linda Taylor RESEARCH CENTER DIRECTOR LAB BLOOD ORDERABLES Rosa Maria dwyer Result [facility] Department [place] [address] * Differential, auto (02/04/2025 7:13 AM CDT) Neutrophil abs 2.52 1.50 - 6.50 K/cumm Comment:Testing performed by : [facility], [address] [place], [place] [phone] Lymphocyte abs 1.26 0.80 - 3.30 K/cumm CERNER [facility] Comment:Testing performed by : [facility], [address] [place], [place] [phone] Monocyte abs 0.37 0.20 - 0.80 K/cumm [facility] Comment:Testing performed by : [facility], [address] [place], [place] [phone] Eosinophil abs 0.19 0.00 - 0.50 K/cumm [facility] Comment:Testing performed by : [facility], [address] [place], [place] [phone] Basophil abs 0.03 0.00 - 0.10 K/cumm [facility] Comment:Testing performed by : [facility], [address] [place], [place] [phone] Neutrophil pct 57.7 % CERNER [facility] Comment: Interpretive Data Percent cell count reference ranges are not reported, since discordance with absolute values may lead to misinterpretation of CBC data. Current Interpretive Data was last revised on 2017. Testing performed by: [facility], [address] [place], [place] [phone] Lymphocyte pct 28.8 % CLAIR LAYNE Comment: Interpretive Data Percent cell count reference ranges are not reported, since discordance with absolute values may lead to misinterpretation of CBC data. Current Interpretive Data was last revised on 2017. Testing performed by: [facility], [address] [place] [phone] Monocyte pct 8.5 % CLAIR LAYNE Comment: Interpretive Data Percent cell count reference ranges are not reported, since discordance with absolute values may lead to misinterpretation of CBC data. Current Interpretive Data was last revised on 2017. Testing performed by: [facility], [address] [place] [phone] Eosinophil pct 4.3 % CLAIR LAYNE Comment: Interpretive Data Percent cell count reference ranges are not reported, since discordance with absolute values may lead to misinterpretation of CBC data. Current Interpretive Data was last revised on 2017. Testing performed by: [facility], [address] [place] [phone] Basophil pct 0.7 % CLAIR LAYNE Comment: Interpretive Data Percent cell count reference ranges are not reported, since discordance with absolute values may lead to misinterpretation of CBC data. Current Interpretive Data was last revised on 2017. Testing performed by: [facility], [address] [place] [phone] Blood 02/04/2025 7:13 AM CDT 02/04/2025 7:17 AM CDT us Linda Taylor RESEARCH CENTER DIRECTOR LAB BLOOD ORDERABLES Rosa Maria l Result CLAIR LAYNE [facility] Department [place] [address] * (ABNORMAL) CBC with auto differential (02/04/2025 7:13 AM CDT) WBC 4.37 3.80 - 9.90 K/cumm Comment:Testing performed by : [facility], [address] [place] [address] Hgb 12.1 11.9 - 15.5 g/dL [facility] Comment:Testing performed by : [facility], [address] [place], [place] [phone] Hct 35.7 35.6 - 45.5 % C[facility]ER [facility] Comment:Testing performed by : [facility], [address] [place], [place] [phone] Plt 265 150 - 400 K/cumm [facility] Comment:Testing performed by : [facility], [address] [place], [place] [phone] MPV 6.6(L) 6.8 - 10.4 fL [facility] Comment:Testing performed by : [facility], [address] [place], [place] [phone] RBC 4.20 3.90 - 5.20 M/cumm [facility] Comment:Testing performed by : [facility], [address] [place], [place] [phone] MCV 85.1 81.3 - 96.4 fL [facility] Comment:Testing performed by : [facility], [address] [place], [place] [phone] MCH 28.7 27.1 - 33.3 pg [facility] Comment:Testing performed by : [facility], [address] [place] [address] MCHC 33.7 32.3 - 35.7 g/dL [facility] Comment:Testing performed by : [facility], [address] [place] [address] RDW CV 14.6 11.1 - 14.9 % [facility]ER [facility] Comment:Testing performed by : [facility], [address] [place] [address] NRBC abs 0.00 0.00 - 0.01 K/cumm [facility]ER [facility] Comment:Testing performed by : [facility], [address] [place] [address] Blood 02/04/2025 7:13 AM CDT 02/04/2025 7:17 AM CDT Linda Taylor RESEARCH CENTER DIRECTOR LAB BLOOD ORDERABLES Rosa Maria l Result Performing Organization Address [facility] [facility] Co de Phone Number [facility] [place] [address] * T3, free (02/04/2025 7:13 AM CDT) Free T3 3.0 2.0 - 4.4 pg/mL Blood 02/04/2025 7:13 AM CDT 02/04/2025 7:23 AM CDT Linda Taylor RESEARCH CENTER DIRECTOR LAB BLOOD ORDERABLES Rosa Maria l Result Performing Organization Address [facility] de Phone Number [facility] [place] [address] * TSH (02/04/2025 7:13 AM CDT) Thyroid Stimulating Hormone 2.94 0.30 - 4.20 mcIUnit/mL Blood 02/04/2025 7:13 AM CDT 02/04/2025 7:23 AM CDT Linda Taylor RESEARCH CENTER DIRECTOR LAB BLOOD ORDERABLES Rosa Maria l Result Performing Organization Address [facility] de Phone Number [facility] [place] [address] * T4, free (02/04/2025 7:13 AM CDT) Free T4 1.13 0.90 - 1.70 ng/dL Blood 02/04/2025 7:13 AM CDT 02/04/2025 7:23 AM CDT Linda Taylor RESEARCH CENTER DIRECTOR LAB BLOOD ORDERABLES Rosa Maria l Result Performing Organization Address [facility] Co de Phone Number [facility] [place] [address] * Phosphorus (02/04/2025 7:13 AM CDT) Pathologist [facility] Phosphorus, pl 3.3 2.3 - 4.5 mg/dL Blood 02/04/2025 7:13 AM CDT 02/04/2025 7:23 AM CDT Linda Taylor RESEARCH CENTER DIRECTOR LAB BLOOD ORDERABLES Rosa Maria l Result Performing Organization Address [facility] [place] [address] * (ABNORMAL) PTH (02/04/2025 7:13 AM CDT) [facility] PTH 97(H) 15 - 65 pg/mL Blood 02/04/2025 7:13 AM CDT 02/04/2025 8:38 AM CDT Linda Taylor RESEARCH CENTER DIRECTOR LAB BLOOD ORDERABLES Rosa Maria l Result Performing Organization Address [facility] Co de Phone Number [facility] [place] [address] * Magnesium (02/04/2025 7:13 AM CDT) [facility] Magnesium 1.9 1.4 - 2.5 mg/dL Blood 02/04/2025 7:13 AM CDT 02/04/2025 7:23 AM CDT Linda Taylor RESEARCH CENTER DIRECTOR LAB BLOOD ORDERABLES Rosa Maria l Result Performing Organization Address City/[facility] Co de Phone Number [facility] [place] [address] * Lactate dehydrogenase (LD) (02/04/2025 7:13 AM CDT) [facility] Lactate dehydrogenase (LDH) 201 100 - 250 Units/L Blood 02/04/2025 7:13 AM CDT 02/04/2025 7:23 AM CDT Linda Taylor RESEARCH CENTER DIRECTOR LAB BLOOD ORDERABLES Rosa Maria l Result Performing Organization Address [facility] Co de Phone Number [facility] [place] [address] * Creatine kinase (CK), total (02/04/2025 7:13 AM CDT) [facility] CK 83 30 - 200 Units/L Blood 02/04/2025 7:13 AM CDT 02/04/2025 7:23 AM CDT Linda Taylor RESEARCH CENTER DIRECTOR LAB BLOOD ORDERABLES Rosa Maria l Result Performing Organization Address [facility] de Phone Number [facility] [place] [address] * Bilirubin, direct (02/04/2025 7:13 AM CDT) [facility] Bilirubin, direct 0.3 0.1 - 0.3 mg/dL Blood 02/04/2025 7:13 AM CDT 02/04/2025 7:23 AM CDT Linda Taylor RESEARCH CENTER DIRECTOR LAB BLOOD ORDERABLES Rosa Maria l Result Performing Organization Address [facility] Co de Phone Number [facility] [place] [address] * (ABNORMAL) Comprehensive metabolic panel (02/04/2025 7:13 AM CDT) [facility] Sodium 141 135 - 145 mmol/L Potassium, pl 3.9 3.3 - 4.9 mmol/L [facility] Chloride 109 97 - 110 mmol/L [facility] CO2 23 22 - 32 mmol/L [facility] Anion gap 9 2 - 15 mmol/L [facility] BUN 18 6 - 25 mg/dL [facility] Creatinine 0.72 0.60 - 1.10 mg/dL [facility] Glucose 88 70 - 199 mg/dL [facility] Comment: Interpretive Data Fasting glucose >/= 126 mg/dl is diagnostic for diabetes. Fasting is defined as no caloric intake for at least 8 hours. Fasting glucose between 100 mg/dl to 125 mg/dl is diagnostic of prediabetes. In a patient with classic symptoms of hyperglycemia or hyperglycemic crisis, a random glucose >/= 200 mg/dl is diagnostic for diabetes. In the absence of unequivocal hyperglycemia, results should be confirmed by repeat testing. The classification and Diagnosis of Diabetes Diabetes Care 202; 46: S19-S40. Current interpretive data was last revised 2022. Calcium 8.6 8.5 - 10.3 mg/dL [facility] Bilirubin, total 0.4 0.1 - 1.2 mg/dL [facility] Protein, pl 6.7 6.5 - 8.5 g/dL [facility] Albumin 3.8 3.5 - 5.0 g/dL [facility] Alk phos 172(H) 40 - 130 Units/L [facility] ALT 16 7 - 45 Units/L [facility] AST 23 10 - 45 Units/L [facility] Blood 02/04/2025 7:13 AM CDT 02/04/2025 7:23 AM CDT us Linda Taylor RESEARCH CENTER DIRECTOR LAB BLOOD ORDERABLES Rsoa Maria l Result [facility] Department [place] [address] * (ABNORMAL) Urinalysis reflex to microscopic and culture Urine (02/04/2025 7:04 AM CDT) Color, ur Straw Yellow Clarity, ur Clear Clear [facility] Specific gravity, ur 1.013 1.003 - 1.030 [facility] pH, urine 6.5 [facility] Comment: Interpretive Data U rine pH is affected by diet, medications, systemic acid-base disturbances, and renal tubular function. pH may affect urinary stone formation. For example, urine pH below 6.0 may help reduce the tendency for calcium phosphate stones and pH greater than 6.0 may reduce the tendency for uric acid stone formation. Source: [facility] Current Interpretive Data was last revised on 2017 Protein, ur ql Negative Negative [facility] Glucose, ur ql Negative Negative [facility] Ketones, ur Negative Negative [facility] Bilirubin, ur Negative Negative [facility] Blood, ur Trace(A) Negative [facility] Urobilinogen, ur <2.0 <2.0 mg/dL [facility] Nitrite, ur Negative Negative [facility] Leukocyte esterase, ur Negative [facility] UA reflex comment Reflex to microscopic UA will be performed. [facility] Urine 02/04/2025 7:04 AM CDT 02/04/2025 7:32 AM CDT Linda Taylor RESEARCH CENTER DIRECTOR LAB MICROBIOLOGY - GENERA L ORDERABLES Final Result Performing Organization Address City/[facility]/ZIP Co de Phone Number [facility] [place] [address] * Urinalysis, microscopic only (02/04/2025 7:04 AM CDT) WBC, ur 0-5 0 - 5 /HPF RBC, ur 0-2 0 - 2 /HPF [facility] Epithelial cells, squamous, ur 1-5 0 - 5 /HPF [facility] Culture Reflex Comment Reflex conditions for urine culture (WBC >10) not met. [facility] Urine 02/04/2025 7:04 AM CDT 02/04/2025 7:32 AM CDT Linda Taylor RESEARCH CENTER DIRECTOR LAB URINE ORDERABLES Rosa Maria l Result [facility] [place] [address] * (ABNORMAL) Hepatitis C antibody Blood (08/28/2024 11:20 AM MATTRESS FILLER) Hep C Ab Reactive( A) Nonreactive Comment: Reactive for HCV antibodies. This may represent current or past HCV infection. Supplemental molecular testing will be automatically performed to determine current infection status in accordance with current CDC screening recommendations. Current interpretive data was last revised on 22 Blood 08/28/2024 11:2 0 AM MATTRESS FILLER 08/28/2024 1:35 PM MATTRESS FILLER Linda Taylor NP LAB MICROBIOLOGY - GENERA L ORDERABLES Final Result [facility] [place] [address] * COLONOSCOPY (04/25/2020) Scribed HM Colonoscopy Normal Historical Provider HEALTH MAINTENANCE Final Result from Last 3 Months or Most Recently Relevant to Health Maintenance Insurance IDPA [facility] MEDICARE ADVANTAGE MEDICARE RESEARCH [facility] MEDICARE ADVANTAGE IDPA [facility] MEDICARE ADVANTAGE [facility] MEDICARE ADVANTAGE IDPA Advance Directives For more information, please contact: [phone] * Full Code (Latest Code Status on File) Date Activated Date Inactivated Comments 08/31/2024 10:50 AM 09/01/2024 5:21 AM * Full Code Date Activated Date Inactivated Comments 06/21/2024 9:00 AM 06/22/2024 5:11 AM Care Teams Field Crop Farmworker Relationship Specialty Start Date End Date Tala Hill PA [facility] [address] [address] PCP - General Family Medicine 07/10/24 Wes Quintero MD Medical Oncologist/Solid Waste Disposal Manager Medical Oncology 04/24/24
--- OUTSIDE RECORDS SUMMARY | 2025-05-06 12:24 | XMS_ITS ---
Author Organization [address] Address [address] [place] [id number] Care Team Providers Care Driller Machine Name Role Phone Wes Quintero MD Unavailable Tala Hill Primary Care Provider + Active Problems Problem Noted Date Diagnosed Date Mixed hyperlipidemia 07/10/2024 Port-A-Cath in place 05/10/2024 Primary cancer of right lower lobe of lung 05/02 Bone pain 03/09/2024 Chronic obstructive pulmonary disease 03/09/2024 Assessment & Plan (07/10/2024 12:58 PM BLOOD BANK SUPERVISOR): Chronic, stable. Continue inhalers as prescribed Referral to pulmonology Diverticulosis of colon 03/09/2024 Insomnia 03/09/2024 Primary small cell malignant neoplasm of lung, s tage 4 03/09/2024 Hyperglycemia 12/27/2023 Bilateral chronic knee pain 06/22/2022 Chronic pain of multiple joints 06/22/2022 Fibromyalgia 06/22/2022 Assessment & Plan (07/10/2024 12:58 PM BLOOD BANK SUPERVISOR): Chronic pain, stable. Discussed adding gabapentin 100 mg, mainly for nightly use. Chronic opiate use, managed by Oncology Chronic, continuous use of opioids 06/22/2022 DDD (degenerative disc disease), lumbosacral Lumbar facet arthropathy 06/22/2022 Osteopenia 06/28/2019 Primary adenocarcinoma of right lung 05/17/2018 Assessment & Plan (07/10/2024 1:01 PM BLOOD BANK SUPERVISOR): Initially diagnosed February of 2018 Status post thoracotomy, chemo, radiation Currently on a break from systemic treatment Following with Oncology Idjjd-2-osdmspkyzom deficiency 02/13/2015 Assessment & Plan (07/10/2024 12:58 PM BLOOD BANK SUPERVISOR): Chronic/stable Family history of alpha 1 antitrypsin in mother COPD currently managed with Anoro inhaler Has albuterol inhaler but has not used in some time Referral to pulmonology Current Treatment and Therapy Plans [id number] - [facility] - Phase 1 - [id number] - Dose Expansion - Cohort A Monotherapy - [id number]* Plan Start Date:08/30/2024 Plan Provider:Linda Taylor AUTOMOTIVE ALIGNMENT SPECIALIST Linked Problems Primary adenocarcinoma of ri ght lung (HCC)Primary cancer of right lower lobe of lung (HCC)Primary small cell malignant neoplasm of lung, stage 4 (HCC) Treatment Medications Current Day (Day 8 , Cycle 12 - Planned for 05/08/2025) Next Day (Day 15, Cycle 12 - Planned for 05/15/2025) dexAMETHasone (DECADRON)[facility] (/[id number]) [id number] (formulation B) IVPB in 600 mL (ANTI-LAG-3)[facility] [id number] (FORMULATION B) (/[id number])INV- [facility] dextrose 5% in water (D5W) INV-[facility] [id number] (/[id number]) 600 mg, [id number] IV stabilizier solution 30 mL in dextrose 5% 555 mL IVPBIN-[facility] dextrose 5% in water (D5W) flush [facility] [id number] (/[id number]) 600 mg, [id number] IV stabilizier solution 30 mL in dextrose 5% 555 mL IVPBINV-[facility] dextrose 5% in water (D5W) flush IVPB 25 mL IV Maintenance Therapy Plan* Plan Start Date:02/11/2025 Plan Provider:Wes Quintero MD Linked Problems Primary adenocarcinoma of ri ght lung (HCC) Treatment Medications No medications scheduled. Other Current Plans Alteplase (CATHFLO ACTIVASE) - orders for occluded catheters* Plan Start Date: 05/10/2024 Plan Provider:Wes Quintero MD Linked Problems Port-A-Cath in place Treatment Medications No medications scheduled. Past Treatment and Therapy Plans Oncology Chemotherapy Treatment Plan Name Start Date Discontinue Date Treatment Medications Discontinue Reason Plan Provider Cycles Pembrolizumab / Pemetrexed / CARBOplatin 21 day cycles - Non-Small Cell Lung 4 08/16/2024 CARBOplatin (PARAPLATIN)p embrolizumab (KEYTRUDA)PEM Etrexed (ALIMTA) Progression Casa rn, MD Wes 5 of 24 cycles completed Lifetime Dose Tracking * Chemical Lifetime Dose Automatic Entry Manual Entr y DLP 4,624 mGycm 4,624 mGycm 0 mGycm CTDIvol 689 mGy 689 mGy 0 mGy
--- OUTSIDE RECORDS SUMMARY | 2025-05-06 12:24 | XMS_ITS | Data Portability ---
Author Organization [place] - [facility] [employer], Main Office Address [address] [place] [address] Assessment Encounter Date Assessment Date Assessment LastModified by Organization Details LastModified Time 12/10/2024 12/10/2024 59-year-old female presents for follow-up of her left hip status post closed reduction percutaneous pinning on 12/03/2024. She has improved pain still having some soreness currently rated as 5/10. She had an area of blistering and the skin with the tape was. Incisions are clean dry intact without any signs of infection, she does have the superficial area of blistering as previously described. She has no pain with gentle hip range of motion. She is ambulating with a walker. She is 1 week out from her surgery and progressing as expected. We will give her order for Bailey 10/27/2024. She is currently on oxycodone for her cancer diagnosis. Sutures were removed today we redressed with Steri-Strips and a Band-Aid over the blistering. We will see her back in 2-3 weeks with repeat x-rays. Not available 12/10/2024 12:52:17 01/01/2025 01/01/2025 59-year-old patient presents today for follow-up of her left hip status post closed reduction percutaneous pinning on 12/03/2024. She is still having pain with bearing weight and soreness around the incisions. She is taking pain medications daily but is almost out. She has stage 4 lung cancer and states her oncologist states all pain control must be handled by our office at this time. She has been working with [employer] health a few times a week and feels like she is making progress. imaging: X-rays reviewed of the left hip show [address] with maintenance of alignment, no movement. Incisions are clean dry intact without any signs of infection, healing well. She has no pain with gentle hip range of motion. Tenderness with palpitation along lateral hip. She is ambulating with a walker. We will refill her order for Bailey as her oncologist will not refill her oxycodone for her cancer diagnosis. We will have her continue working with PT. We will see her back in 2-3 months or sooner if needed. Not available 01/01/2025 15:04:09 03/01/2025 03/01/2025 59-year-old patient presents today for follow-up of her left hip status post closed reduction percutaneous pinning on 12/03/2024, and new problem of right thigh pain that has been going on for a few weeks. She still has discomfort in the left hip when walking her dogs. She states the dogs drag her and tweak the hip. She is now having pain in the right thigh over the quad. She is taking pain medications daily for stage 4 lung cancer. She is unable to take nsaids. She completed PT after her surgery and states she does not need to continue with that. imaging: X-rays reviewed of the left hip show [address] with maintenance of alignment, no movement. Mild degenerative osteoarthritic changes. Right hip shows no acute abnormality or fracture. Mild degenerative osteoarthritic changes. Physical exam: left hip Incisions are well healed. She has no pain with gentle hip range of motion. Tenderness with palpitation along lateral hip. Tenderness over anterior right thigh, no issues with ROM. We discussed that for the left hip she has tried physical therapy in medications, we could try a cortisone injection to see if that relieves her pain. She is not interested in that today. For the right thigh we discussed that the pain over her quad would likely get better with PT exercises and stretches. She does not want to attend PT so we discussed different stretches and exercises she can work on on her own. She states she will call if she wants further treatment in the future. Not available 03/01/2025 10:49:38 04/05/2025 04/05/2025 59-year-old patient presents today for follow-up of her left hip status post closed reduction percutaneous pinning on 12/03/2024. She still has discomfort in the left hip. She states she is also having pain over the anterior thigh after stepping out of the car into a hole last month. She state she has 5 large dogs that drag her and tweak the hip. She is undergoing treatment for stage 4 lung cancer. She is taking pain medications daily given to her by her oncologist but states she is having to double up on doses now. She is unable to take nsaids. She states she did PT after her surgery but today states she missed many of her sessions. Physical exam: Left hip Incisions are well healed. No redness, warmth, swelling. Pain with gentle hip range of motion. Tenderness with palpitation along anterior thigh hip. She states she is in a lot of pain and would like to try a cortisone injection. We can order that for her, but we also recommend returning to PT. She states she is willing to go to more sessions. We will have her return to see Dr. Durand at her next appointment. Not available 04/05/2025 22:35:06 05/01/2025 05/01/2025 60-year-old female presents for follow-up of her left hip. She has a history of a closed reduction percutaneous pinning for femoral neck fracture earlier this year. She has healed up from that and is ambulating, but still reports having significant pain in the groin radiating down the leg. She does have a history of stage IV cancer and was being managed for her pain by the oncologist, but recently she says they stopped doing that. We previously ordered physical therapy which she is starting today and also send her for a cortisone injection for the hip which she is getting next week. She has no pain with logroll. She does have pain with range of motion of the hip. 5- out of 5 strength. She has no pain over the lateral hip her previous incisions are well healed She should continue with the physical therapy and the cortisone injection appointment. I offered her a pain management referral to manage her medications but she declined that. She may follow-up with us as needed. Not available 05/01/2025 10:29:26 Plan of Treatment Reminders Order Date Submit Date Provider Last Modified By Organization Details Last Modified Time Details Appointments None recorded. Lab None recorded. Referral physical therapist referral - Please contact pt to schedule apt for L hip. Thanks 2024 025 [facility] [place], [address], [place], [address], 5 11:06:48 Procedures injection, hip, fluoro guidance (PROC) - 4cc 1% Lidocaine & 40mg Depomedrol Precertifi cation Required?: N 2024 025 [facility], [address] [facility], [place], [address], 18:15:27 Surgeries None recorded. Imaging XR, hip + pelvis, unilateral 2024 025 [facility], [address], [place], [address], 09:34:17 XR, hip + pelvis, unilateral 2024 025 [email or web address] [place], [address] [facility], [address], [place], [address], 08:29:28 Medication Orders hydrocodon e 5 mg-acetami nophen 325 [address] tablet [address] [facility]armacy #[id number], [address], [place], [address], 15:05:20 hydrocodon e 5 mg-acetami nophen 325 mg tablet [address] [facility]/Pharmacy #[id number], [address], [place], [address], 12:52:41 Patient TargetsNo targets recorded. Patient InstructionsNo instructions recorded. Reason for Referral Physical Therapist Referral for Pain of hip region L hip Please contact pt to schedule apt for L hip. Thanks Referring Physician: Sandy Cameron, Orthopedic Surgery, Encounter Date: 04/05/2025 Results Created Date Observation Date Name Description Value Unit Range Abnormal Flag Note LastModifiedBy Organization Detail LastModifiedTime 01/02/20 25 XR, hip + pelvi s, unila teral No observ ation record ed. [email or web address] [facility] [place] [address] [facility], [address], [place], [address], 03/01/2025 08:29:36 03/01/20 25 XR, hip + pelvi s, unila teral No observ ation record ed. [facility] [place] [address], [place], [address], 03/01/2025 10:41:52 Result Notes None recorded. Problems Name Problem SNOMED Code Status Onset Date Resolution Date Notes Provider Name and Address Organization Details Recorded Time Pain of hip region 20486512 Active 2024 Leora Rinaldi ATC L null, [facility] [employer] [facility] 5 09:16:53 Pain of hip region 81284642 Active 2024 BRAYDEN Albrecht, [employer] [facility] [employer] [facility] 5 10:20:23 Osteoarthritis of hip 555969530 Active 2024 Leora Rinaldi ATC L null, [employer] [facility] [employer] [facility] 5 09:18:35 Problem Notes None recorded. Procedures Surgical History Date Name Laterality Status Provider Name and Address Organization Details Recorded Time 3 hysterectomy completed BRAYDEN Albrecht [employer] - [facility] [employer] [facility] 12/10/2024 12:08:32 Lung Surgery completed BRAYDEN Albrecht [employer] - S [employer] [facility] 12/10/2024 12:08:00 Imaging Results None recorded. Procedure Notes None recorded. Medical Equipment None Reported. Allergies Allergen ID Allergen Name Allergen Category Reaction Reaction Severity Criticality Documentation Date Start Date Code Code System Note Provider Name and Address Organization Details Recorded Time 95907 morphine medicatio n hives Not available Not available 12/10/2024 7052 RxNorm BRAYDEN Albrecht, [facility] [employer] [facility] 5 12:05:12 Medications Name Sig Start Date Stop Date Status Note LastModified by Organization Details LastModified Time cyclobenzap rine 10 mg tablet TAKE 1 TABLET BY MOUTH THREE TIMES A DAY NEEDED FOR MUSCLE SPASMS 12/10 completed Not Available Not Available Not Available prednisone 10 mg tablet PLEASE SEE ATTACHED FOR DETAILED DIRECTION S 12/10 completed Not Available Not Available Not Available ipratropium 0.5 mg-albutero l 3 mg (2.5 mg base)/3 mL nebulizatio n soln INHALE 3ML VIA NEBULIZAT ION EVERY 8 HOURS NEEDED FOR WHEEZING OR SHORTNESS OF BREATH active Not Available Not Available No t Available hydrocodone 5 mg-acetamin ophen 325 mg tablet TAKE 1 TABLET BY MOUTH EVERY 6 HOURS active Not Available Not Available No t Available ondansetron HCl 4 mg tablet TAKE 1 TABLET BY MOUTH EVERY 8 HOURS NEEDED FOR NAUSEA AND VOMITING active Not Available Not Available No t Available prednisone 20 mg tablet TAKE 1 TABLET BY MOUTH ONCE DAILY FOR 5 DAYS active Not Available Not Available No t Available lidocaine-p rilocaine 2.5 %-2.5 % topical cream APPLY 1 APPLICATI ON ONTO THE PORT AREA PRIOR TO EACH PORT ACCESS NEEDED active Not Available Not Available No t Available famotidine 20 mg tablet TAKE 1 TABLET BY MOUTH EVERY 12 HOURS FOR 5 DAYS active Not Available Not Available No t Available esomeprazol e magnesium 40 mg capsule,del ayed release TAKE 1 CAPSULE BY MOUTH EVERY DAY BEFORE BREAKFAST active Not Available Not Available No t Available amoxicillin 250 mg capsule TAKE 2 CAPSULES BY MOUTH 3 TIMES A DAY FOR 7 DAYS 12/10 completed Not Available Not Available Not Available gabapentin 100 mg capsule TAKE 1 CAPSULE BY MOUTH 3 TIMES A DAY active Not Available Not Available No t Available levofloxaci n 500 mg tablet TAKE 1 TABLET BY MOUTH EVERY DAY 12/10 completed Not Available Not Available Not Available levofloxaci n 750 mg tablet TAKE 1 TABLET BY MOUTH EVERY DAY 12/10 completed Not Available Not Available Not Available albuterol sulfate HFA 90 mcg/actuati on aerosol inhaler INHALE 2 PUFFS EVERY 4 HOURS NEEDED FOR WHEEZING OR SHORTNESS OF BREATH active Not Available Not Available No t Available diazepam 5 mg tablet TAKE 1 TABLET BY MOUTH ONCE FOR 1 DOSE 1 HOUR PRIOR TO MRI active Not Available Not Available No t Available oxycodone 5 mg tablet TAKE 1 TO 2 TABLETS (5-10 MG TOTAL) BY MOUTH EVERY 4 HOURS NEEDED FOR PAIN active Not Available Not Available No t Available Anoro Ellipta 62.5 mcg-25 mcg/actuati on powder for inhalation INHALE 1 PUFF BY MOUTH ONCE DAILY active Not Available Not Available No t Available Breztri Aerosphere 160 mcg-9mcg-4. 8mcg/actuat ion HFA aerosol inhaler INHALE 2 PUFFS BY MOUTH TWICE DAILY active Not Available Not Available No t Available Vitals Date Recorded Body height Body mass index (BMI) Body weight Pain severity - 0-10 verbal numeric rating [Score] - Reported Provider Name and Address Organization Details Last Updated DateTime 12/10/2024 165.1 cm 26.6 kg/m2 57008.78 g 5 Linda Shipley [facility] [employer] [facility] [employer] 12/10/2024 12:04:51 Date Recorded Body height Body mass index (BMI) Body weight Pain severity - 0-10 verbal numeric rating [Score] - Reported Provider Name and Address Organization Details Last Updated DateTime 01/01/2025 165.1 cm 26.6 kg/m2 51620.78 g 6 Linda Shipley [place] [employer] [facility] [employer] 01/01/2025 14:21:22 Date Recorded Body height Body mass index (BMI) Body weight Provider Name and Address Organization Details Last Updated DateTime 03/01/2025 165.1 cm 26.6 kg/m2 90665.78 g Leora Rinaldi [facility] [place] [employer] [facility] [employer] 03/01/2025 10:14:38 Date Recorded Body height Body mass index (BMI) Body weight Pain severity - 0-10 verbal numeric rating [Score] - Reported Provider Name and Address Organization Details Last Updated DateTime 04/05/2025 165.1 cm 26.6 kg/m2 44425.78 g 8 Linda Shipley [facility] [employer] [facility] [employer] 04/05/2025 09:06:09 Date Recorded Body height Body mass index (BMI) Body weight Pain severity - 0-10 verbal numeric rating [Score] - Reported Provider Name and Address Organization Details Last Updated DateTime 05/01/2025 165.1 cm 26.6 kg/m2 83603.78 g 6 Linda Shipley [facility] [employer] 05/01/2025 09:14:03 Social History Question Answer Notes LastModified by Organizat ion Details LastModified Time Tobacco Smoking Status Former Smoker Linda Shipley, BRAYDEN null, [employer] [facility] [employer] 12/10/2024 12:07:27 What Was The Date Of Your Most Recent Tobacco Screening? 12/10/2024 [email or web address] Information not available 12/10/2024 Sex: Unknown Functional Status None recorded. Mental Status None recorded. Family History Relationship Description Onset Age of this Age Resolved Age Notes LastModified by Organization Details LastModified Time Brother History of malignant neoplasm [email or web address] Not available 2024 12:06:44 Sister Kidney disease [email or web address] Not available 2024 12:07:04 Medical History Condition Response ARTHRITIS Y COPD Y CANCER: SPECIFY Y Gynecological HistoryNo gynecological history recorded. Obstetrics History GPAL:G 0 P 0 0 0 0 Past Encounters Encounter ID Performer Location Encounter Start Date Encounter Closed Date Diagnosis/Indication Diagnosis SNOMED-CT Code Diagnosis ICD10 Code Diagnosis IMO Codes Diagnosis Note [id number] Roque Durand MD [facility]_[address] [address] 12/10/2024 11:42:58 12/10/2024 12:33:59 Pain of hip region 06567437 M25.552 [id number] Roque Durand MD [address] [address] 01/01/2025 14:18:56 01/01/2025 14:38:26 Pain of hip region 15467464 M25.552 [id number] Roque Durand MD [facility] [address] [place] [address] 03/01/2025 10:11:44 03/01/2025 10:35:05 Pain of hip region 39789111 M25.551 M25.552 [id number] Roque Durand MD [facility] [address] [place] [address] 04/05/2025 09:01:19 04/05/2025 09:30:08 Pain of hip region 77990668 M25.552 972009 Osteoarthritis of hip 23 6010218 M16.12 [id number] Roque Durand MD [facility] [place] [address] [facility] [address] [place] [address] 05/01/2025 09:10:32 05/01/2025 09:38:18 Osteoarthritis of hip 752229899 M16.12 Pain of hip region 51499 002 M25.551 M25.552 [id number] Health Concerns Section Related Observation LastModified by Organization Detai ls LastModified Time None Recorded Concern Status LastModified by Organization Details LastModified Time None Recorded Advance Directives Directive None Recorded Payers Insurance Date Sequence Insurance Name Policy Number Policy Sosa Covered Member ID Sosa Member ID Guarantor Name 04/05/2025 1 [place] Alayna Pitts Carine [id number] Alayna A Carine 08/13/2024 1 *SELF PAY* Sh sid Pitts Carine 04/05/2025 1 [employer] (MEDICARE REPLACEMENT/A DVANTAGE - PPO) Alayna Pitts Carine [id number] Alayna Pitts Carine 04/29/2025 2 [place] WHEN MEDICARE OR MEDICARE REPLACEMENT PRIMARY) Alayna Pitts Carine [id number] Alayna Pitts Carine 04/29/2025 1 [facility] (MEDICARE REPLACEMENT/A DVANTAGE - PPO) [id number] Alayna Hawk [id number] Alayna Hawk OBGyn Episode No OBEpisode recorded.
== END 2025-05-06 11:43 | disposition home or self-care (01) ==
DX: M16.12 Unilateral primary osteoarthritis, left hip (principal)
CPT/HCPCS: 20610; 77002; J1010; J2003